=== PATIENT | male | born 1940 | race Caucasian/White ===

== ENCOUNTER 2021-04-11 11:32 | Observation (INO) ==
[2021-04-11] MEDS ORDERED: guaiFENesin 600 MG TABCR PO STA (12:13)
[2021-04-11] MEDS ORDERED: SODIUM CHLORIDE 0.9% 500 ML IV ONE (12:13)
[2021-04-11] MEDS ORDERED: ALBUTEROL HFA 8 GM INHALER INH ONE (12:13)
[2021-04-11 12:39] LABS: Basophils # (auto) 0.01 K/uL (0-0.2); Basophils % (auto) 0.2 %; Eosinophils # (auto) 0.01 K/uL (0-0.5); Eosinophils % (auto) 0.2 %; Hematocrit (blood only) 40.1 % (42-52); Hemoglobin 13.5 g/dL (14.0-18.0); Lymphocytes % (auto) 21.1 %; Mean Corpuscular Hemoglobin 29.5 pg (25-34); Mean Corpuscular Hgb Conc 33.7 g/dL (32-36); Mean Corpuscular Volume 87.6 fL (80-100); Monocytes # (auto) 0.31 K/uL (0.11-0.59); Monocytes % (auto) 7.3 %; Neutrophils # (auto) 3.03 K/uL (1.4-6.5); Neutrophils % (auto) 71.2 %; Platelet Count 169 K/uL (130-400); RDW Coefficient of Variation 15.4 % (11.5-14.5); RDW Standard Deviation 49.8 fL (36.4-46.3); Red Blood Count 4.58 M/uL (4.7-6.1); White Blood Count 4.26 K/uL (4.8-10.8)
--- NOTE | 2021-04-11 12:54 | XRay Report ---
XR chest 1V portable CLINICAL HISTORY: Atypical chest pain COMPARISON STUDY: 10/02/2018 FINDINGS: The heart is at the upper limits of normal in size. There is a left subclavian dual-chamber central venous pacemaker. There is no failure. There is no focal pulmonary consolidation. There are no pleural effusions.[ IMPRESSION: No active disease in the chest. ACT 112: Negative or not required by law. Electronically signed by: Stevan Hackett M.D. 04/11/2021 12:53 PM
[2021-04-11 13:02] LABS: Albumin Level 3.2 gm/dl (3.4-5.0); BUN Creatinine Ratio 16.8 (10-20); Calcium 8.8 mg/dl (8.5-10.1); Creatinine Clr Calc Pharmacy 82.8 ml/min; Est GFR (African American) 95.4 ml/min; Est GFR (Non-African American) 82.3 ml/min; Phosphorus 3.2 mg/dl (2.5-4.9)
[2021-04-11 13:27] LABS: Albumin Globulin Ratio 0.8 (0.9-2); Bilirubin,Total 0.3 mg/dl (0.2-1); Globulin 4.2 gm/dl (2.5-4.0); Thyroid Stimulating Hormone 1.15 uIu/ml (0.300-4.500); Total Protein 7.4 gm/dl (6.4-8.2); Troponin I 0.03 ng/ml (0-0.045)
[2021-04-11] MEDS ORDERED: dexAMETHasone**PF** 10 MG/ML VIAL IV ONE (14:36)
[2021-04-11] MEDS ORDERED: ONDANSETRON INJ 2 MG/ML 2 ML VIAL IV STA (14:38)
[2021-04-11] MEDS ORDERED: FAMOTIDINE 20MG IV PUSH 20 MG/5 ML SYR IV STA (14:38)
--- NOTE | 2021-04-11 15:12 | CT Scan Report ---
CT head/brain wo con CLINICAL HISTORY: 80 years-old Male with confusion, covid. Acutely altered mental status. COVID Posi tive. TECHNIQUE: Multiple axial CT images of the head were obtained without contrast. A dose lowering tech nique was utilized adhering to the principles of ALARA. CT DOSE: 853.38 mGy.cm COMPARISON: Head CT 10/02/2018. FINDINGS: No acute intracranial hemorrhage, midline shift, intracranial mass, hydrocephalus, territorial ischem ia or abnormal extra-axial collection. Age-related involutional changes with ex vacuo ventriculomegal y. Extensive and confluent white matter hypodensities suggestive of chronic microvascular ischemic di sease, similar to comparison. Cerebral vascular calcifications. The calvarium is intact. Mastoid air cells are clear. Mild mucoperiosteal thickening of the ethmoid air cells. Unremarkable orbits and soft tissues. IMPRESSION: No acute intracranial abnormality. ACT 112: Negative or not required by law. The above report was generated using voice recognition software. It may contain grammatical, syntax o r spelling errors. Electronically signed by: Yusef Perry M.D. 04/11/2021 3:10 PM
--- NOTE | 2021-04-11 16:01 | History & Physical Report ---
Date of Service April 11, 2021 Assessment & Plan (1) SARS-CoV-2 positive: Mr. Quiroz is an 80 year old male with a history of Insulin-Requiring Type 2 Diabetes Mellitus, Dyslipidemia, Prior CVA, and a Permanent Dual Chamber Pacemaker who presents today with illness over the past 5 days. Patient currently has a coronavirus outbreak in his family, and they beginning on Wednesday, he began to feel poorly, lethargic, with some mild achiness. As the days progressed, he seems to get periodically confused, and is feeling poorly in general. Over the past couple of days he has had fevers and chills. He has had a mild but nonproductive cough. He denies any shortness of breath at this time. Patient denies any dyspnea on exertion, chest pain, chest heaviness, chest tightness, or chest pressure. He denies any sputum production or hemoptysis. His appetite is normal. He has not had any vomiting or diarrhea. And denies any headache or stiff neck. Because of these symptoms, patient's daughter brought him in for further evaluation. He has tested positive for SARS-CoV-2. While in the emergency room he became transiently confused and his O2 saturation dropped down to 90%. Subsequent CT scan of the head shows no acute processes. Chest x-ray does not show any infiltrates. Due to his transiently altered mental status, borderline hypoxia, close exposure to COVID-19, and testing SARS-CoV-2 positive recommend the following: -- Admit to observation status on telemetry. -- Continue supplemental oxygen to maintain O2 saturation greater than 94%. -- IV Dexamethasone 6 mg daily. -- COVID precautions. -- Supportive measures. (2) Type 2 diabetes mellitus: -- Glycemic pharmacy consultation. -- BSG checks. -- Diabetic diet. (3) Dyslipidemia: -- Continue Atorvastatin 40 mg daily. (4) Pacemaker: Permanent dual chamber pacemaker. -- No cardiac symptoms. (5) Elevated blood pressure reading: -- Patient's daughter states that his blood pressure has been running low recently. His blood pressure in the emergency room was elevated. -- Continue to monitor. -- If necessary, can add a calcium channel mary ann or p.r.n. hydralazine. History of Present Illness Chief Complaint: -- SARS CoV-2. -- Transient Hypoxia. -- Transient Confusion. Primary Care Provider: Melany Olson MD Mr. Quiroz is an 80 year old male with a history of Insulin-Requiring Type 2 Diab etes Mellitus, Dyslipidemia, Prior CVA, and a Permanent Dual Chamber Pacemaker who presents today with illness over the past 5 days. Patient currently has a coronavirus outbreak in his family, and they beginning on Wednesday, he began to feel poorly, lethargic, with some mild achiness. As the days progressed, he seems to get periodically confused, and is feeling poorly in general. Over the past couple of days he has had fevers and chills. He has had a mild but nonproductive cough. He denies any shortness of breath at this time. Patient denies any dyspnea on exertion, chest pain, chest heaviness, chest tightness, or chest pressure. He denies any sputum production or hemoptysis. His appetite is normal. He has not had any vomiting or diarrhea. And denies any headache or stiff neck. Because of these symptoms, patient's daughter brought him in for further evaluation. He has tested positive for SARS-CoV-2. While in the emergency room he became transiently confused and his O2 saturation dropped down to 90%. CT scan of the head shows no acute processes. Chest x-ray does not show any infiltrates. Allergies Allergy/AdvReac Type Severity Reaction Status Date / Time No Known Allergies Allergy Unverified 04/11/21 14:52 Home Medications Medication Instructions Recorded Confirmed Type aspirin [Aspirin Low Dose] 81 mg PO QAM 10/02/18 04/11/21 History atorvastatin [Lipitor] 40 mg PO QPM 10/02/18 04/11/21 History docusate sodium 100 mg PO QPM 10/02/18 04/11/21 History insulin NPH and regular human 10 units SUBCUT QPM 10/02/18 04/11/21 History [Novolin 70/30 U-100 Insulin] insulin NPH and regular human 23 units SUBCUT QAM 10/02/18 04/11/21 History [Novolin 70/30 U-100 Insulin] metformin 1,000 mg PO BID 10/02/18 04/11/21 History tamsulosin [Flomax] 0.4 mg PO Q2D 10/02/18 04/11/21 History vitamin B complex 1 cap PO QAM 10/02/18 04/11/21 History cholecalciferol (vitamin D3) 25 mcg PO HS 05/14/21 05/14/21 History [Vitamin D3] ferrous sulfate [iron] 325 mg PO HS 04/11/21 04/11/21 History lactobacillus combination no.4 0 mmu cells PO HS 04/11/21 04/11/21 History [Probiotic] multivitamin 1 tab PO QAM 04/11/21 04/11/21 History Past Med/Surg History Medical History (Updated 04/11/21 @ 15:58 by Dane Schreiber PA-C) History of stroke Surgical History History of permanent cardiac pacemaker placement Family History Other No pertinent family history Social History Smoking Status: Former smoker Tobacco Type: Cigarettes Preferred Language: Urdu Communication Ability: Effective Feels Safe at Home: Yes Review of Systems Review of Systems: All systems reviewed & are unremarkable except as noted in Subjective Physical Exam Physical Exam: GENERAL: Patient in no acute distress. Supplemental oxygen is in place. HEENT: Head is atraumatic, normocephalic. EOM's intact. Facies symmetric. No perioral cyanosis. Mucous membranes moist. NECK: No JVD. JVP is not elevated Carotid upstrokes are + 2 bilaterally. No bruits are noted. CHEST/LUNGS: Clear to auscultation throughout all lung flores. No wheezes, rales, or crackles. CVS: S1 and S2 are regular without obvious murmurs, gallops, or rubs. PMI is nondisplaced. No lifts, heaves, or thrills. No abdominal aortic or renal bruits. Palpable pacemaker generator present left subclavian fossa. ABDOMINAL EXAM: Bowel sounds are present. No masses, organomegaly, or tenderness. EXTREMITIES: No clubbing or cyanosis. No edema. Intact radial pulses bilaterally. NEUROLOGIC EXAM: Patient is awake, alert, and interactive. Pleasant and cooperative. Answers questions appropriately. Speech is clear. Normal movement in all 4 extremities. Gait pattern was not assessed. EKG 04/11/21: -- Atrially sensed, electronic V-paced rhythm with prolonged AV conduction. -- CO interval is prolonged at 266 msec. -- QRS duration 176 msec secondary to pacemaker induced left bundle-branch block. -- Correct QT interval is prolonged at 502 msec Results & Data Results & Data ([facility]) Vital Signs (Past 12 Hours) Vital Signs Temp Pulse Pulse Resp BP BP Pulse Ox 04/11/21 15:28 38.5 C H 99 H 29 H 167/85 H 94 04/11/21 12:15 88 15 97 04/11/21 11:36 37.1 C 87 87 18 163/77 H 163/77 H 96 Laboratory Results Laboratory Results - last 24 hr 04/11/21 04/11/21 04/11/21 12:23 12:23 12:23 WBC 4.26 L RBC 4.58 L Hgb 13.5 L Hct 40.1 L MCV 87.6 MCH 29.5 MCHC 33.7 RDW Std Deviation 49.8 H RDW Coeff of Jean Maire 15.4 H Plt Count 169 MPV 11.0 H Immature Gran % (Auto) 0.0 Neut % (Auto) 71.2 Lymph % (Auto) 21.1 Petroleum % (Auto) 7.3 Eos % (Auto) 0.2 Baso % (Auto) 0.2 Neut # (Auto) 3.03 Lymph # (Auto) 0.90 L Petroleum # (Auto) 0.31 Eos # (Auto) 0.01 Baso # (Auto) 0.01 Immature Gran # (Auto) 0.00 PT Cancelled INR Cancelled Sodium 134 L Potassium Chloride 101 Carbon Dioxide 29 Anion Gap 4.0 BUN 14 Creatinine 0.85 Est Cr Clr Drug Dosing 82.8 Est GFR ( Amer) 95.4 Est GFR (Non-Af Amer) 82.3 BUN/Creatinine Ratio 16.8 Glucose 196 H POC Glucose Calcium 8.8 Phosphorus 3.2 Magnesium Total Bilirubin 0.3 Direct Bilirubin AST ALT 50 Alkaline Phosphatase 99 Troponin I 0.030 Total Protein 7.4 Albumin 3.2 L Globulin 4.2 H Albumin/Globulin Ratio 0.8 L Lipase 64 L TSH 1.150 COVID-19 Eval Order SARS-CoV-2 (PCR) 04/11/21 04/11/21 04/11/21 14:22 Unknown Unknown WBC RBC Hgb Hct MCV MCH MCHC RDW Std Deviation RDW Coeff of Jean Marie Plt Count MPV Immature Gran % (Auto) Neut % (Auto) Lymph % (Auto) Petroleum % (Auto) Eos % (Auto) Baso % (Auto) Neut # (Auto) Lymph # (Auto) Petroleum # (Auto) Eos # (Auto) Baso # (Auto) Immature Gran # (Auto) PT INR Sodium Potassium Chloride Carbon Dioxide Anion Gap BUN Creatinine Est Cr Clr Drug Dosing Est GFR ( Amer) Est GFR (Non-Af Amer) BUN/Creatinine Ratio Glucose POC Glucose 113 H Calcium Phosphorus Magnesium Total Bilirubin Direct Bilirubin AST ALT Alkaline Phosphatase Troponin I Total Protein Albumin Globulin Albumin/Globulin Ratio Lipase TSH COVID-19 Eval Order Covid19 at [facility] SARS-CoV-2 (PCR) POSITIVE A* Diagnostic Findings HEAD CT SCAN 04/11/21: No acute intracranial hemorrhage, midline shift, intracranial mass, hydrocephalus, territorial ischemia or abnormal extra-axial collection. Age- related involutional changes with ex vacuo ventriculomegaly. Extensive and confluent white matter hypodensities suggestive of chronic microvascular ischemic disease, similar to comparison. Cerebral vascular calcifications. The calvarium is intact. Mastoid air cells are clear. Mild mucoperiosteal thickening of the ethmoid air cells. Unremarkable orbits and soft tissues. IMPRESSION: -- No acute intracranial abnormality. CXR 04/11/21: -- The heart is at the upper limits of normal in size. -- There is a left subclavian dual-chamber central venous pacemaker. -- There is no failure. -- There is no focal pulmonary consolidation. -- There are no pleural effusions. IMPRESSION: -- No active disease in the chest. Code Status & VTE Plan VTE Prophylaxis Plan VTE Prophylaxis will be ordered: Yes Supervising Physician Co-Signing Physician Notes patient not seen by physician to prevent COVID exposure. d/w RICKY, agree with his note above. patient was having issues with fever and cough, prompted ER visit. found to be COVID positive, hypoxic. responding well to 2L NC per chart. plan to continue IV dexamethasone, monitor DM with steroids on board. PG Care Time/CCT Total # of Minutes Spent Total Time Spent with Patient: Total time spent is greater than 50% in coordination of care (as documented) at patient's floor/unit and/or counseling patient:35 Coding Level of Care Code 46277 OBS Care - Level 3 Diagnoses SARS-CoV-2 positive U07.1 Type 2 diabetes mellitus E11.9 Dyslipidemia E78.5 Pacemaker Z95.0 Elevated blood pressure reading R03.0 Time Spent (min) 55
[2021-04-11] MEDS ORDERED: MAGNESIUM HYDROXIDE SUSP 30 ML UDC PO PRN (18:56)
[2021-04-11] MEDS ORDERED: NITROGLYCERIN SL 0.4 MG/TAB TAB SL PRN (18:56)
[2021-04-11] MEDS ORDERED: POLYETHYLENE (MIRALAX) 17 GM PACK PO PRN (18:56)
[2021-04-11] MEDS ORDERED: ZOLPIDEM TARTRATE 5 MG TAB PO PRN (18:56)
[2021-04-11] MEDS ORDERED: ONDANSETRON INJ 2 MG/ML 2 ML VIAL IV PRN (18:56)
[2021-04-11] MEDS ORDERED: ALUMINUM/MAGNESIUM SUSP 30 ML UDC PO PRN (18:56)
[2021-04-11] MEDS ORDERED: PHARMACY GLYCEMIC MGMT CONSULT SCH (19:22)
[2021-04-11] MEDS ORDERED: SODIUM CHLORIDE 0.9% 1000ML 1,000 ML IV SCH (19:30)
[2021-04-11] MEDS ORDERED: INSULIN HUMAN NPH SC STA ×2 (19:37→21:46)
--- NOTE | 2021-04-11 19:47 | Pharmacy Report ---
Pharmacy Glycemic Short Note 2 - Date of Service April 11, 2021 - Glycemic Short BSG Results (Last 24 hours): 04/11/21 04/11/21 12:23 14:22 Glucose 196 H POC Glucose 113 H OUTPATIENT ANTIDIABETIC REGIMEN: * Metformin 1000 mg PO BIDM * Relion N 70/30 - 25 units SC AM + 15 units SC PM * HbA1c pending ASSESSMENT: * 80 yo M admitted secondary to Covid pneumonia. Pharmacy has been consulted to assist with inpatient glycemic management. * Admission BSG was 196 mg/dL. Trended down to 113 mg/dL later. He did receive 6 mg of IV dexamethasone in the ED which will be continued upon admission. * Will utilize NPH to help with transition back to home insulin upon discharge. Will give full home dose of NPH now x 1 given patient received Dexamethasone. * Pending BSG this evening, may need another dose of NPH. Defer AM dose of NPH until AM BSG returns. * Will start aggressive Novolog based on weight and stress of three to help manage steroid-induced postprandial hyperglycemia. Utilizing goal range of 110-140 mg/dL. Hold metformin while inpatient. PLAN FOR INPATIENT GLYCEMIC CONTROL: * Hold outpatient oral diabetes medications * Basal insulin * NPH 10 units SC x 1 * Bolus insulin * NovoLog per scale ACHS or Q6hrs while NPO * Goal Range: Low 110 mg/dL - High 140 mg/dL * Correction Factor: 15 mg/dL/unit * Nutritional / Prandial insulin per carb ratio of 1 unit per 5 grams CHO consumed PLAN FOR DISCHARGE: * To be determined
[2021-04-11] MEDS: ALBUTEROL HFA 8 GM INHALER INH SCH (19:53)
[2021-04-11] MEDS ORDERED: INSULIN HUMAN 70% NPH/30% REGULAR SQ SCH (21:00)
[2021-04-11] MEDS: INSULIN ASPART 100 UNITS/ML 3 ML PEN SC SCH ×2 (21:00→21:21)
[2021-04-11] MEDS: ASPIRIN 81 MG ECTAB PO SCH (21:01)
[2021-04-11] MEDS: ATORVASTATIN 40 MG TAB PO SCH (21:01)
[2021-04-11] MEDS: DOCUSATE SODIUM 100 MG CAP PO SCH (21:02)
[2021-04-11] MEDS: FERROUS SULFATE 325 MG TAB PO SCH (21:02)
[2021-04-11] MEDS: guaiFENesin 600 MG TABCR PO SCH (21:03)
[2021-04-11] MEDS: HEPARIN SOD 5,000 UNIT/0.5 ML VIAL SQ SCH (21:04)
[2021-04-11] MEDS: ADVANCED PROBIOTIC 1250 MG CAPSULE PO SCH (21:04)
[2021-04-11] MEDS: CHOLECALCIFEROL 1,000 UNITS 25 MCG TAB PO SCH (21:04)
--- NOTE | 2021-04-11 21:39 | Emergency Department Note ---
Impression & Plan COVID-19, Hypoxia, Nausea & vomiting ED Provider Note NAME: BRYANT COLLAZO AGE: 80 SEX: M ARRIVES VIA: Ambulance INFORMANT: Patient, Daughter ED PROVIDER(S): Maurice Patel MD CHIEF COMPLAINT: Cough, feverish, weakness PLAN: Disposition: Admit MEDICAL DECISION MAKING: The patient is a pleasant 80-year-old gentleman with a past medical history of hypertension, diabetes, hyperlipidemia who presents to the emergency department accompanied by his daughter concern for cough, congestion, feverishness and generalized weakness over the past week. They report other family members had mild congestion earlier in the week that resolved. One of their family members was tested for COVID-19 and was negative. On initial evaluation the patient denied any particular complaints. On arrival the patient is afebrile with stable VSS. He appears clinically dry. He has a scant intermittent wheeze but is otherwise clear. Abdomen is benign. EKG is paced without overt acute ischemia. Chest x-ray negative for acute cardiopulmonary process. WBC 4.2 with lymphopenia to 0.9. H/H 13.5/40.1 proximal to prior values though no recent for comparison. Glucose 196 however chemistry without metabolic acidosis. Electrolytes without significant abnormality. LFTs were unremarkable. Troponin 0.03, within normal limits. Patient's COVID-[address] of the head was performed after the patient had some disorientation where he did not remember where he was after napping briefly but then recovered and was answering questions appropriately. CT of the head was negative for acute process. Of note during reevaluation following patient's delirium it was noted that his O2 saturation did decrease 90% on room air. Additionally he became suddenly nauseated and was vomiting. Thus, given the patient's confirmed COVID- 19 infection, symptomatic with mild hypoxia reasonable to admit the patient for further management. Dexamethasone administered. Patient and daughter at the bedside were in agreement with this plan. Case was discussed with Dr. Ramirez, [facility] [place], who will evaluate the patient for admission. Triage Nursing notes reviewed and agree them. Prior medical records reviewed Vital Signs: reviewed and remarkable for no significant abnormalities Differential diagnosis: Infection, dehydration, metabolic abnormality, hypo/hyperglycemia, electrolyte disturbance, anemia, hypoxia, cardiac sources, intracerebral event, toxicologic, neurologic, as well as other pathologies. ER treatment provided: See below. Diagnostics interpreted by me: ECG: Atrial sensed ventricular paced rhythm, 86 bpm, no ectopy, no overt acute ischemia. Cardiac Monitoring: An order for continuous cardiac monitoring was placed and demonstrated Atrial sensed ventricular paced rhythm, 86 bpm, no ectopy. Laboratory studies: See below Imaging studies: See below Consultation(s): Dr. Ramirez, [facility] [place] HPI: The patient is a pleasant 80-year-old gentleman with a past medical history of hypertension, diabetes, hyperlipidemia who presents to the emergency de partment accompanied by his daughter concern for cough, congestion, feverishness and generalized weakness over the past week. They report other family members had mild congestion earlier in the week that resolved. One of their family members was tested for COVID-19 and was negative. On initial evaluation the patient denied any particular complaints. ROS: See above HPI for pertinent positives & negatives. A total of 10 systems reviewed and were otherwise negative. PAST MEDICAL HISTORY:See Below PAST SURGICAL HISTORY:See Below FAMILY HISTORY:See Below SOCIAL HISTORY:See Below HOME MEDICATIONS:See Below ALLERGIES:See Below VITALS:See Below PHYSICAL EXAMINATION: GENERAL: Awake, alert, fatigued-appearing, in no distress HENT: Normocephalic, atraumatic. Oropharynx with dry mucous membranes and otherwise unremarkable. EYES: Normal conjunctiva. Sclera non-icteric. NECK: Supple. No nuchal rigidity. FROM. No JVD. RESPIRATORY: Scant intermittent wheeze but is otherwise clear. CARDIAC: Regular rate, normal rhythm. Extremities warm and well perfused. Pulses equal. ABDOMEN: Soft, non-distended. No tenderness to palpation. No rebound or guarding. No masses. RECTAL: Deferred. MUSCULOSKELETAL: Chest examination reveals no tenderness. The back is symmet rical on inspection without obvious abnormality. There is no CVA tenderness to palpation. No joint edema. LOWER EXTREMITIES: Calves are equal size bilaterally and non-tender. No edema. No discoloration. NEURO: Normal sensorium. No sensory or motor deficits noted. SKIN: No rash or jaundice noted. Maurice Patel MD Past Med/Surg History Medical History Dyslipidemia History of stroke Type 2 diabetes mellitus Surgical History History of permanent cardiac pacemaker placement Family History Other No pertinent family history Social History Smoking Status: Former smoker Tobacco Type: Cigarettes Second Hand Exposure: No; Do You Dip or Chew Tobacco: No; Hx Alcohol Use: No Hx Substance Use: No Preferred Language: Honduran Communication Ability: Effective Shear Grinder Operator Required: No Beliefs That Will Affect Care: None Current Living Situation: Family Feels Safe at Home: Yes Safety Concerns: Feels Safe At This Time Assistive Devices: Glasses and Walker Allergies Allergies Allergy/AdvReac Type Severity Reaction Status Date / Time No Known Allergies Allergy Unverified 04/11/21 14:52 Home Meds Home Medications Medication Instructions Recorded Confirmed aspirin [Aspirin Low Dose] 81 mg PO QAM 10/02/18 04/11/21 atorvastatin [Lipitor] 40 mg PO QPM 10/02/18 04/11/21 docusate sodium 100 mg PO QPM 10/02/18 04/11/21 insulin NPH and regular human 10 units SUBCUT QPM 10/02/18 04/11/21 [Novolin 70/30 U-100 Insulin] insulin NPH and regular human 23 units SUBCUT QAM 10/02/18 04/11/21 [Novolin 70/30 U-100 Insulin] metformin 1,000 mg PO BID 10/02/18 04/11/21 tamsulosin [Flomax] 0.4 mg PO Q2D 10/02/18 04/11/21 vitamin B complex 1 cap PO QAM 10/02/18 04/11/21 cholecalciferol (vitamin D3) 25 mcg PO HS 04/11/21 04/11/21 [Vitamin D3] ferrous sulfate [iron] 325 mg PO HS 04/11/21 04/11/21 lactobacillus combination no.4 0 mmu cells PO HS 04/11/21 04/11/21 [Probiotic] multivitamin 1 tab PO QAM 04/11/21 04/11/21 Results & Data (ED) Vital Signs Vital Signs - 24 hr 04/11/21 11:36 04/11/21 12:15 04/11/21 12:30 Temperature 37.1 C Temperature Source Oral Pulse Rate 87 88 88 Pulse Rate [Apical] 87 Pulse Rate from SpO2 Sensor 88 Pulse Rhythm Regular Pulse Rhythm [Apical] Regular Pulse Strength [Apical] Normal Respiratory Rate 18 15 21 Respiratory Effort / Characteristics Non-Labored Spontaneous Respiratory Depth Normal Blood Pressure 163/77 H 138/80 Blood Pressure [Right Arm] 163/77 H Blood Pressure Mean 105 99 Blood Pressure Mean [Right Arm] 105 Blood Pressure Position Lying Blood Pressure Position [Right Arm] Semi-fowlers Pulse Oximetry 96 97 96 Oxygen Delivery Method Room Air Room Air Oxygen Flow Rate Sepsis New/Unexplained Change in Mental Status No Sepsis Action Taken by Nursing No Action Required 04/11/21 12:41 04/11/21 12:50 04/11/21 13:00 Temperature Temperature Source Pulse Rate 86 87 90 Pulse Rate [Apical] Pulse Rate from SpO2 Sensor 86 88 91 H Pulse Rhythm Pulse Rhythm [Apical] Pulse Strength [Apical] Respiratory Rate 19 25 H 22 Respiratory Effort / Characteristics Respiratory Depth Blood Pressure 145/76 H Blood Pressure [Right Arm] Blood Pressure Mean 99 Blood Pressure Mean [Right Arm] Blood Pressure Position Blood Pressure Position [Right Arm] Pulse Oximetry 96 95 94 Oxygen Delivery Method Oxygen Flow Rate Sepsis New/Unexplained Change in Mental Status Sepsis Action Taken by Nursing 04/11/21 13:01 04/11/21 13:11 04/11/21 13:20 Temperature Temperature Source Pulse Rate 96 H 94 H 92 H Pulse Rate [Apical] Pulse Rate from SpO2 Sensor 96 H 92 H 92 H Pulse Rhythm Pulse Rhythm [Apical] Pulse Strength [Apical] Respiratory Rate 23 17 20 Respiratory Effort / Characteristics Respiratory Depth Blood Pressure Blood Pressure [Right Arm] Blood Pressure Mean Blood Pressure Mean [Right Arm] Blood Pressure Position Blood Pressure Position [Right Arm] Pulse Oximetry 96 93 95 Oxygen Delivery Method Oxygen Flow Rate Sepsis New/Unexplained Change in Mental Status Sepsis Action Taken by Nursing 04/11/21 13:30 04/11/21 13:41 04/11/21 13:50 Temperature Temperature Source Pulse Rate 97 H Pulse Rate [Apical] Pulse Rate from SpO2 Sensor 93 H 97 H 94 H Pulse Rhythm Pulse Rhythm [Apical] Pulse Strength [Apical] Respiratory Rate 26 H Respiratory Effort / Characteristics Respiratory Depth Blood Pressure 153/93 H Blood Pressure [Right Arm] Blood Pressure Mean 113 Blood Pressure Mean [Right Arm] Blood Pressure Position Blood Pressure Position [Right Arm] Pulse Oximetry 94 96 93 Oxygen Delivery Method Oxygen Flow Rate Sepsis New/Unexplained Change in Mental Status Sepsis Action Taken by Nursing 04/11/21 14:00 04/11/21 14:11 04/11/21 14:20 Temperature Temperature Source Pulse Rate Pulse Rate [Apical] Pulse Rate from SpO2 Sensor 96 H 93 H 97 H Pulse Rhythm Pulse Rhythm [Apical] Pulse Strength [Apical] Respiratory Rate Respiratory Effort / Characteristics Respiratory Depth Blood Pressure 157/79 H Blood Pressure [Right Arm] Blood Pressure Mean 105 Blood Pressure Mean [Right Arm] Blood Pressure Position Blood Pressure Position [Right Arm] Pulse Oximetry 93 92 93 Oxygen Delivery Method Oxygen Flow Rate Sepsis New/Unexplained Change in Mental Status Sepsis Action Taken by Nursing 04/11/21 14:30 04/11/21 14:41 04/11/21 14:51 Temperature Temperature Source Pulse Rate Pulse Rate [Apical] Pulse Rate from SpO2 Sensor 102 H 99 H 97 H Pulse Rhythm Pulse Rhythm [Apical] Pulse Strength [Apical] Respiratory Rate Respiratory Effort / Characteristics Respiratory Depth Blood Pressure 168/95 H Blood Pressure [Right Arm] Blood Pressure Mean 119 Blood Pressure Mean [Right Arm] Blood Pressure Position Blood Pressure Position [Right Arm] Pulse Oximetry 96 97 97 Oxygen Delivery Method Oxygen Flow Rate Sepsis New/Unexplained Change in Mental Status Sepsis Action Taken by Nursing 04/11/21 15:09 04/11/21 15:10 04/11/21 15:21 Temperature Temperature Source Pulse Rate Pulse Rate [Apical] Pulse Rate from SpO2 Sensor 94 H 98 H 97 H Pulse Rhythm Pulse Rhythm [Apical] Pulse Strength [Apical] Respiratory Rate Respiratory Effort / Characteristics Respiratory Depth Blood Pressure Blood Pressure [Right Arm] Blood Pressure Mean Blood Pressure Mean [Right Arm] Blood Pressure Position Blood Pressure Position [Right Arm] Pulse Oximetry 96 96 97 Oxygen Delivery Method Oxygen Flow Rate Sepsis New/Unexplained Change in Mental Status Sepsis Action Taken by Nursing 04/11/21 15:28 04/11/21 15:30 04/11/21 15:40 Temperature 38.5 C H Temperature Source Oral Pulse Rate 90 99 H Pulse Rate [Apical] 99 H Pulse Rate from SpO2 Sensor 96 H 99 H Pulse Rhythm Pulse Rhythm [Apical] Regular Pulse Strength [Apical] Normal Respiratory Rate 29 H 26 H 28 H Respiratory Effort / Characteristics Non-Labored Spontaneous Respiratory Depth Normal Blood Pressure 167/85 H Blood Pressure [Right Arm] 167/85 H Blood Pressure Mean 112 Blood Pressure Mean [Right Arm] 112 Blood Pressure Position Blood Pressure Position [Right Arm] Pulse Oximetry 94 94 94 Oxygen Delivery Method Nasal Cannula Oxygen Flow Rate 2 Sepsis New/Unexplained Change in Mental Status Sepsis Action Taken by Nursing Laboratory Data Attestation: I reviewed the patient's lab results. Result diagrams: 04/11/21 12:23 04/11/21 12:23 Lab Results 04/11/21 04/11/21 04/11/21 Range/Units 12:23 12:23 12:23 WBC 4.26 L (4.8-10.8) K/uL RBC 4.58 L (4.7-6.1) M/uL Hgb 13.5 L (14.0-18.0) g/dL Hct 40.1 L (42-52) % MCV 87.6 (80-100) fL MCH 29.5 (25-34) pg MCHC 33.7 (32-36) g/dL RDW Std Deviation 49.8 H (36.4-46.3) fL RDW Coeff of Jean Marie 15.4 H (11.5-14.5) % Plt Count 169 (130-400) K/uL MPV 11.0 H (7.4-10.4) fL Immature Gran % (Auto) 0.0 % Neut % (Auto) 71.2 % Lymph % (Auto) 21.1 % Smith % (Auto) 7.3 % Eos % (Auto) 0.2 % Baso % (Auto) 0.2 % Neut # (Auto) 3.03 (1.4-6.5) K/uL Lymph # (Auto) 0.90 L (1.2-3.4) K/uL Smith # (Auto) 0.31 (0.11-0.59) K/uL Eos # (Auto) 0.01 (0-0.5) K/uL Baso # (Auto) 0.01 (0-0.2) K/uL Immature Gran # (Auto) 0.00 (0.00-0.02) K/uL PT Cancelled INR Cancelled Sodium 134 L (136-145) mmol/L Potassium (3.5-5.1) mmol/L Chloride 101 (98-107) mmol/L Carbon Dioxide 29 (21-32) mmol/L Anion Gap 4.0 (3-11) BUN 14 (7-18) mg/dl Creatinine 0.85 (0.6-1.4) mg/dl Est Cr Clr Drug Dosing 82.8 ml/min Est GFR ( Amer) 95.4 ml/min Est GFR (Non-Af Amer) 82.3 ml/min BUN/Creatinine Ratio 16.8 (10-20) Glucose 196 H (70-99) mg/dl POC Glucose (70-99) mg/dl Calcium 8.8 (8.5-10.1) mg/dl Phosphorus 3.2 (2.5-4.9) mg/dl Magnesium (1.8-2.4) mg/dl Total Bilirubin 0.3 (0.2-1) mg/dl Direct Bilirubin (0-0.2) mg/dl AST (15-37) U/L ALT 50 (12-78) U/L Alkaline Phosphatase 99 (45-117) U/L Troponin I 0.030 (0-0.045) ng/ml Total Protein 7.4 (6.4-8.2) gm/dl Albumin 3.2 L (3.4-5.0) gm/dl Globulin 4.2 H (2.5-4.0) gm/dl Albumin/Globulin Ratio 0.8 L (0.9-2) Lipase 64 L (73-393) U/L TSH 1.150 (0.300-4.500) uIu/ml 04/11/21 Range/Units 14:22 WBC (4.8-10.8) K/uL RBC (4.7-6.1) M/uL Hgb (14.0-18.0) g/dL Hct (42-52) % MCV (80-100) fL MCH (25-34) pg MCHC (32-36) g/dL RDW Std Deviation (36.4-46.3) fL RDW Coeff of Jean Marie (11.5-14.5) % Plt Count (130-400) K/uL MPV (7.4-10.4) fL Immature Gran % (Auto) % Neut % (Auto) % Lymph % (Auto) % Smith % (Auto) % Eos % (Auto) % Baso % (Auto) % Neut # (Auto) (1.4-6.5) K/uL Lymph # (Auto) (1.2-3.4) K/uL Smith # (Auto) (0.11-0.59) K/uL Eos # (Auto) (0-0.5) K/uL Baso # (Auto) (0-0.2) K/uL Immature Gran # (Auto) (0.00-0.02) K/uL PT INR Sodium (136-145) mmol/L Potassium (3.5-5.1) mmol/L Chloride (98-107) mmol/L Carbon Dioxide (21-32) mmol/L Anion Gap (3-11) BUN (7-18) mg/dl Creatinine (0.6-1.4) mg/dl Est Cr Clr Drug Dosing ml/min Est GFR ( Amer) ml/min Est GFR (Non-Af Amer) ml/min BUN/Creatinine Ratio (10-20) Glucose (70-99) mg/dl POC Glucose 113 H (70-99) mg/dl Calcium (8.5-10.1) mg/dl Phosphorus (2.5-4.9) mg/dl Magnesium (1.8-2.4) mg/dl Total Bilirubin (0.2-1) mg/dl Direct Bilirubin (0-0.2) mg/dl AST (15-37) U/L ALT (12-78) U/L Alkaline Phosphatase (45-117) U/L Troponin I (0-0.045) ng/ml Total Protein (6.4-8.2) gm/dl Albumin (3.4-5.0) gm/dl Globulin (2.5-4.0) gm/dl Albumin/Globulin Ratio (0.9-2) Lipase (73-393) U/L TSH (0.300-4.500) uIu/ml Administered Medications Albuterol (Albuterol Hfa 8 Gm Inhaler) 2 puffs INH Q6R ADELITA Stop: 05/11/21 18:59 Last Admin: 04/12/21 00:44 Dose: 2 puffs Documented by: [id number] Admin: 04/11/21 19:53 Dose: 2 puffs Documented by: [id number] Aspirin (Aspirin 81 Mg Ectab) 81 mg PO QAM ADELITA Stop: 05/11/21 18:55 Last Admin: 04/11/21 21:01 Dose: 81 mg Documented by: [id number] Atorvastatin Calcium (Atorvastatin 40 Mg Tab) 40 mg PO QPM ADELITA Stop: 05/11/21 20:59 Last Admin: 04/11/21 21:01 Dose: 40 mg Documented by: [id number] Docusate Sodium (Docusate Sodium 100 Mg Cap) 100 mg PO QPM [facility] Stop: 05/11/21 20:59 Last Admin: 04/11/21 21:02 Dose: 100 mg Documented by: [id number] Ferrous Sulfate (Ferrous Sulfate 325 Mg Tab) 325 mg PO HS [facility] Stop: 05/11/21 20:59 Last Admin: 04/11/21 21:02 Dose: 325 mg Documented by: [id number] Guaifenesin (Guaifenesin 600 Mg Tabcr) 1,200 mg PO Q12 [facility] Stop: 05/11/21 20:59 Last Admin: 04/11/21 21:03 Dose: 1,200 mg Documented by: [id number] Heparin Sodium (Porcine) (Heparin Sod 5,000 Unit/0.5 Ml Vial) 5,000 units SQ Q12 [facility] Stop: 05/11/21 20:59 Last Admin: 04/11/21 21:04 Dose: 5,000 units Documented by: [id number] Sodium Chloride (Nss 1000ml) 1,000 mls @ 80 mls/hr IV .[id number] [facility] Stop: 04/12/21 07:59 Last Admin: 04/11/21 20:52 Dose: 80 mls/hr Documented by: [id number] Insulin Aspart (Insulin Aspart 100 Units/Ml 3 Ml Pen) [address] [facility]; Protocol Stop: 05/11/21 19:34 Last Admin: 04/11/21 21:21 Dose: Not Given Documented by: [id number] Admin: 04/11/21 21:00 Dose: 8 units Documented by: [id number] Cosigned by: [id number] Insulin Aspart (Insulin Aspart 100 Units/Ml 3 Ml Pen) 0 units SC TODAY@0000,0400 [facility]; Protocol Stop: 04/12/21 04:01 Last Admin: 04/12/21 00:24 Dose: 3 units Documented by: [id number] Cosigned by: [id number] Lactobacillus Acidoph/Casei/Rhamnos (Advanced Probiotic 1250 Mg Capsule) 2 cap PO HS [facility] Stop: 05/11/21 20:59 Last Admin: 04/11/21 21:04 Dose: 2 cap Documented by: [id number] Vitamin D (Cholecalciferol 1,000 Units 25 Mcg Tab) 1,000 units PO HS [facility] Stop: 05/11/21 20:59 Last Admin: 04/11/21 21:04 Dose: 1,000 units Documented by: [id number] Discontinued Medications Albuterol (Albuterol Hfa 8 Gm Inhaler) 2 puffs INH NOW ONE Stop: 04/11/21 12:14 Last Admin: 04/11/21 12:58 Dose: 60 puffs Documented by: [id number] Dexamethasone Sodium Phosphate (DexamethasonePf 10 Mg/Ml Vial) 6 mg IV NOW ONE Stop: 04/11/21 14:37 Last Admin: 04/11/21 15:20 Dose: 6 mg Documented by: [id number] Guaifenesin (Guaifenesin 600 Mg Tabcr) 600 mg PO NOW STA Stop: 04/11/21 12:14 Last Admin: 04/11/21 12:58 Dose: 600 mg Documented by: [id number] Sodium Chloride (Nss) 500 mls @ 999 mls/hr IV .Q31M ONE Stop: 04/11/21 12:43 Last Infusion: 04/11/21 13:30 Dose: 0 mls/hr Documented by: [id number] Admin: 04/11/21 12:59 Dose: 999 mls/hr Documented by: [id number] Famotidine (Pepcid 20mg Iv Push) 20 mg in 5 mls @ 2.5 mls/min IV NOW STA Stop: 04/11/21 14:39 Last Admin: 04/11/21 15:20 Dose: 2.5 mls/min Documented by: [id number] Insulin Human NPH (Insulin Human Nph) 10 units SC NOW STA; Protocol Stop: 04/11/21 19:38 Last Admin: 04/11/21 21:20 Dose: 10 units Documented by: [id number] Cosigned by: [id number] Insulin Human NPH (Insulin Human Nph) 25 units SC NOW STA; Protocol Stop: 04/11/21 21:47 Last Admin: 04/11/21 22:05 Dose: 25 units Documented by: [id number] Cosigned by: [id number] Ondansetron HCl (Ondansetron Inj 2 Mg/Ml 2 Ml Vial) 4 mg IV NOW STA Stop: 04/11/21 14:39 Last Admin: 04/11/21 15:20 Dose: 4 mg Documented by: [id number] Imaging Data Radiologist's Impression: Head CT 04/11/21 14:35 CT head/brain wo con CLINICAL HISTORY: 80 years-old Male with confusion, covid. Acutely altered mental status. COVID Positive. TECHNIQUE: Multiple axial CT images of the head were obtained without contrast. A dose lowering technique was utilized adhering to the principles of ALARA. CT DOSE: 853.38 mGy.cm COMPARISON: Head CT 10/02/2018. FINDINGS: No acute intracranial hemorrhage, midline shift, intracranial mass, hydrocephalus, territorial ischemia or abnormal extra-axial collection. Age- related involutional changes with ex vacuo ventriculomegaly. Extensive and confluent white matter hypodensities suggestive of chronic microvascular ischemic disease, similar to comparison. Cerebral vascular calcifications. The calvarium is intact. Mastoid air cells are clear. Mild mucoperiosteal thickening of the ethmoid air cells. Unremarkable orbits and soft tissues. IMPRESSION: No acute intracranial abnormality. ACT 112: Negative or not required by law. The above report was generated using voice recognition software. It may contain grammatical, syntax or spelling errors. Electronically signed by: Yusef Perry M.D. 04/11/2021 3:10 PM Discharge Plan Visit Data Chief Complaint: Weakness Stated Complaint: WEAKNESS, LETHARGIC ED Provider: Maurice Patel Discharge Problem: COVID-19, Hypoxia, Nausea & vomiting Patient Disposition: Admitted As Inpatient Discharge Instructions Interventions: ED Discharge Assessment Last Done: 04/11/21 17:22 Discharge Problem: Nausea & vomiting Qualifiers: Vomiting type: unspecified Vomiting Intractability: non-intractable Qualified Code(s): R11.2 - Nausea with vomiting, unspecified
[2021-04-11 22:51] LABS: Appearance Urine Clear (Clear); Bacteria Urine Automated Negative (Negative); Bilirubin Urine Negative (Negative); Blood Urine Trace (Negative); Cast Urine Automated 0 /lpf (0-5); Color Urine Yellow; Glucose Urine UA 3+ (Negative); Ketones Urine Trace (Negative); Leukocyte Esterase Urine Negative (Negative); Nitrite Urine Negative (Negative); Protein Urine Negative (Negative); RBC Urine Automated 0-4 /hpf (0-4); Specific Gravity Urine 1.015 (1.000-1.030); Urobilinogen Urine Negative (Negative); WBC Urine Automated 0 /hpf (0-5); pH Urine 6.5 (4.5-7.5)
[2021-04-12] MEDS: INSULIN ASPART 100 UNITS/ML 3 ML PEN SC SCH ×6 (00:24→20:51)
[2021-04-12] MEDS: ALBUTEROL HFA 8 GM INHALER INH SCH ×2 (00:44→07:48)
--- NOTE | 2021-04-12 06:24 | Electrocardiogram Report ---
Test Reason : Blood Pressure : / mmHG Vent. Rate : 086 BPM Atrial Rate : 086 BPM P-R Int : 266 ms QRS Dur : 176 ms QT Int : 420 ms P-R-T Axes : 074 -68 090 degrees QTc Int : 502 ms Atrial-sensed ventricular-paced rhythm with prolonged AV conduction Abnormal ECG When compared with ECG of 02-OCT-2018 19:21, Vent. rate has increased BY 3 BPM Confirmed by Ildefonso Griffin ([id number]) on 04/12/2021 6:24:10 AM Referred By: REFERRED SELF Confirmed By:Ildefonso Griffin
[2021-04-12 07:12] LABS: Estimated Average Glucose 171 mg/dl; Hemoglobin A1C 7.6 % (4.5-5.6)
[2021-04-12] MEDS ORDERED: ALBUTEROL HFA 8 GM INHALER INH PRN (08:04)
[2021-04-12] MEDS: HEPARIN SOD 5,000 UNIT/0.5 ML VIAL SQ SCH ×2 (08:19→20:51)
[2021-04-12] MEDS: guaiFENesin 600 MG TABCR PO SCH ×2 (08:19→20:47)
[2021-04-12] MEDS: TAMSULOSIN HCL 0.4 MG CAP PO SCH (08:19)
[2021-04-12] MEDS: MULTIVITAMIN TAB PO SCH (08:19)
[2021-04-12] MEDS: VITAMIN B COMPLEX TAB PO SCH (08:19)
[2021-04-12] MEDS: ASPIRIN 81 MG ECTAB PO SCH (08:20)
[2021-04-12] MEDS: dexAMETHasone 6 MG in SYRINGE 0 ML IV SCH (08:24)
[2021-04-12] MEDS ORDERED: INSULIN HUMAN NPH SC SCH ×2 (09:00→16:30)
--- NOTE | 2021-04-12 09:29 | Pharmacy Report ---
Pharmacy Glycemic Short Note 2 - Date of Service April 12, 2021 - Glycemic Short BSG Results (Last 24 hours): 04/11/21 04/11/21 04/11/21 12:23 14:22 20:53 Glucose 196 H POC Glucose 113 H 253 H 04/12/21 04/12/21 04/12/21 00:08 03:40 07:56 Glucose POC Glucose 177 H 109 H 83 OUTPATIENT ANTIDIABETIC REGIMEN: * Metformin 1000 mg PO BIDM * Relion N 70/30 - 25 units SC AM + 15 units SC PM ASSESSMENT: 04/12 * BSGs in goal range with current insulin orders. * Pt given 35 units of NPH (~0.4 units/kg) to cover steroid induced hyperglycemia secondary to daily dexamethasone. * Will continue this dosing to be given with each daily dose of DXM. Will add outpatient dose of NPH with dinner to cover baseline needs. * Continue NovoLog per scale for high stress/steroids. 04/11 * 80 yo M admitted secondary to Covid pneumonia. Pharmacy has been consulted to assist with inpatient glycemic management. * Admission BSG was 196 mg/dL. Trended down to 113 mg/dL later. He did receive 6 mg of IV dexamethasone in the ED which will be continued upon admission. * Will utilize NPH to help with transition back to home insulin upon discharge. Will give full home dose of NPH now x 1 given patient received Dexamethasone. * Pending BSG this evening, may need another dose of NPH. Defer AM dose of NPH until AM BSG returns. * Will start aggressive Novolog based on weight and stress of three to help manage steroid-induced postprandial hyperglycemia. Utilizing goal range of 110-140 mg/dL. Hold metformin while inpatient. PLAN FOR INPATIENT GLYCEMIC CONTROL: * Hold outpatient oral diabetes medications * Basal insulin * NPH 35 units SQ daily in AM with DXM + 11 units SQ in the PM with dinner * Bolus insulin * NovoLog per scale ACHS or Q6hrs while NPO * Goal Range: Low 110 mg/dL - High 140 mg/dL * Correction Factor: 15 mg/dL/unit * Nutritional / Prandial insulin per carb ratio of 1 unit per 5 grams CHO consumed PLAN FOR DISCHARGE: * A1c = 7.6% on 04/12/21 * This is in goal range for patient based on age/co-morbidities. No changes needed to outpatient regimen
--- NOTE | 2021-04-12 14:31 | Hospitalist Progress Note ---
Date of Service April 12, 2021 Assessment & Plan (1) SARS-CoV-2 positive: Symptoms approx. 1 week in duration. - Continue dexamethasone 6 mg PO daily (End date: 04/20/2021) - No indication for remesivir, plasma, or tocilizumab - Supportive O2 to keep SpO2 > 90%. Presently needing between room air and 2L NC. (2) Type 2 diabetes mellitus: A1c of 7.6% this admission. - Hold metformin - Glycemic pharmacy consulted - Treating with NPH and sliding scale insulin aspart (3) Dyslipidemia: - Continue statin (4) Pacemaker: In paced rhythm on admission. (5) Elevated blood pressure reading: BP as high as 160/80 in the hospital. - Not on any home meds - Monitor (6) DVT prophylaxis: Heparin 5,000 units SQ Q12h Discussed with daughter today. Admission and Anticipated Discharge Date Admission Date: April 11, 2021 Subjective Feels well. Minimal cough. Reports no fevers/chills, chest pain, shortness of breath, abdominal pain, nausea, or vomiting. Physical Exam Constitutional: WD/WN, vitals as above Eyes: EOM intact bilaterally; no conjunctival abnormality ENMT: external ear and nose normal, oropharynx normal Neck: trachea midline, no thyromegaly normal visual inspection Respiratory: normal respiratory effort, lungs clear to auscultation no respiratory distress Cardiovascular: RRR, no murmur, no edema Gastrointestinal (Abdomen): Inspection/Auscultation: abdomen normal to inspection; abdomen not distended Musculoskeletal: no cyanosis or clubbing, extremities motor strength 5/5 Skin: no rashes, warm and dry Neurologic: moves all extremities and awake Psychiatric: Orientation: alert, oriented to person and cooperative Results & Data Results & Data ([facility]) Vital Signs (Past 12 Hours) Vital Signs Temp Pulse Pulse Resp BP Pulse Ox 04/12/21 11:20 36.8 C 85 18 158/83 H 93 04/12/21 08:30 78 04/12/21 07:48 83 18 96 04/12/21 07:26 37.1 C 77 18 146/78 H 93 PG Care Time/CCT Total # of Minutes Spent Total Time Spent with Patient: Total time spent is greater than 50% in coordination of care (as documented) at patient's floor/unit and/or counseling patient: Coding Level of Care Code 42430 Subseq Hosp Care Lvl 2 Diagnoses SARS-CoV-2 positive U07.1 Type 2 diabetes mellitus E11.9 Dyslipidemia E78.5 Pacemaker Z95.0 Elevated blood pressure reading R03.0 DVT prophylaxis Z29.9
[2021-04-12] MEDS: ACETAMINOPHEN 325 MG TAB PO PRN (16:42)
[2021-04-12] MEDS: INSULIN HUMAN NPH SC SCH (17:00)
[2021-04-12] MEDS: CHOLECALCIFEROL 1,000 UNITS 25 MCG TAB PO SCH (20:46)
[2021-04-12] MEDS: DOCUSATE SODIUM 100 MG CAP PO SCH (20:46)
[2021-04-12] MEDS: ATORVASTATIN 40 MG TAB PO SCH (20:47)
[2021-04-12] MEDS: FERROUS SULFATE 325 MG TAB PO SCH (20:47)
[2021-04-12] MEDS: ADVANCED PROBIOTIC 1250 MG CAPSULE PO SCH (20:47)
[2021-04-13] MEDS ORDERED: diphenhydrAMINE 50 MG/ML VIAL IV STA (01:40)
[2021-04-13] MEDS: D5W AND NSS 1,000 ML IV SCH ×2 (02:02→14:40)
[2021-04-13 03:07] LABS: Hematocrit (blood only) 43.4 % (42-52); Hemoglobin 14.8 g/dL (14.0-18.0); Mean Corpuscular Hgb Conc 34.1 g/dL (32-36); Mean Platelet Volume 10.7 fL (7.4-10.4); Platelet Count 182 K/uL (130-400); RDW Coefficient of Variation 14.9 % (11.5-14.5); RDW Standard Deviation 48.3 fL (36.4-46.3); Red Blood Count 4.93 M/uL (4.7-6.1); White Blood Count 6.22 K/uL (4.8-10.8)
[2021-04-13 03:26] LABS: BUN Creatinine Ratio 21.6 (10-20); Calcium 8.5 mg/dl (8.5-10.1); Creatinine Clr Calc Pharmacy 91.5 ml/min; Est GFR (African American) 99.3 ml/min; Est GFR (Non-African American) 85.7 ml/min; Magnesium 2.1 mg/dl (1.8-2.4); Potassium 4.1 mmol/L (3.5-5.1)
--- NOTE | 2021-04-13 05:48 | Communication Note ---
Date of Service: April 13, 2021 Called to patient bedside by nursing with concerns of abnormal behavior. hours prior patient was oriented to self and able to follow commands and somewhat co nversive. At bedside he turns to the sound of his name but is unable to speak. Bottom lip is quivering which is new per nursing. No visible asymmetry of facial features. Patient repeatedly rubbing shins of legs together, easily distracted and not making eye contact. Able to weakly squeeze my fingers after multiple instructions, R>L. Satting 98 on 3L NC. Unable to breath deeply enough to appreciate proper lung exam. not working hard to breathe. Stat head CT ordered for evaluation of stroke/intracranial bleed. Stat labs: CBC, PT/INR, ammonia, ABG, CMP.
[2021-04-13] MEDS ORDERED: PROMETHAZINE HCL 6.25 MG in SODIUM CHLORIDE 0.9% 50 ML IV STA (06:18)
[2021-04-13 06:56] LABS: Base Excess ABG 1.4 mEq/L (-9-1.8); HCO3 ABG 25 mmol/L (19-24); PCO2 ABG 35 mmHg (35-46); PO2 ABG 74 mmHg (80-95); pH ABG 7.47 (7.35-7.45)
[2021-04-13 06:59] LABS: Basophils # (auto) 0.01 K/uL (0-0.2); Basophils % (auto) 0.2 %; Hemoglobin 14.7 g/dL (14.0-18.0); Immature Granulocytes # (auto) 0.01 K/uL (0.00-0.02); Immature Granulocytes % (auto) 0.2 %; Lymphocytes # (auto) 0.85 K/uL (1.2-3.4); Lymphocytes % (auto) 14.3 %; Mean Corpuscular Hemoglobin 29.7 pg (25-34); Mean Corpuscular Volume 86.9 fL (80-100); Mean Platelet Volume 10.6 fL (7.4-10.4); Monocytes # (auto) 0.57 K/uL (0.11-0.59); Monocytes % (auto) 9.6 %; Neutrophils # (auto) 4.52 K/uL (1.4-6.5); Neutrophils % (auto) 75.7 %; Platelet Count 176 K/uL (130-400); RDW Standard Deviation 47.6 fL (36.4-46.3); Red Blood Count 4.95 M/uL (4.7-6.1); White Blood Count 5.96 K/uL (4.8-10.8)
[2021-04-13 07:03] LABS: Mean Corpuscular Hgb Conc 34.2 g/dL (32-36)
[2021-04-13 07:15] LABS: Prothrombin Time 10.4 Seconds (9.0-12.0)
[2021-04-13 07:19] LABS: Albumin Level 3.4 gm/dl (3.4-5.0); BUN Creatinine Ratio 22.2 (10-20); Calcium 8.7 mg/dl (8.5-10.1); Creatinine Clr Calc Pharmacy 96.5 ml/min; Est GFR (African American) 101.5 ml/min; Est GFR (Non-African American) 87.6 ml/min; Potassium 3.5 mmol/L (3.5-5.1)
[2021-04-13 07:22] LABS: Albumin Globulin Ratio 0.8 (0.9-2); Bilirubin,Total 0.3 mg/dl (0.2-1); Globulin 4.5 gm/dl (2.5-4.0); Total Protein 7.9 gm/dl (6.4-8.2)
[2021-04-13 07:42] LABS: Allen Test Pos (Pos)
[2021-04-13] MEDS: ACETAMINOPHEN 325 MG TAB PO PRN (07:44)
[2021-04-13] MEDS: dexAMETHasone 6 MG in SYRINGE 0 ML IV SCH (07:45)
--- NOTE | 2021-04-13 07:51 | CT Scan Report ---
CT head/brain wo con CLINICAL HISTORY: acute mental status change COMPARISON STUDY: 04/11/2021 TECHNIQUE: Axial CT of the brain is performed from the vertex to the skull base. IV contrast was not administered for this examination. A dose lowering technique was utilized adhering to the principles of ALARA. CT DOSE: 4530.93 mGy.cm FINDINGS: No intra or extra-axial mass lesions are visualized. There is no CT evidence of acute cortical infarc tion. There is no evidence of midline shift. There is no acute hemorrhage. No calvarial fractures ar e visualized. There are moderately extensive white matter hypodensities likely on a small vessel basis. There is no evidence of pathologic ventricular dilatation. There is no evidence of acute sinusitis IMPRESSION: 1. Motion degraded study 2. No acute intracranial findings. ACT 112: Negative or not required by law. Electronically signed by: Stevan Hackett M.D. 04/13/2021 7:50 AM
[2021-04-13] MEDS ORDERED: ACETAMINOPHEN 1,000 MG/100 ML VIAL IV STA (08:07)
[2021-04-13 08:26] LABS: Appearance Urine Clear (Clear); Bacteria Urine Automated Negative (Negative); Bilirubin Urine Negative (Negative); Blood Urine 2+ (Negative); Color Urine Yellow; Glucose Urine UA Negative (Negative); Ketones Urine Negative (Negative); Leukocyte Esterase Urine Negative (Negative); Nitrite Urine Negative (Negative); Protein Urine 1+ (Negative); Specific Gravity Urine 1.018 (1.000-1.030); Urobilinogen Urine Negative (Negative)
[2021-04-13] MEDS ORDERED: INSULIN HUMAN NPH SC SCH (09:00)
[2021-04-13] MEDS: INSULIN ASPART 100 UNITS/ML 3 ML PEN SC SCH ×4 (09:13→21:30)
[2021-04-13] MEDS: HEPARIN SOD 5,000 UNIT/0.5 ML VIAL SQ SCH ×2 (09:19→21:42)
--- NOTE | 2021-04-13 09:29 | Pharmacy Report ---
Pharmacy Glycemic Short Note 2 - Date of Service April 13, 2021 - Glycemic Short BSG Results (Last 24 hours): 04/12/21 04/12/21 04/12/21 11:25 16:41 16:43 Glucose POC Glucose 77 62 L* 64 L* 04/12/21 04/12/21 04/13/21 17:07 20:48 01:27 Glucose POC Glucose 78 80 49 L* 04/13/21 04/13/21 04/13/21 01:29 01:53 01:54 Glucose POC Glucose 61 L* 67 L* 56 L* 04/13/21 04/13/21 04/13/21 02:54 02:58 05:04 Glucose 109 H POC Glucose 78 85 04/13/21 04/13/21 04/13/21 05:20 06:47 07:20 Glucose 83 POC Glucose 91 75 OUTPATIENT ANTIDIABETIC REGIMEN: * Metformin 1000 mg PO BIDM * Relion N 70/30 - 25 units SC AM + 15 units SC PM ASSESSMENT: 04/13 * Pt has received 39 units of insulin over the past 24hrs * 35 units (0.37 units/kg) of basal with NPH for steroid induced hyperglycemia with DXM * 4 units of bolus with NovoLog * BSGs 563-40-58-80-49 mg/dl * Pt with LOW BSG prior to dinner and again this morning. LOW BSG d/t NPH with significantly decreased PO intake. * w/o today for possible stroke - d/w RN- pt is NOT eating * Will HOLD all insulin this morning and re-evaluate at lunchtime. Will resume insulin at decreased dosing when BSG >140 04/12 * BSGs in goal range with current insulin orders. * Pt given 35 units of NPH (~0.4 units/kg) to cover steroid induced hyperglycemia secondary to daily dexamethasone. * Will continue this dosing to be given with each daily dose of DXM. Will add outpatient dose of NPH with dinner to cover baseline needs. * Continue NovoLog per scale for high stress/steroids. 04/11 * 80 yo M admitted secondary to Covid pneumonia. Pharmacy has been consulted to assist with inpatient glycemic management. * Admission BSG was 196 mg/dL. Trended down to 113 mg/dL later. He did receive 6 mg of IV dexamethasone in the ED which will be continued upon admission. * Will utilize NPH to help with transition back to home insulin upon discharge. Will give full home dose of NPH now x 1 given patient received Dexamethasone. * Pending BSG this evening, may need another dose of NPH. Defer AM dose of NPH until AM BSG returns. * Will start aggressive Novolog based on weight and stress of three to help manage steroid-induced postprandial hyperglycemia. Utilizing goal range of 110-140 mg/dL. Hold metformin while inpatient. PLAN FOR INPATIENT GLYCEMIC CONTROL: * Hold outpatient oral diabetes medications * Basal insulin * HOLD this AM. * Re-evaluate at lunchtime. Will resume basal insulin at lunchtime if BSG >140 * Bolus insulin: no change * NovoLog per scale ACHS or Q6hrs while NPO * Goal Range: Low 110 mg/dL - High 140 mg/dL * Correction Factor: 15 mg/dL/unit * Nutritional / Prandial insulin per carb ratio of 1 unit per 5 grams CHO consumed PLAN FOR DISCHARGE: * A1c = 7.6% on 04/12/21 * This is in goal range for patient based on age/co-morbidities. No changes needed to outpatient regimen
[2021-04-13] MEDS: ASPIRIN 81 MG ECTAB PO SCH (12:05)
[2021-04-13] MEDS: VITAMIN B COMPLEX TAB PO SCH (12:06)
[2021-04-13] MEDS: guaiFENesin 600 MG TABCR PO SCH ×2 (12:06→21:41)
[2021-04-13] MEDS: MULTIVITAMIN TAB PO SCH (12:06)
--- NOTE | 2021-04-13 14:31 | Hospitalist Progress Note ---
Date of Service April 13, 2021 Assessment & Plan (1) SARS-CoV-2 positive: Symptoms approx. 1 week in duration. - Continue dexamethasone 6 mg PO daily (End date: 04/20/2021) - No indication for remesivir, plasma, or tocilizumab - Supportive O2 to keep SpO2 > 90%. Presently back to room air, but confusion is more pronounced. Unable to tell me location or time. Improved in the afternoon. (2) Type 2 diabetes mellitus: A1c of 7.6% this admission. - Hold metformin - Glycemic pharmacy consulted - Treating with NPH and sliding scale insulin aspart -> Running on low side due to poor PO intake. Skipping a dose of NPH. (3) Dyslipidemia: - Continue statin (4) Pacemaker: In paced rhythm on admission. (5) Elevated blood pressure reading: BP as high as 160/80 in the hospital. Lower today at 110/65. - Not on any home meds - Monitor (6) DVT prophylaxis: Heparin 5,000 units SQ Q12h Discussed with daughter today. Admission and Anticipated Discharge Date Admission Date: April 11, 2021 Subjective Feels well. Minimal cough. Reports no fevers/chills, chest pain, shortness of breath, abdominal pain, nausea, or vomiting. Physical Exam Constitutional: WD/WN, vitals as above Eyes: EOM intact bilaterally; no conjunctival abnormality ENMT: external ear and nose normal, oropharynx normal Neck: trachea midline, no thyromegaly normal visual inspection Respiratory: normal respiratory effort, lungs clear to auscultation no respiratory distress Cardiovascular: RRR, no murmur, no edema Gastrointestinal (Abdomen): Inspection/Auscultation: abdomen normal to inspection; abdomen not distended Musculoskeletal: no cyanosis or clubbing, extremities motor strength 5/5 Skin: no rashes, warm and dry Neurologic: moves all extremities and awake Psychiatric: Orientation: alert, oriented to person and cooperative; + not oriented to place and + not oriented to time Results & Data Results & Data ([facility]) Vital Signs (Past 12 Hours) Vital Signs Temp Pulse Pulse Resp BP Pulse Ox 04/13/21 11:16 36.9 C 82 18 130/75 93 04/13/21 07:45 78 04/13/21 06:54 38.7 C H 81 18 161/85 H 94 04/13/21 05:16 36.6 C 88 20 166/93 H 93 PG Care Time/CCT Total # of Minutes Spent Total Time Spent with Patient: Total time spent is greater than 50% in coordination of care (as documented) at patient's floor/unit and/or counseling patient: Coding Level of Care Code 23563 Subseq Hosp Care Lvl 2 Diagnoses SARS-CoV-2 positive U07.1 Type 2 diabetes mellitus E11.9 Dyslipidemia E78.5 Pacemaker Z95.0 Elevated blood pressure reading R03.0 DVT prophylaxis Z29.9
[2021-04-13] MEDS: INSULIN HUMAN NPH SC SCH (17:31)
[2021-04-13] MEDS: ADVANCED PROBIOTIC 1250 MG CAPSULE PO SCH (21:41)
[2021-04-13] MEDS: DOCUSATE SODIUM 100 MG CAP PO SCH (21:41)
[2021-04-13] MEDS: ATORVASTATIN 40 MG TAB PO SCH (21:41)
[2021-04-13] MEDS: CHOLECALCIFEROL 1,000 UNITS 25 MCG TAB PO SCH (21:41)
[2021-04-13] MEDS: FERROUS SULFATE 325 MG TAB PO SCH (21:42)
[2021-04-14] MEDS ORDERED: OLANZapine ZYDIS 5 MG ORALLY DIS. TAB PO ONE (00:07)
[2021-04-14] MEDS: ACETAMINOPHEN 325 MG TAB PO PRN (02:10)
[2021-04-14] MEDS ORDERED: MELATONIN 3 MG TAB PO PRN (02:13)
[2021-04-14] MEDS: D5W AND NSS 1,000 ML IV SCH (02:24)
[2021-04-14 07:59] LABS: Hematocrit (blood only) 38.4 % (42-52); Hemoglobin 13.2 g/dL (14.0-18.0); Mean Corpuscular Hemoglobin 29.3 pg (25-34); Mean Corpuscular Hgb Conc 34.4 g/dL (32-36); Mean Corpuscular Volume 85.1 fL (80-100); Platelet Count 166 K/uL (130-400); RDW Coefficient of Variation 14.9 % (11.5-14.5); RDW Standard Deviation 46.4 fL (36.4-46.3); Red Blood Count 4.51 M/uL (4.7-6.1); White Blood Count 5.84 K/uL (4.8-10.8)
[2021-04-14] MEDS: dexAMETHasone 6 MG in SYRINGE 0 ML IV SCH (08:18)
[2021-04-14] MEDS: VITAMIN B COMPLEX TAB PO SCH (08:19)
[2021-04-14] MEDS: MULTIVITAMIN TAB PO SCH (08:19)
[2021-04-14] MEDS: ASPIRIN 81 MG ECTAB PO SCH (08:19)
[2021-04-14] MEDS: TAMSULOSIN HCL 0.4 MG CAP PO SCH (08:19)
[2021-04-14] MEDS: HEPARIN SOD 5,000 UNIT/0.5 ML VIAL SQ SCH (08:19)
[2021-04-14] MEDS: guaiFENesin 600 MG TABCR PO SCH (08:20)
[2021-04-14] MEDS: INSULIN ASPART 100 UNITS/ML 3 ML PEN SC SCH (08:22)
[2021-04-14 08:32] LABS: BUN Creatinine Ratio 25.5 (10-20); Calcium 8.4 mg/dl (8.5-10.1); Creatinine Clr Calc Pharmacy 105.1 ml/min; Est GFR (African American) 105.2 ml/min; Est GFR (Non-African American) 90.8 ml/min; Magnesium 1.8 mg/dl (1.8-2.4); Potassium 3.5 mmol/L (3.5-5.1)
--- NOTE | 2021-04-14 08:40 | Pharmacy Report ---
Pharmacy Glycemic Short Note 2 - Date of Service April 14, 2021 - Glycemic Short BSG Results (Last 24 hours): 04/13/21 04/13/21 04/13/21 11:13 16:41 20:09 Glucose POC Glucose 95 209 H 204 H 04/14/21 04/14/21 07:19 07:47 Glucose 110 H POC Glucose 96 OUTPATIENT ANTIDIABETIC REGIMEN: * Metformin 1000 mg PO BIDM * Relion N 70/30 - 25 units SC AM + 15 units SC PM * HbA1c: 7.6% (04/12/21) ASSESSMENT: 04/14 * Received 18 units of insulin yesterday (10 units of NPH and 8 units of correctional Novolog) * Significantly decreased PO intake yesterday * BSGs of 49, 75, 95, 209, and 204 mg/dL yesterday * Upward trend likely due to NPH being held in light of hypoglycemia in AM * Will restart much lower NPH dose than previously used (i.e 35 units) to be given with IV dexamethasone 04/13 * Pt has received 39 units of insulin over the past 24hrs * 35 units (0.37 units/kg) of basal with NPH for steroid induced hyperglycemia with DXM * 4 units of bolus with NovoLog * BSGs 115-28-87-80-49 mg/dl * Pt with LOW BSG prior to dinner and again this morning. LOW BSG d/t NPH with significantly decreased PO intake. * w/o today for possible stroke - d/w RN- pt is NOT eating * Will HOLD all insulin this morning and re-evaluate at lunchtime. Will resume insulin at decreased dosing when BSG >140 04/12 * BSGs in goal range with current insulin orders. * Pt given 35 units of NPH (~0.4 units/kg) to cover steroid induced hyperglycemia secondary to daily dexamethasone. * Will continue this dosing to be given with each daily dose of DXM. Will add outpatient dose of NPH with dinner to cover baseline needs. * Continue NovoLog per scale for high stress/steroids. 04/11 * 80 yo M admitted secondary to Covid pneumonia. Pharmacy has been consulted to assist with inpatient glycemic management. * Admission BSG was 196 mg/dL. Trended down to 113 mg/dL later. He did receive 6 mg of IV dexamethasone in the ED which will be continued upon admission. * Will utilize NPH to help with transition back to home insulin upon discharge. Will give full home dose of NPH now x 1 given patient received Dexamethasone. * Pending BSG this evening, may need another dose of NPH. Defer AM dose of NPH until AM BSG returns. * Will start aggressive Novolog based on weight and stress of three to help manage steroid-induced postprandial hyperglycemia. Utilizing goal range of 110-140 mg/dL. Hold metformin while inpatient. PLAN FOR INPATIENT GLYCEMIC CONTROL: * Hold outpatient oral diabetes medications * Basal insulin * NPH 15 units SC daily with IV dexamethasone * NPH w/ dinner 0-10 units SC (see EHR for details) * Bolus insulin: no change * NovoLog per scale ACHS or Q6hrs while NPO * Goal Range: Low 110 mg/dL - High 140 mg/dL * Correction Factor: 20 mg/dL/unit * Nutritional / Prandial insulin per carb ratio of 1 unit per 7 grams CHO consumed PLAN FOR DISCHARGE: * A1c = 7.6% on 04/12/21 * This is in goal range for patient based on age/co-morbidities, but will need to reassess PO intake at time of discharge to assess appropriateness of current regimen. Anticipate needing to decrease insulin doses at time of discharge. Will continue to follow inpatient insulin needs.
[2021-04-14] MEDS ORDERED: INSULIN HUMAN NPH SC SCH (09:00)
--- NOTE | 2021-04-14 17:19 | Discharge Summary ---
Date of Service April 14, 2021 Admission HPI Per Admitting Provider Mr. Quiroz is an 80 year old male with a history of Insulin-Requiring Type 2 Diabetes Mellitus, Dyslipidemia, Prior CVA, and a Permanent Dual Chamber Pacemaker who presents today with illness over the past 5 days. Patient currently has a coronavirus outbreak in his family, and they beginning on Wednesday, he began to feel poorly, lethargic, with some mild achiness. As the days progressed, he seems to get periodically confused, and is feeling poorly in general. Over the past couple of days he has had fevers and chills. He has had a mild but nonproductive cough. He denies any shortness of breath at this time. Patient denies any dyspnea on exertion, chest pain, chest heaviness, chest tightness, or chest pressure. He denies any sputum production or hemoptysis. His appetite is normal. He has not had any vomiting or diarrhea. And denies any headache or stiff neck. Because of these symptoms, patient's daughter brought him in for further evaluation. He has tested positive for SARS-CoV-2. While in the emergency room he became transiently confused and his O2 saturation dropped down to 90%. CT scan of the head shows no acute processes. Chest x-ray does not show any infiltrates. Principal Diagnosis Covid-19 pneumonia Discharge Exam Constitutional WD/WN, vitals as above Eyes EOM intact bilaterally; no conjunctival abnormality ENMT external ear and nose normal, oropharynx normal Neck trachea midline, no thyromegaly normal visual inspection Respiratory normal respiratory effort, lungs clear to auscultation no respiratory distress Cardiovascular RRR, no murmur, no edema Gastrointestinal (Abdomen) Inspection/Auscultation: abdomen normal to inspection; abdomen not distended Musculoskeletal no cyanosis or clubbing, extremities motor strength 5/5 Skin no rashes, warm and dry Neurologic moves all extremities and awake Psychiatric Orientation: alert, oriented to person and cooperative; + not oriented to place and + not oriented to time Discharge Data Allergies Allergy/AdvReac Type Severity Reaction Status Date / Time No Known Allergies Allergy Unverified 04/11/21 14:52 Consultations 04/11/21 14:38 ED Decision to Admit Stat Ordered Studies 04/11/21 14:35 CT head/brain wo con Stat 04/13/21 05:40 CT head/brain wo con Urgent Hospital Course (1) SARS-CoV-2 positive: Symptoms approx. 1 week in duration. - Continue dexamethasone 6 mg PO daily (End date: 04/20/2021) - No indication for remesivir, plasma, or tocilizumab - Supportive O2 to keep SpO2 > 90%. Presently back to room air, but confusion is more pronounced. Improved by discharge. Discharged with remaining dexamethasone course. (2) Type 2 diabetes mellitus: A1c of 7.6% this admission. - Hold metformin - Glycemic pharmacy consulted - Treating with NPH and sliding scale insulin aspart -> Increased dose while on dexamethasone. Discussed with the daughter to return to 23 units in the morning after done with steroids. (3) Dyslipidemia: - Continue statin (4) Pacemaker: In paced rhythm on admission. He varied between paced and normal sinus. - Had some "overdriving" events on 04/14. Discussed with his home acoustic engineer as well as in-hospital EP. No symptoms from this. Will see Dr. Yeager next week and have device interrogation sent to him when he gets home. (5) Elevated blood pressure reading: BP as high as 160/80 in the hospital. Lower today at 110/65. - Not on any home meds - Monitor (6) DVT prophylaxis: Heparin 5,000 units SQ Q12h Total Time Total Time Spent Total Time Spent (In Minutes): 35 Discharge Plan Discharge Items Patient Disposition: Home - Self-Care Reason For Visit: COVID, HYPOXIA Discharge Diagnosis: Covid-19 pneumonia Activity: Resume your previous activity Non-emergency contact: Primary Care Provider Call non-emergency contact if: your symptoms worsen Follow-up/Referrals: Alexander Yeager, [Physician] - (After your 1 week period of isolation, please see Dr. Perez for a check of your pacemaker.) Melany Olson MD [Primary Care Provider] - (PLEASE CONTACT YOUR PRIMARY CARE PROVIDER TO SET UP A FOLLOW-UP DISCHARGE APPOINTMENT WITHIN 7-10 DAYS.) Diet: Carb Consistent or DM2 Addtl Attending Provider Instructions: Mr. Quiroz, You were admitted with Covid-19 pneumonia and had been feeling bad for about a week before coming to the hospital. You needed oxygen for a day or so, and now are doing better. We are sending 6 days of steroids to your pharmacy to finish your treatment. While you are are steroids, please use 30 units of 70/30 insulin in the morning instead of your usual 23 units. Once you are done with the steroids, you can go back to your usual 23 units in the morning. In the evening, continue your usual 10 units whether you are on or off the steroids as the evening does will not change. Your pacemaker had some fast runs while you were here. Once you are done with isolation, please see Dr. Yeager in the office to have a check-up of your pacemaker. Pending Studies at Discharge: No Stand-Alone Forms: My [facility], Smoking Cessation Medications and DC Order Prescriptions: New dexamethasone 6 mg tablet 6 mg PO DAILY Qty: 6 RF: 0 Continued aspirin [Aspirin Low Dose] 81 mg Tablet,Delayed Release (Dr/Ec) 81 mg PO QAM RF: 0 tamsulosin [Flomax] 0.4 mg Capsule 0.4 mg PO Q2D RF: 0 metformin 1,000 mg Tablet 1,000 mg PO BID RF: 0 vitamin B complex Capsule 1 cap PO QAM RF: 0 atorvastatin [Lipitor] 40 mg Tablet 40 mg PO QPM RF: 0 Novolin 70/30 U-100 Insulin 100 unit/mL (70-30) Suspension 10 units subcut QPM RF: 0 docusate sodium 100 mg Capsule 100 mg PO QPM RF: 0 multivitamin Tablet 1 tab PO QAM RF: 0 ferrous sulfate [iron] 325 mg (65 mg iron) Tablet 325 mg PO HS RF: 0 cholecalciferol (vitamin D3) [Vitamin D3] 25 mcg (1,000 unit) Capsule 25 mcg PO HS RF: 0 Probiotic 3 billion cell Capsule 0 mmu cells PO HS RF: 0 Changed Novolin 70/30 U-100 Insulin 100 unit/mL (70-30) Suspension 30 unit subcut QAM Qty: 0 RF: 0 Discharge Orders: Discharge Order (Routine); Ordered 04/14/21 Ordered By: Qamar Garcia/Other Patient Handouts: High Blood Sugar (Hyperglycemia), Hypoglycemia (Low Blood Sugar), Managing Type 2 Diabetes, Managing Diabetes: The A1C Test Admission Data Admit Date/Time: 04/14/21 09:15 Attending Provider: Qamar Palomo Admit Provider: Dane Schreiber Primary Care Provider: Melany Olson Other Interventions: Discharge Summary Assessment (RN) Last Done: 04/14/21 13:26 Coding Level of Care Code D/C Day Management >30 mins Diagnoses SARS-CoV-2 positive U07.1 Type 2 diabetes mellitus E11.9 Dyslipidemia E78.5 Pacemaker Z95.0 Elevated blood pressure reading R03.0 DVT prophylaxis Z29.9
== END 2021-04-14 13:50 | disposition home or self-care (01) ==
LOC: 2W 11:32 → ED 11:32 → SUATTDRO 15:46 → 2W 17:22

== ENCOUNTER 2021-04-15 14:50 | Inpatient (IN) ==
[2021-04-15] MEDS ORDERED: SODIUM CHLORIDE 0.9% 500 ML IV ONE (15:30)
--- NOTE | 2021-04-15 15:39 | Emergency Department Note ---
Impression & Plan COVID-19, Weakness generalized, Metabolic encephalopathy, Hypomagnesemia ED Provider Note NAME: BRYANT COLLAZO AGE: 80 SEX: M ARRIVES VIA: Ambulance INFORMANT: Patient, Daughter ED PROVIDER(S): Maurice Patel MD CHIEF COMPLAINT: Weakness, confusion PLAN: Disposition: Admit MEDICAL DECISION MAKING: The patient is a pleasant 80-year-old gentleman with a past medical history of type 2 diabetes on insulin, hyperlipidemia, history of CVA, permanent dual- chamber pacemaker, recent [facility] admission for COVID-19 from 04/11-04/14 with associated symptoms of generalized weakness, intermittent confusion and mild hypoxia to 90% on room air who presents to the emergency department from home after family had concern for worsening generalized weakness and confusion where he has difficulty speaking words and will have staring spells all evolving over the past several days. The patient's daughter further reports that he easily becomes dizzy and has change in responsiveness when standing up where they feel he gets low blood pressure. On arrival the patient is fatigued appearing but no acute distress, afebrile with stable vital signs. He appears clinically dry. He is mildly confused with word finding difficulty unable to tell me he was in the hospital until prompted. He is unable to describe any of his symptoms or complaints. He moves all extre mities equally without focal neurologic deficits. He exhibits generalized weakness with 4/5 strength x4 extremities. EKG without overt acute ischemia. Chest x-ray with interstitial thickening and bibasilar opacities in setting of known COVID-19. WBC and platelets within normal limits. H/H similar to prior values. Chemistry without metabolic acidosis. Magnesium 1.6 with repletion provided. AST 59, improved from prior. Troponin 0.024, within normal limits. CT of the head and CT of the head and neck performed negative for ischemia, ICH or severe narrowing occlusion of large vessels. I did review the patient's evaluation with the patient's daughter over the phone who feels he is too weak to go home at this time and feels he needs to be admitted for 24 hours to help him improve. I did explain the risks that admission may further worsen any delirium associated with his illness. She understood this but still feels he needs admitted at this time. Case was discussed [place], [facility] [place], who will evaluate the patient for admission. Triage Nursing notes reviewed and agree them. Prior medical records reviewed Vital Signs: reviewed and remarkable for no significant abnormalities Differential diagnosis: Infection, dehydration, metabolic abnormality, hypo/hyperglycemia, electrolyte disturbance, anemia, hypoxia, cardiac sources, intracerebral event, toxicologic, neurologic, as well as other pathologies. ER treatment provided: See below. Diagnostics interpreted by me: ECG: Normal sinus rhythm, 83 bpm, incomplete right bundle branch block, left anterior fascicular block, no ectopy, no overt ST elevation or depression, QTC 446, QRS 112. Cardiac Monitoring: An order for continuous cardiac monitoring was placed and demonstrated Normal sinus rhythm, 83 bpm, no ectopy. Laboratory studies: See below Imaging studies: See below Consultation(s): Case was discussed with Dr. Ryder, [facility] [place], who will evaluate the patient for admission. HPI: The patient is a pleasant 80-year-old gentleman with a past medical history of type 2 diabetes on insulin, hyperlipidemia, history of CVA, permanent dual- chamber pacemaker, recent [facility] admission for COVID-19 from 04/11-04/14 with associated symptoms of generalized weakness, intermittent confusion and mild hypoxia to 90% on room air who presents to the emergency department from home after family had concern for worsening generalized weakness and confusion where he has difficulty speaking words and will have staring spells all evolving over the past several days. The patient's daughter further reports that he easily becomes dizzy and has change in responsiveness when standing up where they feel he gets low blood pressure. ROS: See above HPI for pertinent positives & negatives. A total of 10 systems reviewed and were otherwise negative. PAST MEDICAL HISTORY:See Below PAST SURGICAL HISTORY:See Below FAMILY HISTORY:See Below SOCIAL HISTORY:See Below HOME MEDICATIONS:See Below ALLERGIES:See Below VITALS:See Below PHYSICAL EXAMINATION: GENERAL: Awake, alert, fatigued-appearing, in no distress HENT: Normocephalic, atraumatic. Oropharynx with dry mucous membranes and otherwise unremarkable. EYES: Normal conjunctiva. Sclera non-icteric. NECK: Supple. No nuchal rigidity. FROM. No JVD. RESPIRATORY: Scant intermittent wheeze but is otherwise clear. CARDIAC: Regular rate, normal rhythm. Extremities warm and well perfused. Pulses equal. ABDOMEN: Soft, non-distended. No tenderness to palpation. No rebound or guarding. No masses. RECTAL: Deferred. MUSCULOSKELETAL: Chest examination reveals no tenderness. The back is symmetrical on inspection without obvious abnormality. There is no CVA tenderness to palpation. No joint edema. LOWER EXTREMITIES: Calves are equal size bilaterally and non-tender. No edema. No discoloration. NEURO: Mildly confused with word finding difficulty unable to tell me he was in the hospital until prompted. He is unable to describe any of his symptoms or complaints. He moves all extremities equally without focal neurologic deficits. He exhibits generalized weakness with 4/5 strength x4 extremities. SKIN: No rash or jaundice noted. Maurice Patel MD Past Med/Surg History Medical History COVID-19 Dyslipidemia History of stroke Type 2 diabetes mellitus Surgical History History of permanent cardiac pacemaker placement Family History Other No pertinent family history Social History Smoking Status: Former smoker Tobacco Type: Cigarettes Second Hand Exposure: No; Hx Alcohol Use: No Hx Substance Use: No Preferred Language: Maldivian Communication Ability: Effective Jalousie Installer Required: No Beliefs That Will Affect Care: None Current Living Situation: Family Feels Safe at Home: Yes Assistive Devices: Glasses and Walker Allergies Allergies Allergy/AdvReac Type Severity Reaction Status Date / Time No Known Allergies Allergy Verified 04/15/21 16:59 Home Meds Home Medications Medication Instructions Recorded Confirmed Novolin 70/30 U-100 Insulin 10 units SUBCUT QPM 10/02/18 04/15/21 aspirin [Aspirin Low Dose] 81 mg PO QAM 10/02/18 04/15/21 atorvastatin [Lipitor] 40 mg PO QPM 10/02/18 04/15/21 docusate sodium 100 mg PO QPM 10/02/18 04/15/21 metformin 1,000 mg PO BID 10/02/18 04/15/21 tamsulosin [Flomax] 0.4 mg PO Q2D 10/02/18 04/15/21 vitamin B complex 1 cap PO QAM 10/02/18 04/15/21 Probiotic 0 mmu cells PO HS 04/11/21 04/15/21 cholecalciferol (vitamin D3) 25 mcg PO HS 04/11/21 04/15/21 [Vitamin D3] ferrous sulfate [iron] 325 mg PO HS 04/11/21 04/15/21 multivitamin 1 tab PO QAM 04/11/21 04/15/21 Previous Rx's Medication Instructions Recorded Novolin 70/30 U-100 Insulin 30 unit SUBCUT QAM #0 ml 04/14/21 dexamethasone 6 mg PO DAILY #6 tab 04/14/21 Results & Data (ED) Vital Signs Vital Signs - 24 hr 04/15/21 15:02 04/15/21 15:04 04/15/21 15:16 Temperature 37.2 C Temperature Source Oral Pulse Rate 79 77 74 Pulse Rate [Right Finger] Pulse Rate from SpO2 Sensor 80 80 Pulse Rhythm Regular Pulse Rhythm [Right Finger] Pulse Strength Normal Pulse Strength [Right Finger] Respiratory Rate 18 Respiratory Effort / Characteristics Non-Labored Spontaneous Respiratory Depth Normal Respiratory Pattern Regular Blood Pressure 123/72 123/72 Blood Pressure [Left Arm] Blood Pressure Mean 89 89 Blood Pressure Mean [Left Arm] Blood Pressure Position Sitting Pulse Oximetry 94 92 93 Oxygen Delivery Method Room Air Oxygen Flow Rate Sepsis Recent Fever Within 48 Hours No Sepsis New/Unexplained Change in Mental Status N/A Sepsis Action Taken by Nursing No Action Required 04/15/21 15:30 04/15/21 15:57 04/15/21 15:58 Temperature Temperature Source Pulse Rate 78 85 Pulse Rate [Right Finger] 87 Pulse Rate from SpO2 Sensor 77 86 Pulse Rhythm Pulse Rhythm [Right Finger] Pulse Strength Pulse Strength [Right Finger] Respiratory Rate 22 24 20 Respiratory Effort / Characteristics Respiratory Depth Respiratory Pattern Blood Pressure 143/79 H Blood Pressure [Left Arm] 143/79 H Blood Pressure Mean 100 Blood Pressure Mean [Left Arm] 100 Blood Pressure Position Pulse Oximetry 92 93 92 Oxygen Delivery Method Room Air Oxygen Flow Rate Sepsis Recent Fever Within 48 Hours Sepsis New/Unexplained Change in Mental Status Sepsis Action Taken by Nursing 04/15/21 16:00 04/15/21 16:30 04/15/21 16:31 Temperature Temperature Source Pulse Rate 85 Pulse Rate [Right Finger] Pulse Rate from SpO2 Sensor Pulse Rhythm Pulse Rhythm [Right Finger] Pulse Strength Pulse Strength [Right Finger] Respiratory Rate 24 24 Respiratory Effort / Characteristics Respiratory Depth Respiratory Pattern Blood Pressure 121/76 135/80 Blood Pressure [Left Arm] Blood Pressure Mean 91 98 Blood Pressure Mean [Left Arm] Blood Pressure Position Pulse Oximetry 91 Oxygen Delivery Method Oxygen Flow Rate Sepsis Recent Fever Within 48 Hours Sepsis New/Unexplained Change in Mental Status Sepsis Action Taken by Nursing 04/15/21 17:00 04/15/21 17:01 04/15/21 17:09 Temperature Temperature Source Pulse Rate 88 100 H Pulse Rate [Right Finger] Pulse Rate from SpO2 Sensor Pulse Rhythm Pulse Rhythm [Right Finger] Pulse Strength Pulse Strength [Right Finger] Respiratory Rate 23 16 Respiratory Effort / Characteristics Respiratory Depth Respiratory Pattern Blood Pressure 147/73 H Blood Pressure [Left Arm] Blood Pressure Mean 97 Blood Pressure Mean [Left Arm] Blood Pressure Position Pulse Oximetry Oxygen Delivery Method Room Air Oxygen Flow Rate Sepsis Recent Fever Within 48 Hours Sepsis New/Unexplained Change in Mental Status Sepsis Action Taken by Nursing 04/15/21 17:30 04/15/21 19:31 04/15/21 19:34 Temperature Temperature Source Pulse Rate 83 91 H 89 Pulse Rate [Right Finger] Pulse Rate from SpO2 Sensor 91 H Pulse Rhythm Pulse Rhythm [Right Finger] Pulse Strength Pulse Strength [Right Finger] Respiratory Rate 24 26 H 23 Respiratory Effort / Characteristics Respiratory Depth Respiratory Pattern Blood Pressure 100/76 149/91 H Blood Pressure [Left Arm] Blood Pressure Mean 84 110 Blood Pressure Mean [Left Arm] Blood Pressure Position Pulse Oximetry 89 L Oxygen Delivery Method Oxygen Flow Rate Sepsis Recent Fever Within 48 Hours Sepsis New/Unexplained Change in Mental Status Sepsis Action Taken by Nursing 04/15/21 19:36 04/15/21 20:00 04/15/21 20:01 Temperature 37.4 C Temperature Source Oral Pulse Rate 79 83 Pulse Rate [Right Finger] 86 Pulse Rate from SpO2 Sensor 84 83 Pulse Rhythm Pulse Rhythm [Right Finger] Regular Pulse Strength Pulse Strength [Right Finger] Normal Respiratory Rate 24 32 H 23 Respiratory Effort / Characteristics Non-Labored Labored Respiratory Depth Normal Respiratory Pattern Regular Blood Pressure 174/89 H Blood Pressure [Left Arm] 149/91 H Blood Pressure Mean 117 Blood Pressure Mean [Left Arm] 110 Blood Pressure Position Pulse Oximetry 89 L 97 96 Oxygen Delivery Method Room Air Oxygen Flow Rate 2 Sepsis Recent Fever Within 48 Hours Sepsis New/Unexplained Change in Mental Status Sepsis Action Taken by Nursing 04/15/21 20:30 Temperature Temperature Source Pulse Rate 84 Pulse Rate [Right Finger] Pulse Rate from SpO2 Sensor 84 Pulse Rhythm Pulse Rhythm [Right Finger] Pulse Strength Pulse Strength [Right Finger] Respiratory Rate 25 H Respiratory Effort / Characteristics Respiratory Depth Respiratory Pattern Blood Pressure 175/87 H Blood Pressure [Left Arm] Blood Pressure Mean 116 Blood Pressure Mean [Left Arm] Blood Pressure Position Pulse Oximetry 96 Oxygen Delivery Method Oxygen Flow Rate Sepsis Recent Fever Within 48 Hours Sepsis New/Unexplained Change in Mental Status Sepsis Action Taken by Nursing Laboratory Data Attestation: I reviewed the patient's lab results. Result diagrams: 04/15/21 15:14 04/15/21 15:14 Lab Results 04/15/21 04/15/21 04/15/21 Range/Units 15:14 15:14 16:07 WBC 5.70 (4.8-10.8) K/uL RBC 4.59 L (4.7-6.1) M/uL Hgb 13.3 L (14.0-18.0) g/dL Hct 39.3 L (42-52) % MCV 85.6 (80-100) fL MCH 29.0 (25-34) pg MCHC 33.8 (32-36) g/dL RDW Std Deviation 47.7 H (36.4-46.3) fL RDW Coeff of Jean Marie 15.2 H (11.5-14.5) % Plt Count 137 (130-400) K/uL MPV 10.5 H (7.4-10.4) fL Immature Gran % (Auto) 0.2 % Neut % (Auto) 78.5 % Lymph % (Auto) 11.8 % Ocean % (Auto) 9.3 % Eos % (Auto) 0.0 % Baso % (Auto) 0.2 % Neut # (Auto) 4.48 (1.4-6.5) K/uL Lymph # (Auto) 0.67 L (1.2-3.4) K/uL Ocean # (Auto) 0.53 (0.11-0.59) K/uL Eos # (Auto) 0.00 (0-0.5) K/uL Baso # (Auto) 0.01 (0-0.2) K/uL Immature Gran # (Auto) 0.01 (0.00-0.02) K/uL Sodium 136 (136-145) mmol/L Potassium 3.7 (3.5-5.1) mmol/L Chloride 103 (98-107) mmol/L Carbon Dioxide 24 (21-32) mmol/L Anion Gap 8.0 (3-11) BUN 17 (7-18) mg/dl Creatinine 0.93 (0.6-1.4) mg/dl Est Cr Clr Drug Dosing 73.7 ml/min Est GFR ( Amer) 89.5 ml/min Est GFR (Non-Af Amer) 77.3 ml/min BUN/Creatinine Ratio 18.2 (10-20) Glucose 161 H (70-99) mg/dl Calcium 8.6 (8.5-10.1) mg/dl Phosphorus 2.3 L (2.5-4.9) mg/dl Magnesium 1.6 L (1.8-2.4) mg/dl Total Bilirubin 0.4 (0.2-1) mg/dl Direct Bilirubin 0.2 (0-0.2) mg/dl AST 59 H (15-37) U/L ALT 43 (12-78) U/L Alkaline Phosphatase 77 (45-117) U/L Total Creatine Kinase 371 H (39-308) U/L Troponin I 0.024 (0-0.045) ng/ml Total Protein 6.9 (6.4-8.2) gm/dl Albumin 2.9 L (3.4-5.0) gm/dl Globulin 4.0 (2.5-4.0) gm/dl Albumin/Globulin Ratio 0.7 L (0.9-2) Lipase 75 (73-393) U/L TSH 1.310 (0.300-4.500) uIu/ml COVID-19 Eval Order Covid19 at [facility] SARS-CoV-2 (PCR) (Negative) 04/15/21 Range/Units 16:07 WBC (4.8-10.8) K/uL RBC (4.7-6.1) M/uL Hgb (14.0-18.0) g/dL Hct (42-52) % MCV (80-100) fL MCH (25-34) pg MCHC (32-36) g/dL RDW Std Deviation (36.4-46.3) fL RDW Coeff of Jean Marie (11.5-14.5) % Plt Count (130-400) K/uL MPV (7.4-10.4) fL Immature Gran % (Auto) % Neut % (Auto) % Lymph % (Auto) % Ocean % (Auto) % Eos % (Auto) % Baso % (Auto) % Neut # (Auto) (1.4-6.5) K/uL Lymph # (Auto) (1.2-3.4) K/uL Ocean # (Auto) (0.11-0.59) K/uL Eos # (Auto) (0-0.5) K/uL Baso # (Auto) (0-0.2) K/uL Immature Gran # (Auto) (0.00-0.02) K/uL Sodium (136-145) mmol/L Potassium (3.5-5.1) mmol/L Chloride (98-107) mmol/L Carbon Dioxide (21-32) mmol/L Anion Gap (3-11) BUN (7-18) mg/dl Creatinine (0.6-1.4) mg/dl Est Cr Clr Drug Dosing ml/min Est GFR ( Amer) ml/min Est GFR (Non-Af Amer) ml/min BUN/Creatinine Ratio (10-20) Glucose (70-99) mg/dl Calcium (8.5-10.1) mg/dl Phosphorus (2.5-4.9) mg/dl Magnesium (1.8-2.4) mg/dl Total Bilirubin (0.2-1) mg/dl Direct Bilirubin (0-0.2) mg/dl AST (15-37) U/L ALT (12-78) U/L Alkaline Phosphatase (45-117) U/L Total Creatine Kinase (39-308) U/L Troponin I (0-0.045) ng/ml Total Protein (6.4-8.2) gm/dl Albumin (3.4-5.0) gm/dl Globulin (2.5-4.0) gm/dl Albumin/Globulin Ratio (0.9-2) Lipase (73-393) U/L TSH (0.300-4.500) uIu/ml COVID-19 Eval Order SARS-CoV-2 (PCR) POSITIVE A* (Negative) Administered Medications Atorvastatin Calcium (Atorvastatin 40 Mg Tab) 40 mg PO QPM ADELITA Stop: 05/16/21 00:21 Last Admin: 04/16/21 01:34 Dose: Not Given Documented by: [id number] Benzonatate (Benzonatate 100 Mg Capsule) 100 mg PO TID [facility] Stop: 05/16/21 00:21 Last Admin: 04/16/21 01:35 Dose: Not Given Documented by: [id number] Docusate Sodium (Docusate Sodium 100 Mg Cap) 100 mg PO QPM ADELITA Stop: 05/16/21 00:21 Last Admin: 04/16/21 01:35 Dose: Not Given Documented by: [id number] Ferrous Sulfate (Ferrous Sulfate 325 Mg Tab) 325 mg PO [facility] Stop: 05/16/21 00:21 Last Admin: 04/16/21 01:35 Dose: Not Given Documented by: [id number] Dexamethasone 6 mg/ Syringe 1.5 mls @ 1 mls/min IV DAILY@0900 [facility] Stop: 05/16/21 01:29 Last Admin: 04/16/21 01:30 Dose: 1 mls/min Documented by: [id number] Insulin Aspart (Insulin Aspart 100 Units/Ml 3 Ml Pen) 0 units SC ACHS [facility] [place] Stop: 05/16/21 00:21 Last Admin: 04/16/21 01:30 Dose: Not Given Documented by: [id number] Cosigned by: [id number] Insulin Glargine (Insulin Glargine Solostar 100 Units/Ml 3 Ml Pen) 10 units SC BID [facility] [place] Stop: 05/16/21 00:21 Last Admin: 04/16/21 01:30 Dose: 10 units Documented by: [id number] Cosigned by: [id number] Vitamin D (Cholecalciferol 1,000 Units 25 Mcg Tab) 1,000 units PO [facility] Stop: 05/16/21 00:21 Last Admin: 04/16/21 01:35 Dose: Not Given Documented by: [id number] Discontinued Medications Sodium Chloride (Nss) 500 mls @ 999 mls/hr IV .Q31M ONE Stop: 04/15/21 16:00 Last Infusion: 04/15/21 18:56 Dose: 0 mls/hr Documented by: [id number] Admin: 04/15/21 17:15 Dose: 999 mls/hr Documented by: [id number] Magnesium Sulfate/Dextrose (Magnesium Sulfate / D5w) 1 gm in 100 mls @ 100 mls/hr IV NOW STA Stop: 04/15/21 17:58 Last Infusion: 04/15/21 18:56 Dose: 0 mls/hr Documented by: [id number] Admin: 04/15/21 17:24 Dose: 100 mls/hr Documented by: [id number] Sodium Chloride (Nss 1000ml) 1,000 mls @ 125 mls/hr IV .Q8H ADELITA Stop: 05/15/21 19:59 Last Infusion: 04/16/21 01:13 Dose: 0 mls/hr Documented by: [id number] Admin: 04/15/21 22:00 Dose: 125 mls/hr Documented by: [id number] Magnesium Sulfate/Dextrose (Magnesium Sulfate / D5w) 1 gm in 100 mls @ 50 mls/hr IV ONE ONE Stop: 04/16/21 02:59 Last Admin: 04/16/21 02:41 Dose: 50 mls/hr Documented by: [id number] Potassium Phosphate 6 mmol/ (Sodium Chloride) 102 mls @ 100 mls/hr IV ONE ONE Stop: 04/16/21 02:01 Last Infusion: 04/16/21 02:41 Dose: 0 mls/hr Documented by: [id number] Admin: 04/16/21 01:13 Dose: 100 mls/hr Documented by: [id number] Ioversol (Optiray 350 500ml) 110 ml IV ONCE ONE Stop: 04/15/21 16:24 Last Admin: 04/15/21 16:23 Dose: 1 ml Documented by: [id number] Imaging Data Radiologist's Impression: Chest X-Ray 04/15/21 15:30 XR chest 1V portable CLINICAL HISTORY: Chest pain. COMPARISON STUDY: Chest radiograph April 11, 2021. FINDINGS: A dual-lead left subclavian pacer is in place. There is moderate cardiomegaly. There is a possible trace left pleural effusion. Low lung volumes. There is lower lung interstitial thickening and mild opacities IMPRESSION: 1. Low lung volumes. Lower lung interstitial thickening and mild opacities, greater on the right. The findings could reflect an infectious process or pulmonary edema. 2. Possible trace left pleural effusion. ACT 112: Negative or not required by law. Electronically signed by: Brent Fregoso M.D. 04/15/2021 3:[address] 04/15/21 15:[address] OF THE BRAIN; CT ANGIOGRAM OF THE BRAIN; CT ANGIOGRAM OF THE NECK CLINICAL HISTORY: Change in mental status. Covid. COMPARISON STUDY: CT of the brain dated 04/13/2021. TECHNIQUE: Unenhanced axial CT scan of the brain is performed. Subsequently, following the IV administration of 107 of Optiray 350, CT angiogram of the head and neck was performed from the aortic arch to the vertex. Images are reviewed in the axial, sagittal, and coronal planes. 3-D MIPS images are created and assessed. IV contrast was administered without complication. All measurements were calculated based on NASCET criteria. A dose lowering technique was utilized adhering to the principles of ALARA. 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 Chronic lacunar infarct is noted in the right thalamus. There is no hemorrhage, mass e ffect, or evidence of acute territorial ischemia by CT criteria. There is no evidence of enhancing mass lesion on the angiogram phase images. The ventricles, sulci, and cisterns are prominent secondary to involutional change. Kaur-white matter differentiation is preserved. No extra-axial fluid collection is seen. Thoracic aorta: There is atherosclerotic calcification of the thoracic aorta. Visualized portions of the thoracic aorta are normal in caliber. The aortic arch demonstrates standard 3-vessel anatomy. Right carotid arterial system: The right common carotid artery is widely patent, as are the right internal and external carotid arteries. Atheromatous change is seen throughout with calcified plaque noted in the carotid bulb. Left carotid arterial system: The left common carotid artery is widely patent. Calcified plaque causes less than 50% luminal narrowing at the origin of the left internal carotid artery. The internal and external carotid arteries otherwise widely patent. Atheromatous change is seen throughout. Vertebral arteries: The vertebral arteries are widely patent bilaterally noting a left sided dominance. Subclavian arteries: Widely patent bilaterally. Intracranial vasculature: There is atherosclerotic calcification of the cavernous carotid and vertebral arteries. There is origin of the right posterior cerebral artery. The internal carotid arteries are patent at the skull base, as are the anterior and middle cerebral arteries bilaterally. There is atherosclerotic irregularity within the supraclinoid right internal carotid artery without focal/high-grade stenosis. The vertebrobasilar system and po sterior cerebral arteries are widely patent. The left vertebral artery is dominant. There is no aneurysm, high-grade stenosis, or focal vessel cut off seen throughout the intracranial circulation. Jugular veins: Patent bilaterally. Dural sinuses: Patent. Lung apices: A cardiac pacemaker is noted in the left chest wall. Mild patchy ground glass opacities are noted in the upper lobes. Soft tissues: The visualized pharyngeal soft tissues are normal in appearance noting angiographic phase technique. The oropharyngeal airway appears widely patent. The salivary and thyroid glands are normal in appearance. No cervical lymphadenopathy is seen. Skeletal structures: The skeletal structures are osteopenic The calvarium appears intact. The cervical spine is maintained noting multilevel spondylosis. No lytic or blastic lesion is seen. Orbits: The bony orbits are intact. Orbital contents are normal as visualized. Sinuses and mastoids: There is trace mucosal thickening within the frontal sinuses. The remaining paranasal sinuses are clear. The mastoid air cells are well pneumatized. IMPRESSION: 1. There is no hemorrhage, mass effect, or evidence of acute territorial ischemia by CT criteria. 2. There is no aneurysm, high-grade stenosis, or focal vessel cut off seen throughout the intracranial circulation. 3. There is no evidence of high-grade stenosis of the major arteries in the neck. 4. Mild groundglass opacities in the upper lobes are nonspecific and may correspond to the reported history of Covid pneumonia. Clinical correlation will be required ACT 112: Negative or not required by law. Electronically signed by: Royce Marcum M.D. 04/15/2021 6:28 PM Head CTA 04/15/21 15:[address] OF THE BRAIN; CT ANGIOGRAM OF THE BRAIN; CT ANGIOGRAM OF THE NECK CLINICAL HISTORY: Change in mental status. Covid. COMPARISON STUDY: CT of the brain dated 04/13/2021. TECHNIQUE: Unenhanced axial CT scan of the brain is performed. Subsequently, following the IV administration of 107 of Optiray 350, CT angiogram of the head and neck was performed from the aortic arch to the vertex. Images are reviewed in the axial, sagittal, and coronal planes. 3-D MIPS images are created and assessed. IV contrast was administered without complication. All measurements were calculated based on NASCET criteria. A dose lowering technique was utilized adhering to the principles of ALARA. 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 Chronic lacunar infarct is noted in the right thalamus. There is no hemorrhage, mass eff ect, or evidence of acute territorial ischemia by CT criteria. There is no evidence of enhancing mass lesion on the angiogram phase images. The ventricles, sulci, and cisterns are prominent secondary to involutional change. Kaur-white matter differentiation is preserved. No extra-axial fluid collection is seen. Thoracic aorta: There is atherosclerotic calcification of the thoracic aorta. Visualized portions of the thoracic aorta are normal in caliber. The aortic arch demonstrates standard 3-vessel anatomy. Right carotid arterial system: The right common carotid artery is widely patent, as are the right internal and external carotid arteries. Atheromatous change is seen throughout with calcified plaque noted in the carotid bulb. Left carotid arterial system: The left common carotid artery is widely patent. Calcified plaque causes less than 50% luminal narrowing at the origin of the left internal carotid artery. The internal and external carotid arteries otherwise widely patent. Atheromatous change is seen throughout. Vertebral arteries: The vertebral arteries are widely patent bilaterally noting a left sided dominance. Subclavian arteries: Widely patent bilaterally. Intracranial vasculature: There is atherosclerotic calcification of the cavernous carotid and vertebral arteries. There is origin of the right posterior cerebral artery. The internal carotid arteries are patent at the skull base, as are the anterior and middle cerebral arteries bilaterally. There is atherosclerotic irregularity within the supraclinoid right internal carotid artery without focal/high-grade stenosis. The vertebrobasilar system and post erior cerebral arteries are widely patent. The left vertebral artery is dominant. There is no aneurysm, high-grade stenosis, or focal vessel cut off seen throughout the intracranial circulation. Jugular veins: Patent bilaterally. Dural sinuses: Patent. Lung apices: A cardiac pacemaker is noted in the left chest wall. Mild patchy ground glass opacities are noted in the upper lobes. Soft tissues: The visualized pharyngeal soft tissues are normal in appearance noting angiographic phase technique. The oropharyngeal airway appears widely patent. The salivary and thyroid glands are normal in appearance. No cervical lymphadenopathy is seen. Skeletal structures: The skeletal structures are osteopenic The calvarium appears intact. The cervical spine is maintained noting multilevel spondylosis. No lytic or blastic lesion is seen. Orbits: The bony orbits are intact. Orbital contents are normal as visualized. Sinuses and mastoids: There is trace mucosal thickening within the frontal sinuses. The remaining paranasal sinuses are clear. The mastoid air cells are well pneumatized. IMPRESSION: 1. There is no hemorrhage, mass effect, or evidence of acute territorial ischemia by CT criteria. 2. There is no aneurysm, high-grade stenosis, or focal vessel cut off seen throughout the intracranial circulation. 3. There is no evidence of high-grade stenosis of the major arteries in the neck. 4. Mild groundglass opacities in the upper lobes are nonspecific and may correspond to the reported history of Covid pneumonia. Clinical correlation will be required ACT 112: Negative or not required by law. Electronically signed by: Royce Marcum M.D. 04/15/2021 6:28 PM Neck CTA 04/15/21 15:[address] OF THE BRAIN; CT ANGIOGRAM OF THE BRAIN; CT ANGIOGRAM OF THE NECK CLINICAL HISTORY: Change in mental status. Covid. COMPARISON STUDY: CT of the brain dated 04/13/2021. TECHNIQUE: Unenhanced axial CT scan of the brain is performed. Subsequently, following the IV administration of 107 of Optiray 350, CT angiogram of the head and neck was performed from the aortic arch to the vertex. Images are reviewed in the axial, sagittal, and coronal planes. 3-D MIPS images are created and assessed. IV contrast was administered without complication. All measurements were calculated based on NASCET criteria. A dose lowering technique was utilized adhering to the principles of ALARA. 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 Chronic lacunar infarct is noted in the right thalamus. There is no hemorrhage, mass effect, or evidence of acute territorial ischemia by CT criteria. There is no evidence of enhancing mass lesion on the angiogram phase images. The ventricles, sulci, and cisterns are prominent secondary to involutional change. Kaur-white matter differentiation is preserved. No extra-axial fluid collection is seen. Thoracic aorta: There is atherosclerotic calcification of the thoracic aorta. Visualized portions of the thoracic aorta are normal in caliber. The aortic arch demonstrates standard 3-vessel anatomy. Right carotid arterial system: The right common carotid artery is widely patent, as are the right internal and external carotid arteries. Atheromatous change is seen throughout with calcified plaque noted in the carotid bulb. Left carotid arterial system: The left common carotid artery is widely patent. Calcified plaque causes less than 50% luminal narrowing at the origin of the left internal carotid artery. The internal and external carotid arteries otherwise widely patent. Atheromatous change is seen throughout. Vertebral arteries: The vertebral arteries are widely patent bilaterally noting a left sided dominance. Subclavian arteries: Widely patent bilaterally. Intracranial vasculature: There is atherosclerotic calcification of the cavernous carotid and vertebral arteries. There is origin of the right posterior cerebral artery. The internal carotid arteries are patent at the skull base, as are the anterior and middle cerebral arteries bilaterally. There is atherosclerotic irregularity within the supraclinoid right internal carotid artery without focal/high-grade stenosis. The vertebrobasilar system and television operator ior cerebral arteries are widely patent. The left vertebral artery is dominant. There is no aneurysm, high-grade stenosis, or focal vessel cut off seen throughout the intracranial circulation. Jugular veins: Patent bilaterally. Dural sinuses: Patent. Lung apices: A cardiac pacemaker is noted in the left chest wall. Mild patchy ground glass opacities are noted in the upper lobes. Soft tissues: The visualized pharyngeal soft tissues are normal in appearance noting angiographic phase technique. The oropharyngeal airway appears widely patent. The salivary and thyroid glands are normal in appearance. No cervical lymphadenopathy is seen. Skeletal structures: The skeletal structures are osteopenic The calvarium appears intact. The cervical spine is maintained noting multilevel spondylosis. No lytic or blastic lesion is seen. Orbits: The bony orbits are intact. Orbital contents are normal as visualized. Sinuses and mastoids: There is trace mucosal thickening within the frontal sinuses. The remaining paranasal sinuses are clear. The mastoid air cells are well pneumatized. IMPRESSION: 1. There is no hemorrhage, mass effect, or evidence of acute territorial ischemia by CT criteria. 2. There is no aneurysm, high-grade stenosis, or focal vessel cut off seen throughout the intracranial circulation. 3. There is no evidence of high-grade stenosis of the major arteries in the neck. 4. Mild groundglass opacities in the upper lobes are nonspecific and may correspond to the reported history of Covid pneumonia. Clinical correlation will be required ACT 112: Negative or not required by law. Electronically signed by: Royce Marcum M.D. 04/15/2021 6:28 PM Discharge Plan Visit Data Chief Complaint: Altered Mental Status ED Provider: Maurice Patel Discharge Problem: COVID-19, Weakness generalized, Metabolic encephalopathy, Hypomagnesemia Patient Disposition: Admitted As Inpatient Discharge Instructions Interventions: ED Discharge Assessment Last Done: 04/15/21 23:46
[2021-04-15 15:49] LABS: Basophils # (auto) 0.01 K/uL (0-0.2); Basophils % (auto) 0.2 %; Hematocrit (blood only) 39.3 % (42-52); Hemoglobin 13.3 g/dL (14.0-18.0); Immature Granulocytes # (auto) 0.01 K/uL (0.00-0.02); Immature Granulocytes % (auto) 0.2 %; Lymphocytes # (auto) 0.67 K/uL (1.2-3.4); Lymphocytes % (auto) 11.8 %; Mean Corpuscular Hgb Conc 33.8 g/dL (32-36); Mean Corpuscular Volume 85.6 fL (80-100); Mean Platelet Volume 10.5 fL (7.4-10.4); Monocytes # (auto) 0.53 K/uL (0.11-0.59); Monocytes % (auto) 9.3 %; Neutrophils # (auto) 4.48 K/uL (1.4-6.5); Neutrophils % (auto) 78.5 %; Platelet Count 137 K/uL (130-400); RDW Coefficient of Variation 15.2 % (11.5-14.5); RDW Standard Deviation 47.7 fL (36.4-46.3); Red Blood Count 4.59 M/uL (4.7-6.1)
[2021-04-15 15:56] LABS: Albumin Level 2.9 gm/dl (3.4-5.0); BUN Creatinine Ratio 18.2 (10-20); Bilirubin Direct 0.2 mg/dl (0-0.2); Calcium 8.6 mg/dl (8.5-10.1); Creatinine Clr Calc Pharmacy 73.7 ml/min; Est GFR (African American) 89.5 ml/min; Est GFR (Non-African American) 77.3 ml/min; Magnesium 1.6 mg/dl (1.8-2.4); Potassium 3.7 mmol/L (3.5-5.1)
--- NOTE | 2021-04-15 16:00 | XRay Report ---
XR chest 1V portable CLINICAL HISTORY: Chest pain. COMPARISON STUDY: Chest radiograph April 11, 2021. FINDINGS: A dual-lead left subclavian pacer is in place. There is moderate cardiomegaly. There is a p ossible trace left pleural effusion. Low lung volumes. There is lower lung interstitial thickening an d mild opacities IMPRESSION: 1. Low lung volumes. Lower lung interstitial thickening and mild opacities, greater on the right. The findings could reflect an infectious process or pulmonary edema. 2. Possible trace left pleural effusion. ACT 112: Negative or not required by law. Electronically signed by: Brent Fregoso M.D. 04/15/2021 3:59 PM
[2021-04-15 16:05] LABS: Albumin Globulin Ratio 0.7 (0.9-2); Bilirubin,Total 0.4 mg/dl (0.2-1); Phosphorus 2.3 mg/dl (2.5-4.9); Thyroid Stimulating Hormone 1.31 uIu/ml (0.300-4.500); Total Protein 6.9 gm/dl (6.4-8.2); Troponin I 0.024 ng/ml (0-0.045)
[2021-04-15] MEDS ORDERED: OPTIRAY 350 500ml IV ONE (16:23)
[2021-04-15] MEDS ORDERED: MAGNESIUM SULFATE / D5W 1 GM/100 ML BAG IV STA (16:59)
--- NOTE | 2021-04-15 17:11 | Electrocardiogram Report ---
Test Reason : Blood Pressure : / mmHG Vent. Rate : 083 BPM Atrial Rate : 083 BPM P-R Int : 188 ms QRS Dur : 112 ms QT Int : 380 ms P-R-T Axes : 084 -65 033 degrees QTc Int : 446 ms Poor data quality, interpretation may be adversely affected Normal sinus rhythm Incomplete right bundle branch block Left anterior fascicular block Cannot rule out Anterior infarct , age undetermined Abnormal ECG When compared with ECG of 11-APR-2021 12:03, Sinus rhythm has replaced Electronic ventricular pacemaker Confirmed by Sathish Brunson ([id number]) on 04/15/2021 5:11:18 PM Referred By: REFERRED SELF Confirmed By:Craig Brunson
--- NOTE | 2021-04-15 18:30 | CT Scan Report ---
UNENHANCED CT OF THE BRAIN; CT ANGIOGRAM OF THE BRAIN; CT ANGIOGRAM OF THE NECK CLINICAL HISTORY: Change in mental status. Covid. COMPARISON STUDY: CT of the brain dated 04/13/2021. TECHNIQUE: Unenhanced axial CT scan of the brain is performed. Subsequently, following the IV adminis tration of 107 of Optiray 350, CT angiogram of the head and neck was performed from the aortic arch t o the vertex. Images are reviewed in the axial, sagittal, and coronal planes. 3-D MIPS images are cre ated and assessed. IV contrast was administered without complication. All measurements were calculate d based on NASCET criteria. A dose lowering technique was utilized adhering to the principles of ALA RA. 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 Chronic lacunar infarct is noted in the right thalamus. The re is no hemorrhage, mass effect, or evidence of acute territorial ischemia by CT criteria. There is no evidence of enhancing mass lesion on the angiogram phase images. The ventricles, sulci, and cister ns are prominent secondary to involutional change. Kaur-white matter differentiation is preserved. No extra-axial fluid collection is seen. Thoracic aorta: There is atherosclerotic calcification of the thoracic aorta. Visualized portions of the thoracic aorta are normal in caliber. The aortic arch demonstrates standard 3-vessel anatomy. Right carotid arterial system: The right common carotid artery is widely patent, as are the right int ernal and external carotid arteries. Atheromatous change is seen throughout with calcified plaque not ed in the carotid bulb. Left carotid arterial system: The left common carotid artery is widely patent. Calcified plaque cause s less than 50% luminal narrowing at the origin of the left internal carotid artery. The internal and external carotid arteries otherwise widely patent. Atheromatous change is seen throughout. Vertebral arteries: The vertebral arteries are widely patent bilaterally noting a left sided dominanc e. Subclavian arteries: Widely patent bilaterally. Intracranial vasculature: There is atherosclerotic calcification of the cavernous carotid and vertebr al arteries. There is origin of the right posterior cerebral artery. The internal carotid arter ies are patent at the skull base, as are the anterior and middle cerebral arteries bilaterally. There is atherosclerotic irregularity within the supraclinoid right internal carotid artery without focal/ high-grade stenosis. The vertebrobasilar system and posterior cerebral arteries are widely patent. Th e left vertebral artery is dominant. There is no aneurysm, high-grade stenosis, or focal vessel cut o ff seen throughout the intracranial circulation. Jugular veins: Patent bilaterally. Dural sinuses: Patent. Lung apices: A cardiac pacemaker is noted in the left chest wall. Mild patchy ground glass opacities are noted in the upper lobes. Soft tissues: The visualized pharyngeal soft tissues are normal in appearance noting angiographic pha se technique. The oropharyngeal airway appears widely patent. The salivary and thyroid glands are nor mal in appearance. No cervical lymphadenopathy is seen. Skeletal structures: The skeletal structures are osteopenic The calvarium appears intact. The cervica l spine is maintained noting multilevel spondylosis. No lytic or blastic lesion is seen. Orbits: The bony orbits are intact. Orbital contents are normal as visualized. Sinuses and mastoids: There is trace mucosal thickening within the frontal sinuses. The remaining par anasal sinuses are clear. The mastoid air cells are well pneumatized. IMPRESSION: 1. There is no hemorrhage, mass effect, or evidence of acute territorial ischemia by CT criteria. 2. There is no aneurysm, high-grade stenosis, or focal vessel cut off seen throughout the intracrania l circulation. 3. There is no evidence of high-grade stenosis of the major arteries in the neck. 4. Mild groundglass opacities in the upper lobes are nonspecific and may correspond to the reported h istory of Covid pneumonia. Clinical correlation will be required ACT 112: Negative or not required by law. Electronically signed by: Royce Marcum M.D. 04/15/2021 6:28 PM
[2021-04-15] MEDS ORDERED: SODIUM CHLORIDE 0.9% 1000ML 1,000 ML IV SCH (20:00)
--- NOTE | 2021-04-15 20:57 | History & Physical Report ---
Date of Service April 15, 2021 Assessment & Plan (1) COVID-19: 80yo C male with Covid-19 infection, approximately day 10 of illness. Patient with confusion - possibly secondary to Covid-19 delirium. Saturation 89% on room air. He has been on Dexamethasone at home, however, did not take his medications today. -Admit to medical with telemetry -Maintain isolation precautions -Check BNP, Procalcitonin -Repeat CK in AM -Dexamethasone 6mg IV daily -Supplemental O2 as needed -Lovenox 40u BID -Prone as tolerated Present on Admission?: Yes (2) Metabolic encephalopathy: Patient with confusion, most likely delirium secondary to underlying Covid-19 infection. Currently oriented to self only, following some commands. -Manage electrolytes -Delirium prevention strategies -IVF -Will check orthostatic VS x 1 as well as random cortisol - daughter states patient has episodic drops in blood pressure x 10 years especially while ill Present on Admission?: Yes (3) Type 2 diabetes mellitus: Chronic. [id number] currently. [id number]=7.6 on 04/12/21. Patient on Metformin and Novolin 70/30 as outpatient -Hold metformin -Lantus 10u BID -ISS -Goal blood sugar 110 - 140 Present on Admission?: Yes (4) Dyslipidemia: Chronic -Continue Atorvastatin 40mg po daily F/E/N- LR at 125mL/hr x 2 liters, electrolyte repletion - Mg and PO4, AHA/CC diet as tolerated Ppx - Lovenox 40 BID Code - Full Dispo - Admit to medical with telemetry POC - Emelina Angeles - daughter - [phone]. Updated at time of admission Present on Admission?: Yes History of Present Illness Chief Complaint: weakness, confusion Primary Care Provider: Melany Olson MD oLpez Quiroz is an 80yo C male with history of IDDM, HLP and prior CVA. Patient was recently admitted to [facility] from 04/11/21 - 04/14/21 with weakness, fatigue and episodic confusion secondary to Covid-19 infection. His symptoms seemingly started on 04/05/21. Patient was treated with Dexamethasone 6mg daily to be continued until 04/20/21 as well as supplemental oxygen. He was discharged home on room air. Of note, patient was confused on discharge. He returns today with ongoing confusion, lethargy and weakness. His daughter states that his blood pressure was low at home, 90/60 and his pulse ox was 91%. Daughter states that patient has been dealing with episodic drops in blood pressure for 10+ years. He becomes dizzy and confused then dry heaves. He sometimes gets very agitated and confused as well. Patient is confused, unable to answer questions appropriately or provide details of history. He denies pain or difficulty breathing at this time. Er Course: Magnesium, NSS x 500mL Allergies Allergy/AdvReac Type Severity Reaction Status Date / Time No Known Allergies Allergy Verified 04/15/21 16:59 Home Medications Medication Instructions Recorded Confirmed Type Novolin 70/30 U-100 Insulin 10 units SUBCUT QPM 10/02/18 04/15/21 History aspirin [Aspirin Low Dose] 81 mg PO QAM 10/02/18 04/15/21 History atorvastatin [Lipitor] 40 mg PO QPM 10/02/18 04/15/21 History docusate sodium 100 mg PO QPM 10/02/18 04/15/21 History metformin 1,000 mg PO BID 10/02/18 04/15/21 History tamsulosin [Flomax] 0.4 mg PO Q2D 10/02/18 04/15/21 History vitamin B complex 1 cap PO QAM 10/02/18 04/15/21 History Probiotic 0 mmu cells PO HS 04/11/21 04/15/21 History cholecalciferol (vitamin D3) 25 mcg PO HS 04/11/21 04/15/21 History [Vitamin D3] ferrous sulfate [iron] 325 mg PO HS 04/11/21 04/15/21 History multivitamin 1 tab PO QAM 04/11/21 04/15/21 History Novolin 70/30 U-100 Insulin 30 unit SUBCUT QAM #0 ml 04/14/21 04/15/21 Rx dexamethasone 6 mg PO DAILY #6 tab 04/14/21 04/15/21 Rx Past Med/Surg History Medical History Dyslipidemia History of stroke Type 2 diabetes mellitus Surgical History History of permanent cardiac pacemaker placement Family History Other No pertinent family history Social History Smoking Status: Unknown if ever smoked Tobacco Type: Cigarettes Second Hand Exposure: No; Hx Alcohol Use: No Hx Substance Use: No Preferred Language: Beninese Communication Ability: Effective District Supervisor Required: No Beliefs That Will Affect Care: None Current Living Situation: Family Feels Safe at Home: Yes Assistive Devices: Walker Review of Systems Review of Systems: Unobtainable due to cognitive status Physical Exam Physical Exam: General: patient resting comfortably, confused, oriented to self, does not answer questions appropriately, follows some commands Skin: warm, dry, intact, healing lesions on LLE HEENT: NC/AT, PERRL, EOMI, anicteric sclera, conjunctiva without injection, external ear normal to inspection and nontender, nares patent, moist mucus membranes, dentition intact, no oropharyngeal lesions, neck supple, trachea midline, no LAD, no thyromegaly, no JVD Heart: +S1/S2, regular, no m/r/g Lungs: equal air entry bilaterally, no rales/rhonchi/wheezes Abd: +BS, soft, NT/ND, no masses/organomegaly/ascites Ext: warm, 2+ pulses in UE/LE bilaterally, no clubbing/cyanosis or edema Neuro: diffuse weakness, strength 4/5, nonfocal, oriented only to self Results & Data Results & Data ([facility]) Vital Signs (Past 12 Hours) Vital Signs Temp Pulse Pulse Resp BP BP Pulse Ox 04/15/21 19:36 37.4 C 86 24 149/91 H 89 L 04/15/21 17:30 83 24 100/76 04/15/21 17:01 100 H 16 04/15/21 17:00 88 23 147/73 H 04/15/21 16:31 24 04/15/21 16:30 85 135/80 04/15/21 16:00 24 121/76 91 04/15/21 15:58 85 20 143/79 H 92 04/15/21 15:57 87 24 143/79 H 93 04/15/21 15:30 78 22 92 04/15/21 15:16 37.2 C 74 18 123/72 93 04/15/21 15:04 77 92 04/15/21 15:02 79 123/72 94 Laboratory Results Laboratory Results WBC 5.70 K/uL (4.8-10.8) 04/15/21 15:14 RBC 4.59 M/uL (4.7-6.1) L 04/15/21 15:14 Hgb 13.3 g/dL (14.0-18.0) L 04/15/21 15:14 Hct 39.3 % (42-52) L 04/15/21 15:14 MCV 85.6 fL (80-100) 04/15/21 15:14 MCH 29.0 pg (25-34) 04/15/21 15:14 MCHC 33.8 g/dL (32-36) 04/15/21 15:14 RDW Std Deviation 47.7 fL (36.4-46.3) H 04/15/21 15:14 RDW Coeff of Jean Marie 15.2 % (11.5-14.5) H 04/15/21 15:14 Plt Count 137 K/uL (130-400) 04/15/21 15:14 MPV 10.5 fL (7.4-10.4) H 04/15/21 15:14 Immature Gran % (Auto) 0.2 % 04/15/21 15:14 Neut % (Auto) 78.5 % 04/15/21 15:14 Lymph % (Auto) 11.8 % 04/15/21 15:14 [place] % (Auto) 9.3 % 04/15/21 15:14 Eos % (Auto) 0.0 % 04/15/21 15:14 Baso % (Auto) 0.2 % 04/15/21 15:14 Neut # (Auto) 4.48 K/uL (1.4-6.5) 04/15/21 15:14 Lymph # (Auto) 0.67 K/uL (1.2-3.4) L 04/15/21 15:14 [place] # (Auto) 0.53 K/uL (0.11-0.59) 04/15/21 15:14 Eos # (Auto) 0.00 K/uL (0-0.5) 04/15/21 15:14 Baso # (Auto) 0.01 K/uL (0-0.2) 04/15/21 15:14 Immature Gran # (Auto) 0.01 K/uL (0.00-0.02) 04/15/21 15:14 Sodium 136 mmol/L (136-145) 04/15/21 15:14 Potassium 3.7 mmol/L (3.5-5.1) 04/15/21 15:14 Chloride 103 mmol/L (98-107) 04/15/21 15:14 Carbon Dioxide 24 mmol/L (21-32) 04/15/21 15:14 Anion Gap 8.0 (3-11) 04/15/21 15:14 BUN 17 mg/dl (7-18) 04/15/21 15:14 Creatinine 0.93 mg/dl (0.6-1.4) 04/15/21 15:14 Est Cr Clr Drug Dosing 73.7 ml/min 04/15/21 15:14 Est GFR ( Amer) 89.5 ml/min 04/15/21 15:14 Est GFR (Non-Af Amer) 77.3 ml/min 04/15/21 15:14 BUN/Creatinine Ratio 18.2 (10-20) 04/15/21 15:14 Glucose 161 mg/dl (70-99) H 04/15/21 15:14 Calcium 8.6 mg/dl (8.5-10.1) 04/15/21 15:14 Phosphorus 2.3 mg/dl (2.5-4.9) L 04/15/21 15:14 Magnesium 1.6 mg/dl (1.8-2.4) L 04/15/21 15:14 Total Bilirubin 0.4 mg/dl (0.2-1) 04/15/21 15:14 Direct Bilirubin 0.2 mg/dl (0-0.2) 04/15/21 15:14 AST 59 U/L (15-37) H 04/15/21 15:14 ALT 43 U/L (12-78) 04/15/21 15:14 Alkaline Phosphatase 77 U/L (45-117) 04/15/21 15:14 Total Creatine Kinase 371 U/L (39-308) H 04/15/21 15:14 Troponin I 0.024 ng/ml (0-0.045) 04/15/21 15:14 Total Protein 6.9 gm/dl (6.4-8.2) 04/15/21 15:14 Albumin 2.9 gm/dl (3.4-5.0) L 04/15/21 15:14 Globulin 4.0 gm/dl (2.5-4.0) 04/15/21 15:14 Albumin/Globulin Ratio 0.7 (0.9-2) L 04/15/21 15:14 Lipase 75 U/L (73-393) 04/15/21 15:14 TSH 1.310 uIu/ml (0.300-4.500) 04/15/21 15:14 COVID-19 Eval Order Covid19 at [facility] 04/15/21 16:07 SARS-CoV-2 (PCR) POSITIVE (Negative) A* 04/15/21 16:07 Impressions Chest X-Ray 04/15/21 15:30 XR chest 1V portable CLINICAL HISTORY: Chest pain. COMPARISON STUDY: Chest radiograph April 11, 2021. FINDINGS: A dual-lead left subclavian pacer is in place. There is moderate cardiomegaly. There is a possible trace left pleural effusion. Low lung volumes. There is lower lung interstitial thickening and mild opacities IMPRESSION: 1. Low lung volumes. Lower lung interstitial thickening and mild opacities, greater on the right. The findings could reflect an infectious process or pulmonary edema. 2. Possible trace left pleural effusion. ACT 112: Negative or not required by law. Electronically signed by: Brent Fregoso M.D. 04/15/2021 3:[address] 04/15/21 15:[address] OF THE BRAIN; CT ANGIOGRAM OF THE BRAIN; CT ANGIOGRAM OF THE NECK CLINICAL HISTORY: Change in mental status. Covid. COMPARISON STUDY: CT of the brain dated 04/13/2021. TECHNIQUE: Unenhanced axial CT scan of the brain is performed. Subsequently, following the IV administration of 107 of Optiray 350, CT angiogram of the head and neck was performed from the aortic arch to the vertex. Images are reviewed in the axial, sagittal, and coronal planes. 3-D MIPS images are created and assessed. IV contrast was administered without complication. All measurements were calculated based on NASCET criteria. A dose lowering technique was utilized adhering to the principles of ALARA. 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 Chronic lacunar infarct is noted in the right thalamus. There is no hemorrhage, mass effect, or evidence of acute territorial ischemia by CT criteria. There is no evidence of enhancing mass lesion on the angiogram phase images. The ventricles, sulci, and cisterns are prominent secondary to involutional change. Kaur-white matter differentiation is preserved. No extra-axial fluid collection is seen. Thoracic aorta: There is atherosclerotic calcification of the thoracic aorta. Visualized portions of the thoracic aorta are normal in caliber. The aortic arch demonstrates standard 3-vessel anatomy. Right carotid arterial system: The right common carotid artery is widely patent, as are the right internal and external carotid arteries. Atheromatous change is seen throughout with calcified plaque noted in the carotid bulb. Left carotid arterial system: The left common carotid artery is widely patent. Calcified plaque causes less than 50% luminal narrowing at the origin of the left internal carotid artery. The internal and external carotid arteries otherwise widely patent. Atheromatous change is seen throughout. Vertebral arteries: The vertebral arteries are widely patent bilaterally noting a left sided dominance. Subclavian arteries: Widely patent bilaterally. Intracranial vasculature: There is atherosclerotic calcification of the cavernous carotid and vertebral arteries. There is origin of the right posterior cerebral artery. The internal carotid arteries are patent at the skull base, as are the anterior and middle cerebral arteries bilaterally. There is atherosclerotic irregularity within the supraclinoid right internal carotid artery without focal/high-grade stenosis. The vertebrobasilar system and posterior cerebral arteries are widely patent. The left vertebral artery is dominant. There is no aneurysm, high-grade stenosis, or focal vessel cut off seen throughout the intracranial circulation. Jugular veins: Patent bilaterally. Dural sinuses: Patent. Lung apices: A cardiac pacemaker is noted in the left chest wall. Mild patchy ground glass opacities are noted in the upper lobes. Soft tissues: The visualized pharyngeal soft tissues are normal in appearance noting angiographic phase technique. The oropharyngeal airway appears widely patent. The salivary and thyroid glands are normal in appearance. No cervical lymphadenopathy is seen. Skeletal structures: The skeletal structures are osteopenic The calvarium appears intact. The cervical spine is maintained noting multilevel spondylosis. No lytic or blastic lesion is seen. Orbits: The bony orbits are intact. Orbital contents are normal as visualized. Sinuses and mastoids: There is trace mucosal thickening within the frontal sinuses. The remaining paranasal sinuses are clear. The mastoid air cells are well pneumatized. IMPRESSION: 1. There is no hemorrhage, mass effect, or evidence of acute territorial ischemia by CT criteria. 2. There is no aneurysm, high-grade stenosis, or focal vessel cut off seen throughout the intracranial circulation. 3. There is no evidence of high-grade stenosis of the major arteries in the neck. 4. Mild groundglass opacities in the upper lobes are nonspecific and may correspond to the reported history of Covid pneumonia. Clinical correlation will be required ACT 112: Negative or not required by law. Electronically signed by: Royce Marcum M.D. 04/15/2021 6:28 PM Head CTA 04/15/21 15:[address] OF THE BRAIN; CT ANGIOGRAM OF THE BRAIN; CT ANGIOGRAM OF THE NECK CLINICAL HISTORY: Change in mental status. Covid. COMPARISON STUDY: CT of the brain dated 04/13/2021. TECHNIQUE: Unenhanced axial CT scan of the brain is performed. Subsequently, following the IV administration of 107 of Optiray 350, CT angiogram of the head and neck was performed from the aortic arch to the vertex. Images are reviewed in the axial, sagittal, and coronal planes. 3-D MIPS images are created and assessed. IV contrast was administered without complication. All measurements were calculated based on NASCET criteria. A dose lowering technique was utilized adhering to the principles of ALARA. 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 Chronic lacunar infarct is noted in the right thalamus. There is no hemorrhage, mass effect, or evidence of acute territorial ischemia by CT criteria. There is no evidence of enhancing mass lesion on the angiogram phase images. The ventricles, sulci, and cisterns are prominent secondary to involutional change. Kaur-white matter differentiation is preserved. No extra-axial fluid collection is seen. Thoracic aorta: There is atherosclerotic calcification of the thoracic aorta. Visualized portions of the thoracic aorta are normal in caliber. The aortic arch demonstrates standard 3-vessel anatomy. Right carotid arterial system: The right common carotid artery is widely patent, as are the right internal and external carotid arteries. Atheromatous change is seen throughout with calcified plaque noted in the carotid bulb. Left carotid arterial system: The left common carotid artery is widely patent. Calcified plaque causes less than 50% luminal narrowing at the origin of the left internal carotid artery. The internal and external carotid arteries other mccarty widely patent. Atheromatous change is seen throughout. Vertebral arteries: The vertebral arteries are widely patent bilaterally noting a left sided dominance. Subclavian arteries: Widely patent bilaterally. Intracranial vasculature: There is atherosclerotic calcification of the cavernous carotid and vertebral arteries. There is origin of the right posterior cerebral artery. The internal carotid arteries are patent at the skull base, as are the anterior and middle cerebral arteries bilaterally. There is atherosclerotic irregularity within the supraclinoid right internal carotid artery without focal/high-grade stenosis. The vertebrobasilar system and posterior cerebral arteries are widely patent. The left vertebral artery is dominant. There is no aneurysm, high-grade stenosis, or focal vessel cut off seen throughout the intracranial circulation. Jugular veins: Patent bilaterally. Dural sinuses: Patent. Lung apices: A cardiac pacemaker is noted in the left chest wall. Mild patchy ground glass opacities are noted in the upper lobes. Soft tissues: The visualized pharyngeal soft tissues are normal in appearance noting angiographic phase technique. The oropharyngeal airway appears widely patent. The salivary and thyroid glands are normal in appearance. No cervical lymphadenopathy is seen. Skeletal structures: The skeletal structures are osteopenic The calvarium appears intact. The cervical spine is maintained noting multilevel spondylosis. No lytic or blastic lesion is seen. Orbits: The bony orbits are intact. Orbital contents are normal as visualized. Sinuses and mastoids: There is trace mucosal thickening within the frontal sinuses. The remaining paranasal sinuses are clear. The mastoid air cells are well pneumatized. IMPRESSION: 1. There is no hemorrhage, mass effect, or evidence of acute territorial ischemia by CT criteria. 2. There is no aneurysm, high-grade stenosis, or focal vessel cut off seen throughout the intracranial circulation. 3. There is no evidence of high-grade stenosis of the major arteries in the neck. 4. Mild groundglass opacities in the upper lobes are nonspecific and may correspond to the reported history of Covid pneumonia. Clinical correlation will be required ACT 112: Negative or not required by law. Electronically signed by: Royce Marcum M.D. 04/15/2021 6:28 PM Neck CTA 04/15/21 15:[address] OF THE BRAIN; CT ANGIOGRAM OF THE BRAIN; CT ANGIOGRAM OF THE NECK CLINICAL HISTORY: Change in mental status. Covid. COMPARISON STUDY: CT of the brain dated 04/13/2021. TECHNIQUE: Unenhanced axial CT scan of the brain is performed. Subsequently, following the IV administration of 107 of Optiray 350, CT angiogram of the head and neck was performed from the aortic arch to the vertex. Images are reviewed in the axial, sagittal, and coronal planes. 3-D MIPS images are created and assessed. IV contrast was administered without complication. All measurements were calculated based on NASCET criteria. A dose lowering technique was utilized adhering to the principles of ALARA. 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 Chronic lacunar infarct is noted in the right thalamus. There is no hemorrhage, mass ef fect, or evidence of acute territorial ischemia by CT criteria. There is no evidence of enhancing mass lesion on the angiogram phase images. The ventricles, sulci, and cisterns are prominent secondary to involutional change. Kaur-white matter differentiation is preserved. No extra-axial fluid collection is seen. Thoracic aorta: There is atherosclerotic calcification of the thoracic aorta. Visualized portions of the thoracic aorta are normal in caliber. The aortic arch demonstrates standard 3-vessel anatomy. Right carotid arterial system: The right common carotid artery is widely patent, as are the right internal and external carotid arteries. Atheromatous change is seen throughout with calcified plaque noted in the carotid bulb. Left carotid arterial system: The left common carotid artery is widely patent. Calcified plaque causes less than 50% luminal narrowing at the origin of the left internal carotid artery. The internal and external carotid arteries otherwise widely patent. Atheromatous change is seen throughout. Vertebral arteries: The vertebral arteries are widely patent bilaterally noting a left sided dominance. Subclavian arteries: Widely patent bilaterally. Intracranial vasculature: There is atherosclerotic calcification of the cavernous carotid and vertebral arteries. There is origin of the right posterior cerebral artery. The internal carotid arteries are patent at the skull base, as are the anterior and middle cerebral arteries bilaterally. There is atherosclerotic irregularity within the supraclinoid right internal carotid artery without focal/high-grade stenosis. The vertebrobasilar system and posterior cerebral arteries are widely patent. The left vertebral artery is dominant. There is no aneurysm, high-grade stenosis, or focal vessel cut off seen throughout the intracranial circulation. Jugular veins: Patent bilaterally. Dural sinuses: Patent. Lung apices: A cardiac pacemaker is noted in the left chest wall. Mild patchy ground glass opacities are noted in the upper lobes. Soft tissues: The visualized pharyngeal soft tissues are normal in appearance noting angiographic phase technique. The oropharyngeal airway appears widely patent. The salivary and thyroid glands are normal in appearance. No cervical lymphadenopathy is seen. Skeletal structures: The skeletal structures are osteopenic The calvarium appears intact. The cervical spine is maintained noting multilevel spondylosis. No lytic or blastic lesion is seen. Orbits: The bony orbits are intact. Orbital contents are normal as visualized. Sinuses and mastoids: There is trace mucosal thickening within the frontal sinuses. The remaining paranasal sinuses are clear. The mastoid air cells are well pneumatized. IMPRESSION: 1. There is no hemorrhage, mass effect, or evidence of acute territorial ischemia by CT criteria. 2. There is no aneurysm, high-grade stenosis, or focal vessel cut off seen throughout the intracranial circulation. 3. There is no evidence of high-grade stenosis of the major arteries in the neck. 4. Mild groundglass opacities in the upper lobes are nonspecific and may correspond to the reported history of Covid pneumonia. Clinical correlation will be required ACT 112: Negative or not required by law. Electronically signed by: Royce Marcum M.D. 04/15/2021 6:28 PM ECG Additional Comments: NSR at 83, left axis, incomplete RBBB Code Status & VTE Plan VTE Prophylaxis Plan VTE Prophylaxis will be ordered: Yes PG Care Time/CCT Total # of Minutes Spent Total Time Spent with Patient: Total time spent is greater than 50% in coordination of care (as documented) at patient's floor/unit and/or counseling patient: Coding Level of Care Code 41883 Initial Inpt Care Lvl 3 Diagnoses COVID-19 U07.1 Metabolic encephalopathy G93.41 Type 2 diabetes mellitus E11.9; Z79.4 Diabetes mellitus long-term insulin use: with terminal make up operator use Diabetes mellitus complication status: without complication Dyslipidemia E78.5 (1) Type 2 diabetes mellitus Diabetes mellitus long-term insulin use: with terminal make up operator use Diabetes mellitus complication status: without complication Qualified Code(s): E11.9 - Type 2 diabetes mellitus without complications; Z79.4 - care home (current) use of insulin
[2021-04-16] MEDS ORDERED: CARBOHYDRATES FOR HYPOGLYCEMIA PO PRN (00:22)
[2021-04-16] MEDS ORDERED: GLUCOSE 40% GEL 15 GM TUBE PO PRN (00:22)
[2021-04-16] MEDS ORDERED: POTASSIUM PHOS 3 MMOL/1 ML INFUSION IV STA (00:22)
[2021-04-16] MEDS ORDERED: ONDANSETRON INJ 2 MG/ML 2 ML VIAL IV PRN (00:22)
[2021-04-16] MEDS ORDERED: GLUCOSE 10 TABS/TUBE PO PRN (00:22)
[2021-04-16] MEDS ORDERED: DEXTROSE 50% 50 ML SYRINGE IV PRN (00:22)
[2021-04-16] MEDS ORDERED: ACETAMINOPHEN 325 MG TAB PO PRN (00:22)
[2021-04-16] MEDS ORDERED: GLUCAGON FOR INJ 1 MG VIAL SQ PRN (00:22)
[2021-04-16] MEDS ORDERED: MAGNESIUM SULFATE / D5W 1 GM/100 ML BAG IV ONE (01:00)
[2021-04-16] MEDS ORDERED: POTASSIUM PHOSPHATE 6 MMOL in 0.9 % SODIUM CHLORIDE 100 ML IV ONE (01:00)
[2021-04-16] MEDS: INSULIN ASPART 100 UNITS/ML 3 ML PEN SC SCH ×6 (01:30→21:50)
[2021-04-16] MEDS: INSULIN GLARGINE SOLOSTAR 100 UNITS/ML 3 ML PEN SC SCH ×3 (01:30→21:50)
[2021-04-16] MEDS: dexAMETHasone 6 MG in SYRINGE 0 ML IV SCH ×2 (01:30→09:26)
[2021-04-16] MEDS: ATORVASTATIN 40 MG TAB PO SCH ×2 (01:34→21:50)
[2021-04-16] MEDS: FERROUS SULFATE 325 MG TAB PO SCH ×2 (01:35→21:50)
[2021-04-16] MEDS: CHOLECALCIFEROL 1,000 UNITS 25 MCG TAB PO SCH ×2 (01:35→21:50)
[2021-04-16] MEDS: DOCUSATE SODIUM 100 MG CAP PO SCH ×2 (01:35→21:50)
[2021-04-16] MEDS: BENZONATATE 100 MG CAPSULE PO SCH ×4 (01:35→21:50)
[2021-04-16 01:40] LABS: Base Excess VBG 1.1 mEq/L; HCO3 VBG 25 mmol/L; Oxygen Saturation VBG < 60.0 %; PCO2 VBG 40 mmHg (38-50); PO2 VBG 24 mmHg; pH VBG 7.43 (7.36-7.41)
[2021-04-16 01:54] LABS: Troponin I 0.031 ng/ml (0-0.045)
[2021-04-16 08:20] LABS: Basophils # (auto) 0.01 K/uL (0-0.2); Basophils % (auto) 0.2 %; Hematocrit (blood only) 39.2 % (42-52); Hemoglobin 13.3 g/dL (14.0-18.0); Immature Granulocytes # (auto) 0.01 K/uL (0.00-0.02); Immature Granulocytes % (auto) 0.2 %; Lymphocytes # (auto) 0.52 K/uL (1.2-3.4); Lymphocytes % (auto) 11.7 %; Mean Corpuscular Hemoglobin 29.3 pg (25-34); Mean Corpuscular Hgb Conc 33.9 g/dL (32-36); Mean Corpuscular Volume 86.3 fL (80-100); Mean Platelet Volume 10.7 fL (7.4-10.4); Monocytes # (auto) 0.16 K/uL (0.11-0.59); Monocytes % (auto) 3.6 %; Neutrophils # (auto) 3.75 K/uL (1.4-6.5); Neutrophils % (auto) 84.3 %; Platelet Count 172 K/uL (130-400); RDW Coefficient of Variation 15.2 % (11.5-14.5); RDW Standard Deviation 48.8 fL (36.4-46.3); Red Blood Count 4.54 M/uL (4.7-6.1); White Blood Count 4.45 K/uL (4.8-10.8)
[2021-04-16 08:38] LABS: Albumin Level 2.7 gm/dl (3.4-5.0); BUN Creatinine Ratio 23.5 (10-20); Bilirubin Direct 0.2 mg/dl (0-0.2); Calcium 8.5 mg/dl (8.5-10.1); Creatinine Clr Calc Pharmacy 108.3 ml/min; Est GFR (African American) 106.5 ml/min; Est GFR (Non-African American) 91.9 ml/min; Magnesium 2.2 mg/dl (1.8-2.4); Potassium 3.9 mmol/L (3.5-5.1)
[2021-04-16 08:41] LABS: Bilirubin,Total 0.4 mg/dl (0.2-1); Total Protein 6.9 gm/dl (6.4-8.2)
[2021-04-16] MEDS: ENOXAPARIN INJ 40 MG/0.4 ML SYR SQ SCH ×2 (09:26→21:50)
[2021-04-16] MEDS: TAMSULOSIN HCL 0.4 MG CAP PO SCH (09:27)
[2021-04-16] MEDS: ASPIRIN 81 MG ECTAB PO SCH (09:27)
--- NOTE | 2021-04-16 18:56 | Hospitalist Progress Note ---
Date of Service April 16, 2021 Assessment & Plan (1) Pneumonia due to COVID-19 virus: first dose of dexamethasone was 04/11 - thus, day #6 of IV/PO dexamethasone. cont 10 days since he has worsened over the last week and has new O2 requirement. cont supportive care. cont pulmonary toilet. check a baseline d-dimer in am. NC O2 to maintain sats 90% or more. (2) COVID-19: as above (3) Acute respiratory failure with hypoxia: 2nd COVID-19 pneumonia no evidence of complicating CHF or PE (4) Metabolic encephalopathy: Per daughter has dementia. Thus, superimposed delirium - due to COVID-19 illness. Steroids can contribute to delirium, new environment/hospital psychosis, etc. Supportive care. Avoid benzos/sedatives. (5) Type 2 diabetes mellitus: [id number]=5.6 on 04/12/21. Patient on Metformin and Novolin 70/30 as outpatient Hold metformin Hold 70/30 uncontrolled due to steroids. INCREASE Lantus to 15 units BID INCREASE correction/carb coverage w/ novolog (6) Dyslipidemia: on statin recent ast/alt elevated due to COVID-19 these are trending down thus reasonable to continue lipitor (7) Pacemaker: noted interrogation done during recent admission follows with Dr Alexander Yeager, [facility] - [place] (8) Transaminitis: 2nd COVID-19 infection trend ast/alt (9) DVT prophylaxis: lovenox 40mg BID needs PT, OT daughter extensively updated by phone 04/16/21 Admission and Anticipated Discharge Date Admission Date: April 15, 2021 Subjective tele overnight -- pacing with NSR no bradycardia patient very confused unable to give much history or ROS does endorse cough but no dyspnea no cp no abdominal pain Review of Systems Review of Systems: Unobtainable due to cognitive status Physical Exam Constitutional: + altered mental status; no acute distress ENMT: external ear and nose normal, oropharynx normal Respiratory: no respiratory distress Auscultation: + crackles (bases); no wheezes Cardiovascular: Rate/Rhythm: regular rate and regular rhythm Heart Sounds: normal S1 and normal S2 Vessels: posterior tibial pulses present and dorsalis pedis pulses present; no JVD Extremities: no edema Gastrointestinal (Abdomen): normal bowel sounds, soft, nontender, no hepatosplenomegaly Skin: no rashes, warm and dry Psychiatric: Orientation: alert, oriented to person and oriented to place; + not oriented to time Results & Data Results & Data ([facility]) Vital Signs (Past 12 Hours) Vital Signs Temp Pulse Pulse Resp BP Pulse Ox 04/16/21 15:12 36.3 C L 98 H 20 148/73 H 92 04/16/21 15:00 70 04/16/21 11:38 36.6 C 78 18 143/78 H 91 04/16/21 08:07 36.7 C 74 18 136/80 93 Laboratory Results Laboratory Results - last 24 hr 04/16/21 04/16/21 04/16/21 01:18 01:18 01:18 WBC RBC Hgb Hct MCV MCH MCHC RDW Std Deviation RDW Coeff of Jean [place] Plt Count MPV Immature Gran % (Auto) Neut % (Auto) Lymph % (Auto) [place] % (Auto) Eos % (Auto) Baso % (Auto) Neut # (Auto) Lymph # (Auto) [place] # (Auto) Eos # (Auto) Baso # (Auto) Immature Gran # (Auto) VBG pH VBG pCO2 VBG pO2 VBG HCO3 VBG O2 Saturation VBG Base Excess Barometric Pressure Sodium Potassium Chloride Carbon Dioxide Anion Gap BUN Creatinine Est Cr Clr Drug Dosing Est GFR ( Amer) Est GFR (Non-Af Amer) BUN/Creatinine Ratio Glucose POC Glucose Calcium Magnesium Total Bilirubin Direct Bilirubin AST ALT Alkaline Phosphatase Total Creatine Kinase Troponin I 0.031 NT-Pro-B Natriuret Pep 481 Total Protein Albumin Procalcitonin < 0.05 Random Cortisol 29.38 04/16/21 04/16/21 04/16/21 01:19 01:33 07:50 WBC 4.45 L RBC 4.54 L Hgb 13.3 L Hct 39.2 L MCV 86.3 MCH 29.3 MCHC 33.9 RDW Std Deviation 48.8 H RDW Coeff of Jean Marie 15.2 H Plt Count 172 MPV 10.7 H Immature Gran % (Auto) 0.2 Neut % (Auto) 84.3 Lymph % (Auto) 11.7 [place] % (Auto) 3.6 Eos % (Auto) 0.0 Baso % (Auto) 0.2 Neut # (Auto) 3.75 Lymph # (Auto) 0.52 L [place] # (Auto) 0.16 Eos # (Auto) 0.00 Baso # (Auto) 0.01 Immature Gran # (Auto) 0.01 VBG pH 7.43 H VBG pCO2 40 VBG pO2 24 VBG HCO3 25 VBG O2 Saturation < 60.0 VBG Base Excess 1.1 Barometric Pressure 737.5 Sodium Potassium Chloride Carbon Dioxide Anion Gap BUN Creatinine Est Cr Clr Drug Dosing Est GFR ( Amer) Est GFR (Non-Af Amer) BUN/Creatinine Ratio Glucose POC Glucose 131 H Calcium Magnesium Total Bilirubin Direct Bilirubin AST ALT Alkaline Phosphatase Total Creatine Kinase Troponin I NT-Pro-B Natriuret Pep Total Protein Albumin Procalcitonin Random Cortisol 04/16/21 04/16/21 04/16/21 07:50 07:50 08:12 WBC RBC Hgb Hct MCV MCH MCHC RDW Std Deviation RDW Coeff of [place] Plt Count MPV Immature Gran % (Auto) Neut % (Auto) Lymph % (Auto) [place] % (Auto) Eos % (Auto) Baso % (Auto) Neut # (Auto) Lymph # (Auto) [place] # (Auto) Eos # (Auto) Baso # (Auto) Immature Gran # (Auto) VBG pH VBG pCO2 VBG pO2 VBG HCO3 VBG O2 Saturation VBG Base Excess Barometric Pressure Sodium 136 Potassium 3.9 Chloride 104 Carbon Dioxide 22 Anion Gap 10.0 BUN 15 Creatinine 0.65 Est Cr Clr Drug Dosing 108.3 Est GFR ( Amer) 106.5 Est GFR (Non-Af Amer) 91.9 BUN/Creatinine Ratio 23.5 H Glucose 194 H POC Glucose 189 H Calcium 8.5 Magnesium 2.2 Total Bilirubin 0.4 Direct Bilirubin 0.2 AST 49 H ALT 38 Alkaline Phosphatase 74 Total Creatine Kinase 233 Troponin I 0.027 NT-Pro-B Natriuret Pep Total Protein 6.9 Albumin 2.7 L Procalcitonin Random Cortisol 04/16/21 04/16/21 04/16/21 11:32 11:32 11:33 WBC RBC Hgb Hct MCV MCH MCHC RDW Std Deviation RDW Coeff of [place] Plt Count MPV Immature Gran % (Auto) Neut % (Auto) Lymph % (Auto) [place] % (Auto) Eos % (Auto) Baso % (Auto) Neut # (Auto) Lymph # (Auto) [place] # (Auto) Eos # (Auto) Baso # (Auto) Immature Gran # (Auto) VBG pH VBG pCO2 VBG pO2 VBG HCO3 VBG O2 Saturation VBG Base Excess Barometric Pressure Sodium Potassium Chloride Carbon Dioxide Anion Gap BUN Creatinine Est Cr Clr Drug Dosing Est GFR ( Amer) Est GFR (Non-Af Amer) BUN/Creatinine Ratio Glucose POC Glucose 317 H* 281 H 313 H* Calcium Magnesium Total Bilirubin Direct Bilirubin AST ALT Alkaline Phosphatase Total Creatine Kinase Troponin I NT-Pro-B Natriuret Pep Total Protein Albumin Procalcitonin Random Cortisol 04/16/21 16:30 WBC RBC Hgb Hct MCV MCH MCHC RDW Std Deviation RDW Coeff of [place] Plt Count MPV Immature Gran % (Auto) Neut % (Auto) Lymph % (Auto) [place] % (Auto) Eos % (Auto) Baso % (Auto) Neut # (Auto) Lymph # (Auto) [place] # (Auto) Eos # (Auto) Baso # (Auto) Immature Gran # (Auto) VBG pH VBG pCO2 VBG pO2 VBG HCO3 VBG O2 Saturation VBG Base Excess Barometric Pressure Sodium Potassium Chloride Carbon Dioxide Anion Gap BUN Creatinine Est Cr Clr Drug Dosing Est GFR ( Amer) Est GFR (Non-Af Amer) BUN/Creatinine Ratio Glucose POC Glucose 219 H Calcium Magnesium Total Bilirubin Direct Bilirubin AST ALT Alkaline Phosphatase Total Creatine Kinase Troponin I NT-Pro-B Natriuret Pep Total Protein Albumin Procalcitonin Random Cortisol PG Care Time/CCT Total # of Minutes Spent Total Time Spent with Patient: Total time spent is greater than 50% in coordination of care (as documented) at patient's floor/unit and/or counseling patient: Coding Level of Care Code 06007 Subseq Hosp Care Lvl 3 Diagnoses Pneumonia due to COVID-19 virus U07.1; J12.82 COVID-19 U07.1 Acute respiratory failure with hypoxia J96.01 Metabolic encephalopathy G93.41 Type 2 diabetes mellitus E11.9; Z79.4 Diabetes mellitus chcf insulin use: with chcf use Diabetes mellitus complication status: without complication Dyslipidemia E78.5 Pacemaker Z95.0 Transaminitis R74.01 DVT prophylaxis Z29.9 (1) Type 2 diabetes mellitus Diabetes mellitus chcf insulin use: with chcf use Diabetes mellitus complication status: without complication Qualified Code(s): E11.9 - Type 2 diabetes mellitus without complications; Z79.4 - senior care (current) use of insulin
[2021-04-17] MEDS: ASPIRIN 81 MG ECTAB PO SCH (09:03)
[2021-04-17] MEDS: BENZONATATE 100 MG CAPSULE PO SCH ×3 (09:03→19:44)
[2021-04-17] MEDS: ENOXAPARIN INJ 40 MG/0.4 ML SYR SQ SCH ×2 (09:04→19:44)
[2021-04-17] MEDS: dexAMETHasone 6 MG in SYRINGE 0 ML IV SCH (09:04)
[2021-04-17] MEDS: INSULIN ASPART 100 UNITS/ML 3 ML PEN SC SCH ×4 (09:05→20:29)
[2021-04-17 09:42] LABS: Hematocrit (blood only) 38.1 % (42-52); Hemoglobin 13.3 g/dL (14.0-18.0); Mean Corpuscular Hgb Conc 34.9 g/dL (32-36); Mean Platelet Volume 10.9 fL (7.4-10.4); Platelet Count 175 K/uL (130-400); RDW Coefficient of Variation 15.1 % (11.5-14.5); RDW Standard Deviation 47.9 fL (36.4-46.3); Red Blood Count 4.43 M/uL (4.7-6.1); White Blood Count 6.75 K/uL (4.8-10.8)
[2021-04-17 09:49] LABS: BUN Creatinine Ratio 29.9 (10-20); Calcium 8.6 mg/dl (8.5-10.1); Creatinine Clr Calc Pharmacy 95.2 ml/min; Est GFR (Non-African American) 87.1 ml/min; Potassium 3.7 mmol/L (3.5-5.1)
[2021-04-17] MEDS: INSULIN GLARGINE SOLOSTAR 100 UNITS/ML 3 ML PEN SC SCH ×2 (09:50→20:26)
[2021-04-17 10:35] LABS: D Dimer 1350 ug/L FEU (0-500)
[2021-04-17 13:07] LABS: Appearance Urine Clear (Clear); Bacteria Urine Automated Negative (Negative); Bilirubin Urine Negative (Negative); Blood Urine Negative (Negative); Color Urine Dark Yellow; Glucose Urine UA Trace (Negative); Ketones Urine Trace (Negative); Leukocyte Esterase Urine Negative (Negative); Nitrite Urine Negative (Negative); Protein Urine 1+ (Negative); RBC Urine Automated 0-4 /hpf (0-4); Specific Gravity Urine 1.028 (1.000-1.030); Urobilinogen Urine Negative (Negative)
[2021-04-17] MEDS: FERROUS SULFATE 325 MG TAB PO SCH (19:44)
[2021-04-17] MEDS: DOCUSATE SODIUM 100 MG CAP PO SCH (19:44)
[2021-04-17] MEDS: CHOLECALCIFEROL 1,000 UNITS 25 MCG TAB PO SCH (19:44)
[2021-04-17] MEDS: ATORVASTATIN 40 MG TAB PO SCH (19:44)
--- NOTE | 2021-04-17 20:06 | Hospitalist Progress Note ---
Date of Service April 17, 2021 Assessment & Plan (1) Pneumonia due to COVID-19 virus: first dose of dexamethasone was 04/11 - thus, day #7 of IV/PO dexamethasone. cont 10 days since he worsened over the last week and had new O2 requirement. cont supportive care. cont pulmonary toilet. baseline d-dimer noted today. O2 weaned off this am; if sats are 90% or more can remain off of such. (2) COVID-19: as above (3) Acute respiratory failure with hypoxia: 2nd COVID-19 pneumonia no evidence of complicating CHF or PE IMPROVED (4) Metabolic encephalopathy: Per daughter has dementia. Thus, superimposed delirium - due to COVID-19 illness. Steroids can contribute to delirium, new environment/hospital psychosis, etc. Supportive care. Avoid benzos/sedatives. Overall mentation has improved. (5) Type 2 diabetes mellitus: [id number]=7.6 on 04/12/21. Patient on Metformin and Novolin 70/30 as outpatient Hold metformin Hold 70/30 uncontrolled due to steroids. INCREASE Lantus to 18 units BID INCREASE correction/carb coverage w/ novolog (6) Dyslipidemia: on statin recent ast/alt elevated due to COVID-19 these are trending down thus reasonable to continue lipitor (7) Pacemaker: noted interrogation done during recent admission follows with Dr Alexander Yeager, [facility] - [place] pacing at times on monitor (8) Transaminitis: 2nd COVID-19 infection ast continues to improve (9) DVT prophylaxis: lovenox 40mg BID daughter extensively updated by phone 04/16/21 and 04/17/21 PT and OT - Admission and Anticipated Discharge Date Admission Date: April 15, 2021 Subjective tele - NSR or pacing he was sitting in chair by window during the visit he looked better today ate decently denied dyspnea or cough no abd pain confused - only oriented to person - but knew he was in hospital "for COVID" denied any other complaints has been off oxygen since late this am Review of Systems Constitutional: no fever, no chills, no body aches and no anorexia Respiratory: no dyspnea Cardiovascular: no chest pain Gastrointestinal: no abdominal pain Physical Exam Constitutional: + altered mental status (Confirmed w/ daughter that today's MS is at baseline); no acute distress ENMT: external ear and nose normal, oropharynx normal Respiratory: no respiratory distress Auscultation: + crackles (bases); no wheezes Cardiovascular: Rate/Rhythm: regular rate and regular rhythm Heart Sounds: normal S1 and normal S2 Vessels: posterior tibial pulses present and dorsalis pedis pulses present; no JVD Extremities: no edema Gastrointestinal (Abdomen): normal bowel sounds, soft, nontender, no hepatosplenomegaly Skin: no rashes, warm and dry Psychiatric: Orientation: alert, oriented to person and oriented to place; + not oriented to time Results & Data Results & Data ([facility]) Vital Signs (Past 12 Hours) Vital Signs Temp Pulse Resp BP Pulse Ox Pulse Ox Pulse Ox 04/17/21 19:43 36.5 C 82 16 124/72 93 04/17/21 13:16 90 91 04/17/21 11:30 79 16 113/70 92 Pulse Ox 04/17/21 19:43 04/17/21 13:16 87 L 04/17/21 11:30 Laboratory Results Laboratory Results - last 24 hr 04/16/21 04/17/21 04/17/21 20:17 07:47 07:47 WBC 6.75 RBC 4.43 L Hgb 13.3 L Hct 38.1 L MCV 86.0 MCH 30.0 MCHC 34.9 RDW Std Deviation 47.9 H RDW Coeff of Jean Marie 15.1 H Plt Count 175 MPV 10.9 H D-Dimer Sodium 138 Potassium 3.7 Chloride 105 Carbon Dioxide 26 Anion Gap 7.0 BUN 22 H Creatinine 0.74 Est Cr Clr Drug Dosing 95.2 Est GFR ( Amer) 101.0 Est GFR (Non-Af Amer) 87.1 BUN/Creatinine Ratio 29.9 H Glucose 118 H POC Glucose 202 H Calcium 8.6 AST 52 H Vitamin B12 Urine Color Urine Appearance Urine pH Ur Specific [place] Urine Protein Urine Glucose (UA) Urine Ketones Urine Blood Urine Nitrite Urine Bilirubin Urine Urobilinogen Ur Leukocyte Esterase Urine WBC (Auto) Urine RBC (Auto) U Hyaline Cast (Auto) U Epithel Cells (Auto) Urine Bacteria (Auto) 04/17/21 04/17/21 04/17/21 08:16 09:34 09:34 WBC RBC Hgb Hct MCV MCH MCHC RDW Std Deviation RDW Coeff of Jean Marie Plt Count MPV D-Dimer 1350 H* Sodium Potassium Chloride Carbon Dioxide Anion Gap BUN Creatinine Est Cr Clr Drug Dosing Est GFR ( Amer) Est GFR (Non-Af Amer) BUN/Creatinine Ratio Glucose POC Glucose 127 H Calcium AST Vitamin B12 1168 H Urine Color Urine Appearance Urine pH Ur Specific [place] Urine Protein Urine Glucose (UA) Urine Ketones Urine Blood Urine Nitrite Urine Bilirubin Urine Urobilinogen Ur Leukocyte Esterase Urine WBC (Auto) Urine RBC (Auto) U Hyaline Cast (Auto) U Epithel Cells (Auto) Urine Bacteria (Auto) 04/17/21 04/17/21 04/17/21 12:21 16:36 Unknown WBC RBC Hgb Hct MCV MCH MCHC RDW Std Deviation RDW Coeff of Jean [place] Plt Count MPV D-Dimer Sodium Potassium Chloride Carbon Dioxide Anion Gap BUN Creatinine Est Cr Clr Drug Dosing Est GFR ( Amer) Est GFR (Non-Af Amer) BUN/Creatinine Ratio Glucose POC Glucose 156 H 247 H Calcium AST Vitamin B12 Urine Color Dark Yellow Urine Appearance Clear Urine pH 6.0 Ur Specific [place] 1.028 Urine Protein 1+ H Urine Glucose (UA) Trace H Urine Ketones Trace H Urine Blood Negative Urine Nitrite Negative Urine Bilirubin Negative Urine Urobilinogen Negative Ur Leukocyte Esterase Negative Urine WBC (Auto) 1-5 Urine RBC (Auto) 0-4 U Hyaline Cast (Auto) 1-5 U Epithel Cells (Auto) 10-20 H Urine Bacteria (Auto) Negative PG Care Time/CCT Total # of Minutes Spent Total Time Spent with Patient: Total time spent is greater than 50% in coordination of care (as documented) at patient's floor/unit and/or counseling patient: Coding Level of Care Code 19326 Subseq Hosp Care Lvl 2 Diagnoses Pneumonia due to COVID-19 virus U07.1; J12.82 COVID-19 U07.1 Acute respiratory failure with hypoxia J96.01 Metabolic encephalopathy G93.41 Type 2 diabetes mellitus E11.9; Z79.4 Diabetes mellitus complication status: without complication Diabetes mellitus fpc insulin use: with fpc use Dyslipidemia E78.5 Pacemaker Z95.0 Transaminitis R74.01 DVT prophylaxis Z29.9 (1) Type 2 diabetes mellitus Diabetes mellitus complication status: without complication Diabetes mellitus fpc insulin use: with fpc use Qualified Code(s): E11.9 - Type 2 diabetes mellitus without complications; Z79.4 - [employer] customer service (current) use of insulin
[2021-04-18 08:16] LABS: BUN Creatinine Ratio 32.1 (10-20); Calcium 8.4 mg/dl (8.5-10.1); Creatinine Clr Calc Pharmacy 92.7 ml/min; Est GFR (African American) 99.9 ml/min; Est GFR (Non-African American) 86.2 ml/min; Potassium 3.6 mmol/L (3.5-5.1)
[2021-04-18] MEDS ORDERED: INSULIN GLARGINE SOLOSTAR 100 UNITS/ML 3 ML PEN SC SCH (09:00)
[2021-04-18] MEDS: ENOXAPARIN INJ 40 MG/0.4 ML SYR SQ SCH ×2 (09:02→20:46)
[2021-04-18] MEDS: dexAMETHasone 6 MG in SYRINGE 0 ML IV SCH (09:02)
[2021-04-18] MEDS: BENZONATATE 100 MG CAPSULE PO SCH ×3 (09:03→20:45)
[2021-04-18] MEDS: TAMSULOSIN HCL 0.4 MG CAP PO SCH (09:03)
[2021-04-18] MEDS: ASPIRIN 81 MG ECTAB PO SCH (09:04)
[2021-04-18] MEDS: INSULIN GLARGINE SOLOSTAR 100 UNITS/ML 3 ML PEN SC SCH ×2 (09:50→20:47)
[2021-04-18] MEDS: INSULIN ASPART 100 UNITS/ML 3 ML PEN SC SCH ×4 (09:50→20:46)
--- NOTE | 2021-04-18 20:37 | Hospitalist Progress Note ---
Date of Service April 18, 2021 Assessment & Plan (1) Pneumonia due to COVID-19 virus: first dose of dexamethasone was 04/11 - thus, day #8 of IV/PO dexamethasone. cont 10 days since he worsened over the last week and had new O2 requirement at time of this admission. fortunately the O2 has already been weaned off and he has been in RA since yesterday AM. cont supportive care. cont pulmonary toilet. (2) COVID-19: as above unfortunately he is having COVID / hospital delirium, anorexia, failure to thrive these are common in seniors who have dementia and fall ill w/ COVID supportive care (3) Acute respiratory failure with hypoxia: 2nd COVID-19 pneumonia no evidence of complicating CHF or PE IMPROVED/RESOLVED (4) Metabolic encephalopathy: Ongoing. Thus, superimposed delirium on top of baseline dementia. Met. encephalopathy - due to COVID-19 illness. Steroids can contribute to delirium, new environment/hospital psychosis, etc. Supportive care. Avoid benzos/sedatives. (5) Type 2 diabetes mellitus: [id number]=2.6 on 04/12/21. Patient on Metformin and Novolin 70/30 as outpatient Holding metformin Holding 70/30 uncontrolled due to steroids, with lows at times DROP the lantus back to 15 units BID adjust correction/carb coverage w/ novolog (6) Dyslipidemia: on statin recent ast/alt elevated due to COVID-19 these have normalized cont statin (7) Pacemaker: noted interrogation done during recent admission follows with Dr Alexander Yeager, [facility] - [place] pacing at times on monitor (8) Transaminitis: 2nd COVID-19 infection resolved (9) DVT prophylaxis: lovenox 40mg BID - higher dose due to increased risk of VTE w/ COVID daughter extensively updated by phone 04/16/21 and 04/17/21 and today PT and OT consults Admission and Anticipated Discharge Date Admission Date: April 15, 2021 Subjective no events overnight except for ongoing "pleasant" confusion; no agitation eating poorly O2 weaned off yesterday am - no O2 requirement since during the visit he could offer no meaningful history or ROS was cleared for d/c of isolation today by infection control was admitted to hospital by report Review of Systems Respiratory: no dyspnea Cardiovascular: no chest pain Gastrointestinal: no abdominal pain Physical Exam Constitutional: + altered mental status (worse than yesterday ; could not tell me he had COVID); no acute distress ENMT: external ear and nose normal, oropharynx normal Respiratory: no respiratory distress Auscultation: + crackles (bases; no change; airation fair); no wheezes Cardiovascular: Rate/Rhythm: regular rate and regular rhythm Heart Sounds: normal S1 and normal S2 Vessels: posterior tibial pulses present and dorsalis pedis pulses present; no JVD Extremities: no edema Gastrointestinal (Abdomen): normal bowel sounds, soft, nontender, no hepatosplenomegaly Skin: no rashes, warm and dry Psychiatric: Orientation: alert and oriented to person; + not oriented to place and + not oriented to time Results & Data Results & Data ([facility]) Vital Signs (Past 12 Hours) Vital Signs Temp Pulse Resp BP Pulse Ox 04/18/21 19:00 36.5 C 74 20 100/61 92 04/18/21 15:29 36.6 C 71 18 114/73 90 04/18/21 11:39 36.7 C 71 18 126/76 94 04/18/21 09:15 92 Laboratory Results Laboratory Results - last 24 hr 04/17/21 04/18/21 04/18/21 19:40 07:03 08:17 Sodium 138 Potassium 3.6 Chloride 105 Carbon Dioxide 27 Anion Gap 7.0 BUN 24 H Creatinine 0.76 Est Cr Clr Drug Dosing 92.7 Est GFR ( Amer) 99.9 Est GFR (Non-Af Amer) 86.2 BUN/Creatinine Ratio 32.1 H Glucose 66 L POC Glucose 138 H 64 L* Calcium 8.4 L 04/18/21 04/18/21 04/18/21 08:17 08:59 09:43 Sodium Potassium Chloride Carbon Dioxide Anion Gap BUN Creatinine Est Cr Clr Drug Dosing Est GFR ( Amer) Est GFR (Non-Af Amer) BUN/Creatinine Ratio Glucose POC Glucose 65 L* 69 L* 106 H Calcium 04/18/21 04/18/21 04/18/21 12:28 12:40 16:33 Sodium Potassium Chloride Carbon Dioxide Anion Gap BUN Creatinine Est Cr Clr Drug Dosing Est GFR ( Amer) Est GFR (Non-Af Amer) BUN/Creatinine Ratio Glucose POC Glucose 112 H 114 H 197 H Calcium PG Care Time/CCT Total # of Minutes Spent Total Time Spent with Patient: Total time spent is greater than 50% in coord ination of care (as documented) at patient's floor/unit and/or counseling patient: Coding Level of Care Code 97536 Subseq Hosp Care Lvl 2 Diagnoses Pneumonia due to COVID-19 virus U07.1; J12.82 COVID-19 U07.1 Acute respiratory failure with hypoxia J96.01 Metabolic encephalopathy G93.41 Type 2 diabetes mellitus E11.9; Z79.4 Diabetes mellitus complication status: without complication Diabetes mellitus flush tester insulin use: with flush tester use Dyslipidemia E78.5 Pacemaker Z95.0 Transaminitis R74.01 DVT prophylaxis Z29.9 (1) Type 2 diabetes mellitus Diabetes mellitus complication status: without complication Diabetes mellitus senior care insulin use: with senior care use Qualified Code(s): E11.9 - Type 2 diabetes mellitus without complications; Z79.4 - assisted (current) use of insulin
[2021-04-18] MEDS: ATORVASTATIN 40 MG TAB PO SCH (20:45)
[2021-04-18] MEDS: DOCUSATE SODIUM 100 MG CAP PO SCH (20:46)
[2021-04-18] MEDS: CHOLECALCIFEROL 1,000 UNITS 25 MCG TAB PO SCH (20:46)
[2021-04-18] MEDS: FERROUS SULFATE 325 MG TAB PO SCH (20:46)
[2021-04-19 06:35] LABS: Hematocrit (blood only) 38.8 % (42-52); Hemoglobin 13.7 g/dL (14.0-18.0); Mean Corpuscular Hemoglobin 29.6 pg (25-34); Mean Corpuscular Hgb Conc 35.3 g/dL (32-36); Mean Corpuscular Volume 83.8 fL (80-100); Mean Platelet Volume 10.6 fL (7.4-10.4); Platelet Count 243 K/uL (130-400); RDW Coefficient of Variation 14.9 % (11.5-14.5); Red Blood Count 4.63 M/uL (4.7-6.1); White Blood Count 9.31 K/uL (4.8-10.8)
[2021-04-19 07:11] LABS: BUN Creatinine Ratio 30.2 (10-20); Calcium 8.6 mg/dl (8.5-10.1); Creatinine Clr Calc Pharmacy 89.1 ml/min; Est GFR (African American) 98.3 ml/min; Est GFR (Non-African American) 84.8 ml/min; Potassium 3.8 mmol/L (3.5-5.1)
[2021-04-19] MEDS: dexAMETHasone 6 MG in SYRINGE 0 ML IV SCH (08:22)
[2021-04-19] MEDS: ENOXAPARIN INJ 40 MG/0.4 ML SYR SQ SCH ×2 (08:22→20:44)
[2021-04-19] MEDS: INSULIN ASPART 100 UNITS/ML 3 ML PEN SC SCH ×4 (08:23→20:45)
[2021-04-19] MEDS: BENZONATATE 100 MG CAPSULE PO SCH ×3 (08:23→20:48)
[2021-04-19] MEDS: ASPIRIN 81 MG ECTAB PO SCH (08:23)
[2021-04-19] MEDS: INSULIN GLARGINE SOLOSTAR 100 UNITS/ML 3 ML PEN SC SCH ×2 (08:24→20:46)
[2021-04-19] MEDS: ATORVASTATIN 40 MG TAB PO SCH (20:44)
[2021-04-19] MEDS: CHOLECALCIFEROL 1,000 UNITS 25 MCG TAB PO SCH (20:44)
[2021-04-19] MEDS: FERROUS SULFATE 325 MG TAB PO SCH (20:44)
[2021-04-19] MEDS: DOCUSATE SODIUM 100 MG CAP PO SCH (20:48)
--- NOTE | 2021-04-19 23:17 | Hospitalist Progress Note ---
Date of Service April 19, 2021 Assessment & Plan (1) Pneumonia due to COVID-19 virus: resolving. first dose of dexamethasone was 04/11 - thus, day #9 of IV/PO dexamethasone. cont 10 days since he worsened over the last week and had new O2 requirement at time of this admission. fortunately the O2 has already been weaned off and he has been in RA now for about 2 days. cont supportive care. cont pulmonary toilet. (2) COVID-19: as above unfortunately he is having COVID delirium/hospital delirium, some anorexia, some failure to thrive these are common in seniors who have dementia and become sick with COVID continue supportive care continue PT, OT family continues to bring outside food which is more appealing for him of note - now admitted with COVID-19 (3) Acute respiratory failure with hypoxia: 2nd COVID-19 pneumonia no evidence of complicating CHF or PE RESOLVED (4) Metabolic encephalopathy: Ongoing but improved per daughter Emelina. Met. encephalopathy - due to COVID-19 illness. Steroids, new environment/hospital psychosis, etc. likely all contributed to confusion. Supportive care. Avoid benzos/sedatives. (5) Type 2 diabetes mellitus: [id number]=8.6 on 04/12/21. Patient on Metformin and Novolin 70/30 as outpatient Holding metformin Holding 70/30 uncontrolled due to steroids, with lows at times has needed frequent adjustments in lantus and novolog inconsistent eating habits while here coupled with odd times of food consumption of outside food is causing lability (6) Dyslipidemia: on statin recent ast/alt elevated due to COVID-19 these have normalized cont statin (7) Pacemaker: noted interrogation done during recent admission follows with Dr Alexander Yeager, [facility] - [place] pacing at times on monitor (8) Transaminitis: 2nd COVID-19 infection resolved (9) DVT prophylaxis: lovenox 40mg BID - higher dose due to increased risk of VTE w/ COVID daughter extensively updated by phone daily then updated in person at bedside during hospital visiting hours PT and OT consults appreciated; as of 2 days ago can return home with family support, but needs repeat evals to determine if still strong enough to return home Admission and Anticipated Discharge Date Admission Date: April 15, 2021 Subjective tele overnight wnl during my visit pt's daughter was present (Emelina) Emelina brought [employer] for him to eat he ate some of the [place] fries but otherwise appetite is fair at best she confirmed that mental status today is at baseline he could not give meaningful history he did not realize he had COVID nor that he was in hospital could not tell me the year Review of Systems Respiratory: + cough; no dyspnea Cardiovascular: no chest pain Gastrointestinal: no abdominal pain Physical Exam Constitutional: + altered mental status (worse than yesterday ; could not tell me he had COVID); no acute distress ENMT: external ear and nose normal, oropharynx normal Respiratory: no respiratory distress Auscultation: + crackles (bases; no change; airation fair); no wheezes Cardiovascular: Rate/Rhythm: regular rate and regular rhythm Heart Sounds: normal S1 and normal S2 Vessels: posterior tibial pulses present and dorsalis pedis pulses present; no JVD Extremities: no edema Gastrointestinal (Abdomen): normal bowel sounds, soft, nontender, no hepatosplenomegaly Skin: no rashes, warm and dry Psychiatric: Orientation: alert and oriented to person; + not oriented to place and + not oriented to time Results & Data Results & Data ([facility]) Vital Signs (Past 12 Hours) Vital Signs Temp Pulse Pulse Pulse Resp BP BP 04/19/21 23:15 58 L 04/19/21 19:53 36.5 C 75 20 143/79 H 04/19/21 15:42 36.6 C 56 L 18 135/51 L 04/19/21 14:20 73 04/19/21 11:30 36.6 C 77 18 134/76 Pulse Ox 04/19/21 23:15 04/19/21 19:53 92 04/19/21 15:42 94 04/19/21 14:20 04/19/21 11:30 93 Laboratory Results Laboratory Results - last 24 hr 04/19/21 04/19/21 04/19/21 06:05 06:05 08:01 WBC 9.31 RBC 4.63 L Hgb 13.7 L Hct 38.8 L MCV 83.8 MCH 29.6 MCHC 35.3 RDW Std Deviation 46.0 RDW Coeff of Jean Marie 14.9 H Plt Count 243 MPV 10.6 H Sodium 140 Potassium 3.8 Chloride 106 Carbon Dioxide 28 Anion Gap 6.0 BUN 24 H Creatinine 0.79 Est Cr Clr Drug Dosing 89.1 Est GFR ( Amer) 98.3 Est GFR (Non-Af Amer) 84.8 BUN/Creatinine Ratio 30.2 H Glucose 95 POC Glucose 87 Calcium 8.6 AST 34 04/19/21 04/19/21 04/19/21 11:53 16:26 16:28 WBC RBC Hgb Hct MCV MCH MCHC RDW Std Deviation RDW Coeff of Jean Marie Plt Count MPV Sodium Potassium Chloride Carbon Dioxide Anion Gap BUN Creatinine Est Cr Clr Drug Dosing Est GFR ( Amer) Est GFR (Non-Af Amer) BUN/Creatinine Ratio Glucose POC Glucose 115 H 358 H* 327 H* Calcium AST 04/19/21 20:21 WBC RBC Hgb Hct MCV MCH MCHC RDW Std Deviation RDW Coeff of Jean Marie Plt Count MPV Sodium Potassium Chloride Carbon Dioxide Anion Gap BUN Creatinine Est Cr Clr Drug Dosing Est GFR ( Amer) Est GFR (Non-Af Amer) BUN/Creatinine Ratio Glucose POC Glucose 230 H Calcium AST PG Care Time/CCT Total # of Minutes Spent Total Time Spent with Patient: Total time spent is greater than 50% in coordination of care (as documented) at patient's floor/unit and/or counseling patient: Coding Level of Care Code 93152 Subseq Hosp Care Lvl 2 Diagnoses Pneumonia due to COVID-19 virus U07.1; J12.82 COVID-19 U07.1 Acute respiratory failure with hypoxia J96.01 Metabolic encephalopathy G93.41 Type 2 diabetes mellitus E11.9; Z79.4 Diabetes mellitus complication status: without complication Diabetes mellitus roasterman insulin use: with roasterman use Dyslipidemia E78.5 Pacemaker Z95.0 Transaminitis R74.01 DVT prophylaxis Z29.9 (1) Type 2 diabetes mellitus Diabetes mellitus complication status: without complication Diabetes mellitus fpc insulin use: with fpc use Qualified Code(s): E11.9 - Type 2 diabetes mellitus without complications; Z79.4 - penitentiary (current) use of insulin
[2021-04-20] MEDS: dexAMETHasone 6 MG in SYRINGE 0 ML IV SCH (07:59)
[2021-04-20] MEDS: ASPIRIN 81 MG ECTAB PO SCH (07:59)
[2021-04-20] MEDS: ENOXAPARIN INJ 40 MG/0.4 ML SYR SQ SCH ×2 (07:59→20:40)
[2021-04-20] MEDS: TAMSULOSIN HCL 0.4 MG CAP PO SCH (08:00)
[2021-04-20] MEDS: BENZONATATE 100 MG CAPSULE PO SCH ×2 (08:01→14:20)
[2021-04-20] MEDS: INSULIN GLARGINE SOLOSTAR 100 UNITS/ML 3 ML PEN SC SCH (08:01)
[2021-04-20] MEDS: INSULIN ASPART 100 UNITS/ML 3 ML PEN SC SCH ×4 (08:03→20:40)
--- NOTE | 2021-04-20 15:04 | Hospitalist Progress Note ---
Date of Service April 20, 2021 Assessment & Plan (1) COVID-19: Unfortunately he is having COVID delirium/hospital delirium. - Continue supportive care - Continue PT, OT -> Both PT/OT recommended home with help on 04/17 (2) Pneumonia due to COVID-19 virus: Finished dexamethasone on 04/20. - Breathing issues resolving. He is now on room air while at rest. (3) Type 2 diabetes mellitus: A1c was 7.6% on 04/12/2021. Patient on Metformin and Novolin 70/30 as outpatient. - Holding metformin & 70/30 - Glycemic pharmacy consulted - AM sugars still quite low with big jumps with mealtime. (4) Dyslipidemia: - Continue statin (5) Pacemaker: Interrogation done during recent admission. Follows with Alexander Yeager, [facility]. - No inpatient needs (6) DVT prophylaxis: Lovenox 40mg SQ BID Admission and Anticipated Discharge Date Admission Date: April 15, 2021 Subjective Doing well today. He denies any cough. Reports no fevers/chills, chest pain, shortness of breath, abdominal pain, nausea, or vomiting. When asked how long he has been in the hospital, he reports it has been about 2 months. He reports he is in [facility] and does not know the year. However, he does appropriately know his living situation and more distant history. Physical Exam Constitutional: WD/WN, vitals as above Eyes: EOM intact bilaterally; no conjunctival abnormality ENMT: external ear and nose normal, oropharynx normal Neck: trachea midline, no thyromegaly normal visual inspection Respiratory: normal respiratory effort, lungs clear to auscultation no respiratory distress Cardiovascular: RRR, no murmur, no edema Gastrointestinal (Abdomen): Inspection/Auscultation: abdomen normal to inspection; abdomen not distended Musculoskeletal: no cyanosis or clubbing, extremities motor strength 5/5 Skin: no rashes, warm and dry Neurologic: moves all extremities and awake Psychiatric: Orientation: alert, oriented to person and cooperative Results & Data Results & Data ([facility]) Vital Signs (Past 12 Hours) Vital Signs Temp Pulse Pulse Resp BP BP Pulse Ox 04/20/21 14:59 83 04/20/21 11:03 78 20 129/82 91 04/20/21 07:28 36.4 C L 72 18 156/84 H 91 04/20/21 07:07 75 04/20/21 03:30 36.3 C L 87 20 146/79 H 91 PG Care Time/CCT Total # of Minutes Spent Total Time Spent with Patient: Total time spent is greater than 50% in coordination of care (as documented) at patient's floor/unit and/or counseling patient: Coding Level of Care Code 01916 Subseq Hosp Care Lvl 2 Diagnoses COVID-19 U07.1 Pneumonia due to COVID-19 virus U07.1; J12.82 Type 2 diabetes mellitus E11.9; Z79.4 Diabetes mellitus retirement insulin use: with chemistry technical officer use Diabetes mellitus complication status: without complication Dyslipidemia E78.5 Pacemaker Z95.0 DVT prophylaxis Z29.9 (1) Type 2 diabetes mellitus Diabetes mellitus retirement insulin use: with retirement use Diabetes mellitus complication status: without complication Qualified Code(s): E11.9 - Type 2 diabetes mellitus without complications; Z79.4 - dairy technologist (current) use of insulin
[2021-04-20] MEDS: ATORVASTATIN 40 MG TAB PO SCH (20:39)
[2021-04-20] MEDS: CHOLECALCIFEROL 1,000 UNITS 25 MCG TAB PO SCH (20:39)
[2021-04-20] MEDS: FERROUS SULFATE 325 MG TAB PO SCH (20:40)
[2021-04-20] MEDS: DOCUSATE SODIUM 100 MG CAP PO SCH (20:42)
[2021-04-21] MEDS: INSULIN ASPART 100 UNITS/ML 3 ML PEN SC SCH ×4 (07:53→20:53)
[2021-04-21 08:27] LABS: Hematocrit (blood only) 39.6 % (42-52); Hemoglobin 13.9 g/dL (14.0-18.0); Mean Corpuscular Hemoglobin 29.8 pg (25-34); Mean Corpuscular Hgb Conc 35.1 g/dL (32-36); Mean Corpuscular Volume 84.8 fL (80-100); Mean Platelet Volume 10.1 fL (7.4-10.4); Platelet Count 299 K/uL (130-400); RDW Coefficient of Variation 14.8 % (11.5-14.5); RDW Standard Deviation 45.6 fL (36.4-46.3); Red Blood Count 4.67 M/uL (4.7-6.1); White Blood Count 9.71 K/uL (4.8-10.8)
[2021-04-21 08:48] LABS: BUN Creatinine Ratio 25.6 (10-20); Calcium 8.2 mg/dl (8.5-10.1); Creatinine Clr Calc Pharmacy 89.1 ml/min; Est GFR (African American) 98.3 ml/min; Est GFR (Non-African American) 84.8 ml/min; Magnesium 1.9 mg/dl (1.8-2.4); Potassium 3.6 mmol/L (3.5-5.1)
[2021-04-21] MEDS: ENOXAPARIN INJ 40 MG/0.4 ML SYR SQ SCH ×2 (09:24→20:49)
[2021-04-21] MEDS: ASPIRIN 81 MG ECTAB PO SCH (09:24)
--- NOTE | 2021-04-21 20:34 | Hospitalist Progress Note ---
Date of Service April 21, 2021 Assessment & Plan (1) COVID-19: Unfortunately, he is having COVID delirium/hospital delirium. This is likely on top of his memory issues (possible early dementia) already. - Continue supportive care - Continue PT, OT -> Both PT/OT recommended home with help on 04/17. Will get reassessment tomorrow. (2) Pacemaker: Interrogation done during recent admission. Follows with Alexander Yeager, [facility] - [place]. - On 04/21, it was noted that he was having increased tachycardia events. - [employer] rep interrogated the pacer. He was having atrial tachycardia events which the pacer was sensing in the atrium and running appropriate ventricular runs. Then it would reset and go back to sinus. The rep lengthened the PVART which allowed the atria to run a bit faster with the ventricular rate going to his 70 bpm fallback rate. (3) Pneumonia due to COVID-19 virus: Finished dexamethasone on 04/20. - Breathing issues resolving. He is now on room air while at rest. (4) Type 2 diabetes mellitus: A1c was 7.6% on 04/12/2021. Patient on Metformin and Novolin 70/30 as outpatient. - Holding metformin & 70/30 - No long-acting insulin - AM sugars still quite low with big jumps with mealtime. Adjusted sliding scale. (5) Dyslipidemia: - Continue statin (6) DVT prophylaxis: Lovenox 40mg SQ BID Admission and Anticipated Discharge Date Admission Date: April 15, 2021 Subjective More tired today. He wakes up easily, but does appear more drowsy. Reports no fevers/chills, chest pain, shortness of breath, abdominal pain, nausea, or vomiting. Returned to room in the afternoon and met with patient and daughter. Still sleepy, but does easily arouse and respond. Remembered daughter and granddaughter's names. Physical Exam Constitutional: WD/WN, vitals as above Eyes: EOM intact bilaterally; no conjunctival abnormality ENMT: external ear and nose normal, oropharynx normal Neck: trachea midline, no thyromegaly normal visual inspection Respiratory: normal respiratory effort, lungs clear to auscultation no respiratory distress Cardiovascular: RRR, no murmur, no edema Gastrointestinal (Abdomen): Inspection/Auscultation: abdomen normal to inspection; abdomen not distended Musculoskeletal: no cyanosis or clubbing, extremities motor strength 5/5 Skin: no rashes, warm and dry Neurologic: moves all extremities and awake Psychiatric: Orientation: alert, oriented to person and cooperative Results & Data Results & Data ([facility]) Vital Signs (Past 12 Hours) Vital Signs Temp Pulse Pulse Resp BP BP Pulse Ox 04/21/21 19:46 36.7 C 83 16 162/81 H 92 04/21/21 16:23 79 04/21/21 15:09 36.8 C 82 20 137/81 91 04/21/21 11:21 36.7 C 78 18 93/63 L 94 PG Care Time/CCT Total # of Minutes Spent Total Time Spent: 35 Total Time Spent with Patient: Total time spent is greater than 50% in coordination of care (as documented) at patient's floor/unit and/or counseling patient: 35 Coding Level of Care Code 73880 Subseq Hosp Care Lvl 3 Diagnoses COVID-19 U07.1 Pacemaker Z95.0 Pneumonia due to COVID-19 virus U07.1; J12.82 Type 2 diabetes mellitus E11.9; Z79.4 Diabetes mellitus termite control servicer insulin use: with termite control servicer use Diabetes mellitus complication status: without complication Dyslipidemia E78.5 DVT prophylaxis Z29.9 (1) Type 2 diabetes mellitus Diabetes mellitus termite control servicer insulin use: with fpc use Diabetes mellitus complication status: without complication Qualified Code(s): E11.9 - Type 2 diabetes mellitus without complications; Z79.4 - terminal system operator (current) use of insulin
[2021-04-21] MEDS: ATORVASTATIN 40 MG TAB PO SCH (20:49)
[2021-04-21] MEDS: FERROUS SULFATE 325 MG TAB PO SCH (20:49)
[2021-04-21] MEDS: CHOLECALCIFEROL 1,000 UNITS 25 MCG TAB PO SCH (20:50)
[2021-04-21] MEDS: DOCUSATE SODIUM 100 MG CAP PO SCH (20:53)
[2021-04-21] MEDS ORDERED: TAMSULOSIN HCL 0.4 MG CAP PO SCH (21:00)
[2021-04-22 07:46] LABS: Hematocrit (blood only) 39.5 % (42-52); Hemoglobin 13.9 g/dL (14.0-18.0); Mean Corpuscular Hemoglobin 29.6 pg (25-34); Mean Corpuscular Hgb Conc 35.2 g/dL (32-36); Mean Platelet Volume 10.3 fL (7.4-10.4); Platelet Count 300 K/uL (130-400); RDW Coefficient of Variation 14.9 % (11.5-14.5); RDW Standard Deviation 45.6 fL (36.4-46.3); White Blood Count 7.71 K/uL (4.8-10.8)
[2021-04-22 08:02] LABS: Creatinine Clr Calc Pharmacy 103.6 ml/min; Est GFR (African American) 104.5 ml/min; Est GFR (Non-African American) 90.2 ml/min
[2021-04-22] MEDS: ASPIRIN 81 MG ECTAB PO SCH ×2 (08:08→08:11)
[2021-04-22] MEDS: INSULIN ASPART 100 UNITS/ML 3 ML PEN SC SCH ×3 (08:08→17:08)
[2021-04-22] MEDS: ENOXAPARIN INJ 40 MG/0.4 ML SYR SQ SCH (08:09)
[2021-04-22] MEDS ORDERED: NORMOSOL-R 500 ML IV ONE (15:06)
--- NOTE | 2021-04-22 18:33 | Discharge Summary ---
Date of Service April 22, 2021 Admission HPI Per Admitting Provider Lopez Quiroz is an 80yo C male with history of IDDM, HLP and prior CVA. Patient was recently admitted to [facility] from 04/11/21 - 04/14/21 with weakness, fatigue and episodic confusion secondary to Covid-19 infection. His symptoms seemingly started on 04/05/21. Patient was treated with Dexamethasone 6mg daily to be continued until 04/20/21 as well as supplemental oxygen. He was discharged home on room air. Of note, patient was confused on discharge. He returns today with ongoing confusion, lethargy and weakness. His daughter states that his blood pressure was low at home, 90/60 and his pulse ox was 91%. Daughter states that patient has been dealing with episodic drops in blood pressure for 10+ years. He becomes dizzy and confused then dry heaves. He sometimes gets very agitated and confused as well. Patient is confused, unable to answer questions appropriately or provide details of history. He denies pain or difficulty breathing at this time. Er Course: Magnesium, NSS x 500mL Principal Diagnosis Confusion, syncope, weakness Discharge Exam Constitutional WD/WN, vitals as above Eyes EOM intact bilaterally; no conjunctival abnormality ENMT external ear and nose normal, oropharynx normal Neck trachea midline, no thyromegaly normal visual inspection Respiratory normal respiratory effort, lungs clear to auscultation no respiratory distress Cardiovascular RRR, no murmur, no edema Gastrointestinal (Abdomen) Inspection/Auscultation: abdomen normal to inspection; abdomen not distended Musculoskeletal no cyanosis or clubbing, extremities motor strength 5/5 Skin no rashes, warm and dry Neurologic moves all extremities and awake Psychiatric Orientation: alert, oriented to person and cooperative Discharge Data Allergies Allergy/AdvReac Type Severity Reaction Status Date / Time No Known Allergies Allergy Verified 04/15/21 16:59 Consultations 04/15/21 19:49 ED Decision to Admit Stat Ordered Studies 04/15/21 15:30 CT angio head w con Stat CT angio neck with con Stat CT head/brain wo con Stat Hospital Course (1) COVID-19: Unfortunately, he is having COVID delirium/hospital delirium. This is likely on top of his memory issues (possible early dementia) already. Depression playing a role. - Continue supportive care - Continue PT, OT -> Both PT/OT recommended home with help on 04/17. - On 04/22, PT/OT reassessed and felt he did worse. They recommended SNF. However, daughter and I had a long discussion. Mentally, he was exhibiting depressive signs. We agree that he would be better at home, and he does perk up and interact more when his daughter is present. Physically, it is a tough decision. He is quite weak and has needed more assistance the last two days. However, with FELICE hose on and a small bolus of IV fluids, his BP was good (135/85), and he was much more interactive and eager to go home and see his . After long, thorough discussion of pros/cons, she prefers to take him home . She feels he will emotionally recover quickly and that if he is mentally better, he will eat and drink and recover physically quickly as well. I have some concerns for him thriving at home, but agree that if he can manage over the next few days, he might see a faster recovery at home. Emelina and I spent considerable time together, and in the end, she feels it's in his best interest to go home. I assured her we are here if he has trouble at home and cannot cope. (2) Pacemaker: Interrogation done during recent admission. Follows with Alexander Yeager, [facility] - [place]. - On 04/21, it was noted that he was having increased tachycardia events. - [employer] rep interrogated the pacer. He was having atrial tachycardia events which the pacer was sensing in the atrium and running appropriate ventricular runs. Then it would reset and go back to sinus. The rep lengthened the PVART which allowed the atria to run a bit faster with the ventricular rate going to his 70 bpm fallback rate. (3) Pneumonia due to COVID-19 virus: Finished dexamethasone on 04/20. - Breathing issues resolving. He is now on room air while at rest. (4) Type 2 diabetes mellitus: A1c was 7.6% on 04/12/2021. Patient on Metformin and Novolin 70/30 as outpatient. - Holding metformin & 70/30 - No long-acting insulin while inpatient. - On discharge, Emelina and family will adjust his insulin between 50% - 100% depending on how he is eating and his sugar levels. See discharge instructions below. (5) Dyslipidemia: - Continue statin (6) DVT prophylaxis: Lovenox 40mg SQ BID Total Time Total Time Spent Total Time Spent (In Minutes): 35 Discharge Plan Discharge Items Patient Disposition: Home - Self-Care Reason For Visit: COVID-19,WEAKNESS,CONFUSION Discharge Diagnosis: Passing out, weakness, confusion Activity: Resume your previous activity Non-emergency contact: Primary Care Provider Call non-emergency contact if: your symptoms worsen Follow-up/Referrals: Melany Olson MD [Primary Care Provider] - Diet: Carb Consistent or DM2 Addtl Attending Provider Instructions: You were admitted after passing out. Covid can cause changes in blood pressure and heart rate. Also, your pacemaker was running fast. We had the [employer] corrosion engineer change the settings slightly to make it run more smoothly. Please take the Flomax (tamsulosin) in the evening instead of the daytime. You may have to stretch this to every other night if it is still causing blood press ure issues. For your sugars, please cut your morning and evening insulin dose in half (in other words: 5 units in the morning or 10 units at night) if your blood sugar is less than 120 *and* you did not each much food. If you are running ~120, but you ate a good meal, you can probably round up to 15 units in the evening, but stick with 8 units in the morning. If you have a normal sugar (>120) and the meal was good, go with the usual amount of insulin: 10 units in the morning or 23 units at night. Pending Studies at Discharge: No Stand-Alone Forms: My [facility] [employer], Smoking Cessation Medications and DC Order Prescriptions: Continued aspirin [Aspirin Low Dose] 81 mg Tablet,Delayed Release (Dr/Ec) 81 mg PO QAM RF: 0 metformin 1,000 mg Tablet 1,000 mg PO BID RF: 0 vitamin B complex Capsule 1 cap PO QAM RF: 0 atorvastatin [Lipitor] 40 mg Tablet 40 mg PO QPM RF: 0 docusate sodium 100 mg Capsule 100 mg PO QPM RF: 0 donepezil 5 mg tablet 5 mg PO HS RF: 0 multivitamin Tablet 1 tab PO QAM RF: 0 ferrous sulfate [iron] 325 mg (65 mg iron) Tablet 325 mg PO HS RF: 0 cholecalciferol (vitamin D3) [Vitamin D3] 25 mcg (1,000 unit) Capsule 25 mcg PO HS RF: 0 Probiotic 3 billion cell Capsule 0 mmu cells PO HS RF: 0 Changed tamsulosin [Flomax] 0.4 mg Capsule 0.4 mg PO HS Qty: 0 RF: 0 Novolin 70/30 U-100 Insulin 100 unit/mL (70-30) Suspension 10 unit subcut QAM Qty: 0 RF: 0 Novolin 70/30 U-100 Insulin 100 unit/mL (70-30) Suspension 23 unit subcut QPM Qty: 0 RF: 0 Discontinued dexamethasone 6 mg tablet 6 mg PO DAILY Qty: 6 RF: 0 Discharge Orders: Discharge Order (Routine); Ordered 04/22/21 Ordered By: Qamar Palomo Admission Data Admit Date/Time: 04/15/21 20:37 Attending Provider: Qamar Palomo Admit Provider: Mila Ryder Primary Care Provider: Melany Olson Other Providers: Qamar Palomo Other Interventions: Discharge Summary Assessment (RN) Last Done: 04/22/21 17:27 Coding Level of Care Code D/C Day Management >30 mins Diagnoses COVID-19 U07.1 Pacemaker Z95.0 Pneumonia due to COVID-19 virus U07.1; J12.82 Type 2 diabetes mellitus E11.9; Z79.4 Diabetes mellitus manager intermediate insulin use: with manager intermediate use Diabetes mellitus complication status: without complication Dyslipidemia E78.5 DVT prophylaxis Z29.9
[2021-04-22] MEDS ORDERED: DONEPEZIL HCL 5 MG TAB PO SCH (21:00)
== END 2021-04-22 17:30 | disposition home or self-care (01) | DRG 177 ==
LOC: ED 14:50 → SUATTDRO 20:37 → 2N 20:37 → 2W 04-18 18:40

== ENCOUNTER 2021-05-08 13:21 | Observation (INO) ==
[2021-05-08 14:31] LABS: Basophils # (auto) 0.01 K/uL (0-0.2); Basophils % (auto) 0.1 %; Eosinophils # (auto) 0.12 K/uL (0-0.5); Eosinophils % (auto) 1.7 %; Hematocrit (blood only) 40.3 % (42-52); Hemoglobin 13.8 g/dL (14.0-18.0); Immature Granulocytes # (auto) 0.01 K/uL (0.00-0.02); Immature Granulocytes % (auto) 0.1 %; Lymphocytes # (auto) 1.06 K/uL (1.2-3.4); Mean Corpuscular Hemoglobin 30.5 pg (25-34); Mean Corpuscular Hgb Conc 34.2 g/dL (32-36); Mean Corpuscular Volume 89.2 fL (80-100); Mean Platelet Volume 11.1 fL (7.4-10.4); Monocytes # (auto) 0.57 K/uL (0.11-0.59); Monocytes % (auto) 8.1 %; Neutrophils # (auto) 5.31 K/uL (1.4-6.5); Platelet Count 211 K/uL (130-400); RDW Coefficient of Variation 15.7 % (11.5-14.5); Red Blood Count 4.52 M/uL (4.7-6.1); White Blood Count 7.08 K/uL (4.8-10.8)
[2021-05-08] MEDS: SODIUM CHLORIDE 0.9% 500 ML IV SCH ×2 (14:32→18:24)
[2021-05-08 14:39] LABS: Alanine Aminotransferase 31 U/L (12-78); Albumin Level 3.2 gm/dl (3.4-5.0); Aspartate Aminotransferase 20 U/L (15-37); BUN Creatinine Ratio 14.8 (10-20); Blood Urea Nitrogen 13 mg/dl (7-18); Calcium 9.1 mg/dl (8.5-10.1); Carbon Dioxide 26 mmol/L (21-32); Chloride 102 mmol/L (98-107); Creatinine Clr Calc Pharmacy 77.4 ml/min; Est GFR (African American) 91.9 ml/min; Est GFR (Non-African American) 79.3 ml/min; Glucose 145 mg/dl (70-99); Magnesium 1.4 mg/dl (1.8-2.4); Potassium 3.9 mmol/L (3.5-5.1); Sodium 137 mmol/L (136-145)
--- NOTE | 2021-05-08 14:40 | XRay Report ---
XR chest 1V portable CLINICAL HISTORY: SEPSIS COMPARISON STUDY: 04/15/2021 FINDINGS: The heart remains enlarged. There is a left subclavian bipolar central venous pacemaker. Th ere are persistent but improving bibasilar airspace opacities.[ IMPRESSION: 1. Cardiomegaly and persistent but improving bibasilar opacities ACT 112: Negative or not required by law. Electronically signed by: Stevan Hackett M.D. 05/08/2021 2:39 PM
[2021-05-08 14:44] LABS: Albumin Globulin Ratio 0.8 (0.9-2); Alkaline Phosphatase 79 U/L (45-117); Bilirubin,Total 0.5 mg/dl (0.2-1); Globulin 4.1 gm/dl (2.5-4.0); Total Protein 7.3 gm/dl (6.4-8.2); Troponin I < 0.015 ng/ml (0-0.045)
--- NOTE | 2021-05-08 15:11 | CT Scan Report ---
HEAD CT NONCONTRAST CT DOSE: 537.48 mGy.cm HISTORY: weakness TECHNIQUE: Multiaxial CT images of the head were performed without the use of intravenous contrast. A utomated exposure control was utilized for this study. A dose lowering technique was utilized adheri ng to the principles of ALARA. Comparison: Head CT 04/15/2021. Findings: The paranasal sinuses and mastoid air cells are clear. The calvarium and skull base are int act. There is no mass, hematoma, midline shift, acute infarct. White matter hypodensity is nonspecifi c but suggestive of microvascular ischemic change. The ventricles and sulci demonstrate mild age-rela timothy involutional changes. There is an old punctate lacunar infarcts seen within the right cerebellar hemisphere, unchanged. Impression: No significant change compared to the prior study. No acute intracranial abnormality. ACT 112: Negative or not required by law. Electronically signed by: Troy Guevara M.D. 05/08/2021 3:09 PM
[2021-05-08 15:45] LABS: INR 1.1 (0.9-1.1); Partial Thromboplastin Time 25.8 Seconds (21.0-31.0)
[2021-05-08] MEDS ORDERED: MAGNESIUM SULFATE / D5W 1 GM/100 ML BAG IV STA (16:14)
--- NOTE | 2021-05-08 18:02 | History & Physical Report ---
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 fluids when able Check 2D echo Follow orthostatics, if no improvement with hydration would consider midodrine dosing Patient is not on any antihypertensives at this time (2) COVID-19: Show symptoms of 04/05, his first positive Covid test was 04/08 Per CDC guidelines, patient likely does not need to remain in airborne precautions but will defer to institutional policy in this respect Suspect patient will need to be placed in [facility] versus rehab, case management discussed with family (3) Hypomagnesemia: Magnesium was 1.4 on admission lab work Patient is receiving IV magnesium repletion, recheck in the morning (4) Dyslipidemia: Continue atorvastatin 40 mg (5) Type 2 diabetes mellitus: Check hemoglobin A1c Patient is on Novolin 70/30, will continue. Check 3 times daily AC blood sugars consider adjustment of this medication depending on results History of Present Illness Chief Complaint: weakness Primary Care Provider: Melany Olson MD This is an 80-year-old male with past medical history of Covid 19, first diagnosed on 04/08 with multiple hospitalizations that presents today with significant weakness. Patient is asleep during the interview, his daughter was at bedside was able to complete history. Patient was hospitalized here on with weakness that was found to be secondary to COVID-19. He was discharged but returned to the hospital 04/15-04/22 with similar issues of weakness and failure to thrive. It appears that Dr. Palomo care for the patient both times, had a long conversation with the daughter regards to possible transfer to acute rehab as the patient was so weak and not doing well. However, there were concerns regarding his mood and therefore the final decision was made to take the patient home. The daughter reports that the patient seem to be doing better at first after his return home. He was eating and drinking and was able to ambulate a bit with his walker. She was trying to push hydration both with water and some Pedialyte. However, over the past 48 hours she seems to have relapsed. He is much more weak and sleeps much of the time. He gets a somewhat dizzy and more confused with any sort of activity. He also had some minor falls at home. She brought him back to the hospital for further evaluation and reconsideration of possible placement. In the ER, he was found to be mildly hypotensive with a BP of 98/50. Pulse was 63. It was reported to me by the ER physician that he was orthostatic as well and the daughter notes his blood pressure dropped into the mid 80s with standing. The daughter is understandably frustrated with hospital policy as well as with the general global epidemic that is COVID-19. Allergies Allergy/AdvReac Type Severity Reaction Status Date / Time No Known Allergies Allergy Verified 05/08/21 16:20 Home Medications Medication Instructions Recorded Confirmed Type aspirin [Aspirin Low Dose] 81 mg PO QAM 10/02/18 05/08/21 History docusate sodium 100 mg PO QPM 10/02/18 05/08/21 History metformin 1,000 mg PO BID 10/02/18 05/08/21 History vitamin B complex 1 cap PO QAM 10/02/18 05/08/21 History Probiotic 0 mmu cells PO HS 04/11/21 05/08/21 History cholecalciferol (vitamin D3) 25 mcg PO HS 04/11/21 05/08/21 History [Vitamin D3] ferrous sulfate [iron] 325 mg PO HS 04/11/21 05/08/21 History multivitamin 1 tab PO QAM 04/11/21 05/08/21 History donepezil 5 mg PO HS 04/20/21 05/08/21 History Novolin 70/30 U-100 Insulin 10 unit SUBCUT QAM #0 ml 04/22/21 05/08/21 Rx Novolin 70/30 U-100 Insulin 23 unit SUBCUT QPM #0 ml 04/22/21 05/08/21 Rx tamsulosin [Flomax] 0.4 mg PO HS #0 cap 04/22/21 05/08/21 Rx atorvastatin 40 mg 05/08/21 History duloxetine mg PO 05/08/21 History omeprazole 20 mg PO DAILY PRN 05/08/21 05/08/21 History Past Med/Surg History Medical History COVID-19 Dyslipidemia History of stroke Type 2 diabetes mellitus Surgical History History of permanent cardiac pacemaker placement Family History Other No pertinent family history Social History Smoking Status: Never smoker Tobacco Type: Cigarettes Second Hand Exposure: No; Hx Alcohol Use: No Hx Substance Use: No Preferred Language: [place] Communication Ability: Effective Wine Specialist Required: No Beliefs That Will Affect Care: None Current Living Situation: Family Feels Safe at Home: Yes Assistive Devices: Walker Review of Systems Review of Systems: Unobtainable due to cognitive status and Unobtainable due to reduced consciousness Physical Exam Constitutional: + frail appearing; no acute distress Asleep Neck: trachea midline, no thyromegaly Respiratory: normal respiratory effort Auscultation: lungs clear to auscultation bilaterally; no crackles, no rales, no rhonchi and no wheezes Cardiovascular: Rate/Rhythm: regular rate and regular rhythm Heart Sounds: normal S1 and normal S2; no murmur Gastrointestinal (Abdomen): Inspection/Auscultation: abdomen normal to inspection Percussion/Palpation: abdomen soft; no guarding, abdomen not rigid and no hepatosplenomegaly Skin: no rashes, warm and dry Results & Data Results & Data ([facility]) Vital Signs (Past 12 Hours) Vital Signs Temp Pulse Pulse Resp BP BP Pulse Ox 05/08/21 17:18 63 14 96/50 L 92 05/08/21 17:15 65 21 97/50 L 92 05/08/21 17:00 69 18 99/51 L 92 05/08/21 16:45 71 17 103/55 L 91 05/08/21 16:40 74 15 93 05/08/21 16:37 75 15 103/55 L 93 05/08/21 16:36 72 15 103/55 L 92 05/08/21 16:31 65 17 97 05/08/21 16:30 71 14 111/54 L 96 05/08/21 16:20 69 16 91 05/08/21 16:15 71 10 L 119/57 L 92 05/08/21 16:10 76 24 93 05/08/21 16:01 72 13 94 05/08/21 16:00 74 17 125/60 93 05/08/21 15:50 64 15 92 05/08/21 15:45 67 15 122/60 93 05/08/21 15:40 65 16 92 05/08/21 15:31 67 17 92 05/08/21 15:30 65 17 110/61 93 05/08/21 15:20 74 19 93 05/08/21 15:15 65 18 120/68 92 05/08/21 15:10 68 14 93 05/08/21 15:01 66 19 92 05/08/21 15:00 67 20 139/66 93 05/08/21 14:57 73 19 118/61 93 05/08/21 14:30 73 20 124/62 05/08/21 14:15 64 16 119/61 91 05/08/21 14:00 67 15 113/59 L 91 05/08/21 13:54 68 17 112/58 L 05/08/21 13:46 76 17 97/59 L 05/08/21 13:25 36.5 C 81 21 103/[address] NON[address]AST CT DOSE: 537.48 mGy.cm HISTORY: weakness TECHNIQUE: Multiaxial CT images of the head were performed without the use of intravenous contrast. Automated exposure control was utilized for this study. A dose lowering technique was utilized adhering to the principles of ALARA. Comparison: Head CT 04/15/2021. Findings: The paranasal sinuses and mastoid air cells are clear. The calvarium and skull base are intact. There is no mass, hematoma, midline shift, acute infarct. White matter hypodensity is nonspecific but suggestive of microvascular ischemic change. The ventricles and sulci demonstrate mild age-related involutional changes. There is an old punctate lacunar infarcts seen within the right cerebellar hemisphere, unchanged. Impression: No significant change compared to the prior study. No acute intracranial abnormality. PG Care Time/CCT Total # of Minutes Spent Total Time Spent with Patient: Total time spent is greater than 50% in coordination of care (as documented) at patient's floor/unit and/or counseling patient: Coding Level of Care Code 21609 OBS Care - Level 3 Diagnoses Weakness generalized R53.1 COVID-19 U07.1 Hypomagnesemia E83.42 Dyslipidemia E78.5 Type 2 diabetes mellitus E11.9; Z79.4 Diabetes mellitus halfway insulin use: with halfway use Diabetes mellitus complication status: without complication (1) Type 2 diabetes mellitus Diabetes mellitus terminal make up operator insulin use: with halfway use Diabetes mellitus complication status: without complication Qualified Code(s): E11.9 - Type 2 diabetes mellitus without complications; Z79.4 - longterm (current) use of insulin
--- NOTE | 2021-05-08 19:10 | Emergency Department Note ---
History of Present Illness General Chief complaint: Weakness Stated complaint: WEAKNESS, FALLS Time Seen by Provider: 05/08/21 14:02 Source: patient and family (Daughter who is at the bedside) Mode of arrival: EMS Limitations: other (Does have some baseline dementia) History of Present Illness This patient comes in after being weak. He does have some baseline dementia but lives at home he fell 3 times in the bathroom today. He denies any complaints he does not think he hit his head. He did have Covid at the beginning of January and was hospitalized for several days. Tested positive twice. All other family numbers have tested negative according to the daughter. He has had no blood or melena in his stool. no chest pain or shortness breath or was no syncope. He fell because he may have tripped but he is really unable to give any history. The daughter told me that her thought that he was weak in the left leg and the right eye looks fine at 1 point but this seems to be improved at present he denies any trouble speaking or swallowing or change in vision. No recent fever chills or cough Home Medications Medication Instructions Recorded Confirmed Type aspirin [Aspirin Low Dose] 81 mg PO QAM 10/02/18 05/08/21 History docusate sodium 100 mg PO QPM 10/02/18 05/08/21 History metformin 1,000 mg PO BID 10/02/18 05/08/21 History vitamin B complex 1 cap PO QAM 10/02/18 05/08/21 History Probiotic 0 mmu cells PO HS 04/11/21 05/08/21 History cholecalciferol (vitamin D3) 25 mcg PO HS 04/11/21 05/08/21 History [Vitamin D3] ferrous sulfate [iron] 325 mg PO HS 04/11/21 05/08/21 History multivitamin 1 tab PO QAM 04/11/21 05/08/21 History donepezil 5 mg PO HS 04/20/21 05/08/21 History Novolin 70/30 U-100 Insulin 10 unit SUBCUT QAM #0 ml 04/22/21 05/08/21 Rx Novolin 70/30 U-100 Insulin 23 unit SUBCUT QPM #0 ml 04/22/21 05/08/21 Rx tamsulosin [Flomax] 0.4 mg PO HS #0 cap 04/22/21 05/08/21 Rx atorvastatin 40 mg PO DAILY 05/08/21 05/08/21 History duloxetine 30 mg PO DAILY 05/08/21 05/08/21 History omeprazole 20 mg PO DAILY PRN 05/08/21 05/08/21 History Allergies Allergy/AdvReac Type Severity Reaction Status Date / Time No Known Allergies Allergy Verified 05/08/21 16:20 Past Med/Surg History Medical History COVID-19 Dyslipidemia History of stroke Type 2 diabetes mellitus Surgical History History of permanent cardiac pacemaker placement Family History Other No pertinent family history Social History Smoking Status: Never smoker Tobacco Type: Cigarettes Second Hand Exposure: No; Hx Alcohol Use: No Hx Substance Use: No Preferred Language: Danish Communication Ability: Effective Quality Improvement Coordinator (Rn) Required: No Beliefs That Will Affect Care: None Current Living Situation: Family Feels Safe at Home: Yes Assistive Devices: Walker Review of Systems A total of 10 systems reviewed and were otherwise negative Physical Exam Vital Signs Vital Signs - 24 hr 05/08/21 13:25 05/08/21 13:32 05/08/21 13:46 Temperature 36.5 C Temperature Source Oral Pulse Rate - Lying Pulse Rate - Sitting Pulse Rate - Standing Pulse Rate 81 76 Pulse Rate [Right Finger] Pulse Rate from SpO2 Sensor 80 Pulse Rhythm Regular Pulse Strength Normal Respiratory Rate 21 17 Respiratory Effort / Characteristics Non-Labored Spontaneous Nasal Congestion Respiratory Depth Normal Blood Pressure - Lying Blood Pressure - Sitting Blood Pressure- Standing Blood Pressure 103/74 97/59 L Blood Pressure [Right Arm] Blood Pressure Mean 83 71 Blood Pressure Mean [Right Arm] Blood Pressure Position Sitting Pulse Oximetry 90 Oxygen Delivery Method Room Air Room Air Sepsis Recent Fever Within 48 Hours No Sepsis New/Unexplained Change in Mental Status No Sepsis Action Taken by Nursing No Action Required 05/08/21 13:54 05/08/21 14:00 05/08/21 14:15 Temperature Temperature Source Pulse Rate - Lying Pulse Rate - Sitting Pulse Rate - Standing Pulse Rate 68 67 64 Pulse Rate [Right Finger] Pulse Rate from SpO2 Sensor 65 66 Pulse Rhythm Pulse Strength Respiratory Rate 17 15 16 Respiratory Effort / Characteristics Respiratory Depth Blood Pressure - Lying Blood Pressure - Sitting Blood Pressure- Standing Blood Pressure 112/58 L 113/59 L 119/61 Blood Pressure [Right Arm] Blood Pressure Mean 76 77 80 Blood Pressure Mean [Right Arm] Blood Pressure Position Pulse Oximetry 91 91 Oxygen Delivery Method Sepsis Recent Fever Within 48 Hours Sepsis New/Unexplained Change in Mental Status Sepsis Action Taken by Nursing 05/08/21 14:18 05/08/21 14:19 05/08/21 14:30 Temperature Temperature Source Pulse Rate - Lying Pulse Rate - Sitting Pulse Rate - Standing Pulse Rate 73 Pulse Rate [Right Finger] Pulse Rate from SpO2 Sensor Pulse Rhythm Pulse Strength Respiratory Rate 20 Respiratory Effort / Characteristics Non-Labored Spontaneous Respiratory Depth Blood Pressure - Lying Blood Pressure - Sitting Blood Pressure- Standing Blood Pressure 124/62 Blood Pressure [Right Arm] Blood Pressure Mean 82 Blood Pressure Mean [Right Arm] Blood Pressure Position Pulse Oximetry Oxygen Delivery Method Room Air Sepsis Recent Fever Within 48 Hours Sepsis New/Unexplained Change in Mental Status Sepsis Action Taken by Nursing 05/08/21 14:57 05/08/21 14:58 05/08/21 15:00 Temperature Temperature Source Pulse Rate - Lying 74 Pulse Rate - Sitting 81 Pulse Rate - Standing 88 Pulse Rate 73 67 Pulse Rate [Right Finger] Pulse Rate from SpO2 Sensor 73 67 Pulse Rhythm Pulse Strength Respiratory Rate 19 20 Respiratory Effort / Characteristics Respiratory Depth Blood Pressure - Lying 125/85 Blood Pressure - Sitting 97/49 L Blood Pressure- Standing 79/53 L Blood Pressure 118/61 139/66 Blood Pressure [Right Arm] Blood Pressure Mean 80 90 Blood Pressure Mean [Right Arm] Blood Pressure Position Pulse Oximetry 93 93 Oxygen Delivery Method Sepsis Recent Fever Within 48 Hours Sepsis New/Unexplained Change in Mental Status Sepsis Action Taken by Nursing 05/08/21 15:01 05/08/21 15:10 05/08/21 15:15 Temperature Temperature Source Pulse Rate - Lying Pulse Rate - Sitting Pulse Rate - Standing Pulse Rate 66 68 65 Pulse Rate [Right Finger] Pulse Rate from SpO2 Sensor 65 68 66 Pulse Rhythm Pulse Strength Respiratory Rate 19 14 18 Respiratory Effort / Characteristics Respiratory Depth Blood Pressure - Lying Blood Pressure - Sitting Blood Pressure- Standing Blood Pressure 120/68 Blood Pressure [Right Arm] Blood Pressure Mean 85 Blood Pressure Mean [Right Arm] Blood Pressure Position Pulse Oximetry 92 93 92 Oxygen Delivery Method Sepsis Recent Fever Within 48 Hours Sepsis New/Unexplained Change in Mental Status Sepsis Action Taken by Nursing 05/08/21 15:20 05/08/21 15:30 05/08/21 15:31 Temperature Temperature Source Pulse Rate - Lying Pulse Rate - Sitting Pulse Rate - Standing Pulse Rate 74 65 67 Pulse Rate [Right Finger] Pulse Rate from SpO2 Sensor 73 65 68 Pulse Rhythm Pulse Strength Respiratory Rate 19 17 17 Respiratory Effort / Characteristics Respiratory Depth Blood Pressure - Lying Blood Pressure - Sitting Blood Pressure- Standing Blood Pressure 110/61 Blood Pressure [Right Arm] Blood Pressure Mean 77 Blood Pressure Mean [Right Arm] Blood Pressure Position Pulse Oximetry 93 93 92 Oxygen Delivery Method Sepsis Recent Fever Within 48 Hours Sepsis New/Unexplained Change in Mental Status Sepsis Action Taken by Nursing 05/08/21 15:40 05/08/21 15:45 05/08/21 15:50 Temperature Temperature Source Pulse Rate - Lying Pulse Rate - Sitting Pulse Rate - Standing Pulse Rate 65 67 64 Pulse Rate [Right Finger] Pulse Rate from SpO2 Sensor 66 68 64 Pulse Rhythm Pulse Strength Respiratory Rate 16 15 15 Respiratory Effort / Characteristics Respiratory Depth Blood Pressure - Lying Blood Pressure - Sitting Blood Pressure- Standing Blood Pressure 122/60 Blood Pressure [Right Arm] Blood Pressure Mean 80 Blood Pressure Mean [Right Arm] Blood Pressure Position Pulse Oximetry 92 93 92 Oxygen Delivery Method Sepsis Recent Fever Within 48 Hours Sepsis New/Unexplained Change in Mental Status Sepsis Action Taken by Nursing 05/08/21 16:00 05/08/21 16:01 05/08/21 16:10 Temperature Temperature Source Pulse Rate - Lying Pulse Rate - Sitting Pulse Rate - Standing Pulse Rate 74 72 76 Pulse Rate [Right Finger] Pulse Rate from SpO2 Sensor 74 73 75 Pulse Rhythm Pulse Strength Respiratory Rate 17 13 24 Respiratory Effort / Characteristics Respiratory Depth Blood Pressure - Lying Blood Pressure - Sitting Blood Pressure- Standing Blood Pressure 125/60 Blood Pressure [Right Arm] Blood Pressure Mean 81 Blood Pressure Mean [Right Arm] Blood Pressure Position Pulse Oximetry 93 94 93 Oxygen Delivery Method Sepsis Recent Fever Within 48 Hours Sepsis New/Unexplained Change in Mental Status Sepsis Action Taken by Nursing 05/08/21 16:15 05/08/21 16:20 05/08/21 16:30 Temperature Temperature Source Pulse Rate - Lying Pulse Rate - Sitting Pulse Rate - Standing Pulse Rate 71 69 71 Pulse Rate [Right Finger] Pulse Rate from SpO2 Sensor 71 70 71 Pulse Rhythm Pulse Strength Respiratory Rate 10 L 16 14 Respiratory Effort / Characteristics Respiratory Depth Blood Pressure - Lying Blood Pressure - Sitting Blood Pressure- Standing Blood Pressure 119/57 L 111/54 L Blood Pressure [Right Arm] Blood Pressure Mean 77 73 Blood Pressure Mean [Right Arm] Blood Pressure Position Pulse Oximetry 92 91 96 Oxygen Delivery Method Sepsis Recent Fever Within 48 Hours Sepsis New/Unexplained Change in Mental Status Sepsis Action Taken by Nursing 05/08/21 16:31 05/08/21 16:36 05/08/21 16:37 Temperature Temperature Source Pulse Rate - Lying Pulse Rate - Sitting Pulse Rate - Standing Pulse Rate 65 75 Pulse Rate [Right Finger] 72 Pulse Rate from SpO2 Sensor 64 74 Pulse Rhythm Pulse Strength Respiratory Rate 17 15 15 Respiratory Effort / Characteristics Non-Labored Respiratory Depth Normal Blood Pressure - Lying Blood Pressure - Sitting Blood Pressure- Standing Blood Pressure 103/55 L Blood Pressure [Right Arm] 103/55 L Blood Pressure Mean 71 Blood Pressure Mean [Right Arm] 71 Blood Pressure Position Pulse Oximetry 97 92 93 Oxygen Delivery Method Room Air Sepsis Recent Fever Within 48 Hours Sepsis New/Unexplained Change in Mental Status Sepsis Action Taken by Nursing 05/08/21 16:40 05/08/21 16:45 05/08/21 17:00 Temperature Temperature Source Pulse Rate - Lying Pulse Rate - Sitting Pulse Rate - Standing Pulse Rate 74 71 69 Pulse Rate [Right Finger] Pulse Rate from SpO2 Sensor 73 71 70 Pulse Rhythm Pulse Strength Respiratory Rate 15 17 18 Respiratory Effort / Characteristics Respiratory Depth Blood Pressure - Lying Blood Pressure - Sitting Blood Pressure- Standing Blood Pressure 103/55 L 99/51 L Blood Pressure [Right Arm] Blood Pressure Mean 71 67 Blood Pressure Mean [Right Arm] Blood Pressure Position Pulse Oximetry 93 91 92 Oxygen Delivery Method Sepsis Recent Fever Within 48 Hours Sepsis New/Unexplained Change in Mental Status Sepsis Action Taken by Nursing 05/08/21 17:15 05/08/21 17:18 Temperature Temperature Source Pulse Rate - Lying Pulse Rate - Sitting Pulse Rate - Standing Pulse Rate 65 63 Pulse Rate [Right Finger] Pulse Rate from SpO2 Sensor 66 64 Pulse Rhythm Pulse Strength Respiratory Rate 21 14 Respiratory Effort / Characteristics Respiratory Depth Blood Pressure - Lying Blood Pressure - Sitting Blood Pressure- Standing Blood Pressure 97/50 L 96/50 L Blood Pressure [Right Arm] Blood Pressure Mean 65 65 Blood Pressure Mean [Right Arm] Blood Pressure Position Pulse Oximetry 92 92 Oxygen Delivery Method Sepsis Recent Fever Within 48 Hours Sepsis New/Unexplained Change in Mental Status Sepsis Action Taken by Nursing General: Well developed well nourished older male who appears in no acute distress, breathing comfortably on room air. Normal speech. He is alert to pe rson and place but not date HEENT: Normal cephalic atraumatic. Pupils are equal round and reactive to light. Extraocular movements are intact. Oropharynx is pink with moist mucous membranes. No swelling of the mouth lips or tongue. Neck: Supple with a midline trachea. No meningeal signs or stiffness, no JVD or bruits. No Stridor. No nystagmus. Chest: Clear to auscultation bilaterally. No wheezes or rhonchi. No increased work of breathing. Heart: Regular rate and rhythm without murmurs or gallops. Abdomen: Soft nontender, nondistended without rebound guarding or rigidity. Extremities: No cyanosis clubbing or edema. No calf tenderness or assymetry Spine/Back. Non tender to palpation. No CVA tenderness Skin: Good turgor without rashes. Neurologic exam: Cranial nerves two through 12 are intact. Motor and sensation are intact and symmetrical throughout. No pronator drift. Course Administered Medications Sodium Chloride (Nss) 500 mls @ 125 mls/hr IV .Q4H [facility] Stop: 06/07/21 14:14 Last Admin: 05/08/21 18:24 Dose: 125 mls/hr Documented by: [id number] Infusion: 05/08/21 18:24 Dose: 125 mls/hr Documented by: [id number] Admin: 05/08/21 14:32 Dose: 125 mls/hr Documented by: [id number] Discontinued Medications Magnesium Sulfate/Dextrose (Magnesium Sulfate / D5w) 1 gm in 100 mls @ 100 mls/hr IV NOW [facility] Stop: 05/08/21 17:13 Last Infusion: 05/08/21 17:36 Dose: 0 mls/hr Documented by: [id number] Admin: 05/08/21 16:36 Dose: 100 mls/hr Documented by: [id number] Medical Decision Making Differential Diagnosis Dehydration, arrhythmia, syncope, fall, trauma, intracranial process, elect rolyte or metabolic abnormality, anemia, Covid Medical Records Attestation: I reviewed the patient's medical records. Home Medications Current Medication List: was personally reviewed by me Laboratory Data Attestation: I reviewed the patient's lab results. Result diagrams: 05/08/21 13:57 05/08/21 13:57 Lab Results 05/08/21 05/08/21 05/08/21 Range/Units 13:57 13:57 13:57 WBC 7.08 (4.8-10.8) K/uL RBC 4.52 L (4.7-6.1) M/uL Hgb 13.8 L (14.0-18.0) g/dL Hct 40.3 L (42-52) % MCV 89.2 (80-100) fL MCH 30.5 (25-34) pg MCHC 34.2 (32-36) g/dL RDW Std Deviation 51.0 H (36.4-46.3) fL RDW Coeff of Jean Marie 15.7 H (11.5-14.5) % Plt Count 211 (130-400) K/uL MPV 11.1 H (7.4-10.4) fL Immature Gran % (Auto) 0.1 % Neut % (Auto) 75.0 % Lymph % (Auto) 15.0 % Roosevelt % (Auto) 8.1 % Eos % (Auto) 1.7 % Baso % (Auto) 0.1 % Neut # (Auto) 5.31 (1.4-6.5) K/uL Lymph # (Auto) 1.06 L (1.2-3.4) K/uL Roosevelt # (Auto) 0.57 (0.11-0.59) K/uL Eos # (Auto) 0.12 (0-0.5) K/uL Baso # (Auto) 0.01 (0-0.2) K/uL Immature Gran # (Auto) 0.01 (0.00-0.02) K/uL PT (9.0-12.0) Seconds INR (0.9-1.1) APTT (21.0-31.0) Seconds PTT Ratio Sodium 137 (136-145) mmol/L Potassium 3.9 (3.5-5.1) mmol/L Chloride 102 (98-107) mmol/L Carbon Dioxide 26 (21-32) mmol/L Anion Gap 9.0 (3-11) BUN 13 (7-18) mg/dl Creatinine 0.91 (0.6-1.4) mg/dl Est Cr Clr Drug Dosing 77.4 ml/min Est GFR ( Amer) 91.9 ml/min Est GFR (Non-Af Amer) 79.3 ml/min BUN/Creatinine Ratio 14.8 (10-20) Glucose 145 H (70-99) mg/dl Lactate (0.4-2.0) mmol/L Calcium 9.1 (8.5-10.1) mg/dl Magnesium 1.4 L (1.8-2.4) mg/dl Total Bilirubin 0.5 (0.2-1) mg/dl AST 20 (15-37) U/L ALT 31 (12-78) U/L Alkaline Phosphatase 79 (45-117) U/L Troponin I < 0.015 (0-0.045) ng/ml Total Protein 7.3 (6.4-8.2) gm/dl Albumin 3.2 L (3.4-5.0) gm/dl Globulin 4.1 H (2.5-4.0) gm/dl Albumin/Globulin Ratio 0.8 L (0.9-2) Procalcitonin < 0.05 (0-0.5) ng/ml COVID-19 Eval Order SARS-CoV-2 (PCR) (Negative) 05/08/21 05/08/21 05/08/21 Range/Units 14:25 14:25 15:18 WBC (4.8-10.8) K/uL RBC (4.7-6.1) M/uL Hgb (14.0-18.0) g/dL Hct (42-52) % MCV (80-100) fL MCH (25-34) pg MCHC (32-36) g/dL RDW Std Deviation (36.4-46.3) fL RDW Coeff of Jean Marie (11.5-14.5) % Plt Count (130-400) K/uL MPV (7.4-10.4) fL Immature Gran % (Auto) % Neut % (Auto) % Lymph % (Auto) % Roosevelt % (Auto) % Eos % (Auto) % Baso % (Auto) % Neut # (Auto) (1.4-6.5) K/uL Lymph # (Auto) (1.2-3.4) K/uL Roosevelt # (Auto) (0.11-0.59) K/uL Eos # (Auto) (0-0.5) K/uL Baso # (Auto) (0-0.2) K/uL Immature Gran # (Auto) (0.00-0.02) K/uL PT 11.0 (9.0-12.0) Seconds INR 1.1 (0.9-1.1) APTT 25.8 (21.0-31.0) Seconds PTT Ratio 1.0 Sodium (136-145) mmol/L Potassium (3.5-5.1) mmol/L Chloride (98-107) mmol/L Carbon Dioxide (21-32) mmol/L Anion Gap (3-11) BUN (7-18) mg/dl Creatinine (0.6-1.4) mg/dl Est Cr Clr Drug Dosing ml/min Est GFR ( Amer) ml/min Est GFR (Non-Af Amer) ml/min BUN/Creatinine Ratio (10-20) Glucose (70-99) mg/dl Lactate (0.4-2.0) mmol/L Calcium (8.5-10.1) mg/dl Magnesium (1.8-2.4) mg/dl Total Bilirubin (0.2-1) mg/dl AST (15-37) U/L ALT (12-78) U/L Alkaline Phosphatase (45-117) U/L Troponin I (0-0.045) ng/ml Total Protein (6.4-8.2) gm/dl Albumin (3.4-5.0) gm/dl Globulin (2.5-4.0) gm/dl Albumin/Globulin Ratio (0.9-2) Procalcitonin (0-0.5) ng/ml COVID-19 Eval Order Covid19 at [facility] SARS-CoV-2 (PCR) POSITIVE A* (Negative) 05/08/21 Range/Units 15:18 WBC (4.8-10.8) K/uL RBC (4.7-6.1) M/uL Hgb (14.0-18.0) g/dL Hct (42-52) % MCV (80-100) fL MCH (25-34) pg MCHC (32-36) g/dL RDW Std Deviation (36.4-46.3) fL RDW Coeff of Jean Marie (11.5-14.5) % Plt Count (130-400) K/uL MPV (7.4-10.4) fL Immature Gran % (Auto) % Neut % (Auto) % Lymph % (Auto) % Roosevelt % (Auto) % Eos % (Auto) % Baso % (Auto) % Neut # (Auto) (1.4-6.5) K/uL Lymph # (Auto) (1.2-3.4) K/uL Roosevelt # (Auto) (0.11-0.59) K/uL Eos # (Auto) (0-0.5) K/uL Baso # (Auto) (0-0.2) K/uL Immature Gran # (Auto) (0.00-0.02) K/uL PT (9.0-12.0) Seconds INR (0.9-1.1) APTT (21.0-31.0) Seconds PTT Ratio Sodium (136-145) mmol/L Potassium (3.5-5.1) mmol/L Chloride (98-107) mmol/L Carbon Dioxide (21-32) mmol/L Anion Gap (3-11) BUN (7-18) mg/dl Creatinine (0.6-1.4) mg/dl Est Cr Clr Drug Dosing ml/min Est GFR ( Amer) ml/min Est GFR (Non-Af Amer) ml/min BUN/Creatinine Ratio (10-20) Glucose (70-99) mg/dl Lactate 1.7 (0.4-2.0) mmol/L Calcium (8.5-10.1) mg/dl Magnesium (1.8-2.4) mg/dl Total Bilirubin (0.2-1) mg/dl AST (15-37) U/L ALT (12-78) U/L Alkaline Phosphatase (45-117) U/L Troponin I (0-0.045) ng/ml Total Protein (6.4-8.2) gm/dl Albumin (3.4-5.0) gm/dl Globulin (2.5-4.0) gm/dl Albumin/Globulin Ratio (0.9-2) Procalcitonin (0-0.5) ng/ml COVID-19 Eval Order SARS-CoV-2 (PCR) (Negative) Imaging Data Attestation: I personally reviewed and interpreted this imaging study as follows: My Impression: Chest x-ray cardiomegaly without acute failure seen. Radiologist's Impression: Chest X-Ray 05/08/21 14:14 XR chest 1V portable CLINICAL HISTORY: SEPSIS COMPARISON STUDY: 04/15/2021 FINDINGS: The heart remains enlarged. There is a left subclavian bipolar central venous pacemaker. There are persistent but improving bibasilar airspace opacities.[ IMPRESSION: 1. Cardiomegaly and persistent but improving bibasilar opacities ACT 112: Negative or not required by law. Electronically signed by: Stevan Hackett M.D. 05/08/2021 2:[address] 05/08/21 14:[address] DOSE: 537.48 mGy.cm HISTORY: weakness TECHNIQUE: Multiaxial CT images of the head were performed without the use of intravenous contrast. Automated exposure control was utilized for this study. A dose lowering technique was utilized adhering to the principles of ALARA. Comparison: Head CT 04/15/2021. Findings: The paranasal sinuses and mastoid air cells are clear. The calvarium and skull base are intact. There is no mass, hematoma, midline shift, acute infarct. White matter hypodensity is nonspecific but suggestive of microvascular ischemic change. The ventricles and sulci demonstrate mild age-related involutional changes. There is an old punctate lacunar infarcts seen within the right cerebellar hemisphere, unchanged. Impression: No significant change compared to the prior study. No acute intracranial abnormality. ACT 112: Negative or not required by law. Electronically signed by: Troy Guevara M.D. 05/08/2021 3:09 PM ECG Data Attestation: I personally reviewed and interpreted this ECG as follows: Indication: + syncope and + weakness Rate (beats per minute): 81 Rhythm: + other (Ventricular paced rhythm) ECG Intervals/blocks: + IVCD ECG [place]: + Normal ECG ST segments: + Normal ST segments ECG Findings: no PACs and no PVCs Comparison ECG Date: from (04-15-2021. Paced rhythm replaces normal sinus) MDM Narrative This patient comes in as described above. He had [address] weak and fell. He had some dehydration and here. EKG shows a paced rhythm I did order for his pacemaker to be interrogated as well this is pending. No fever or white count suggest infection. He has no focal neurologic deficits at present. He has no significant electrolyte or metabolic abnormalities. I talked to the daughter at length who says that he gets very weak when he gets up and down we did orthostatics and was he was orthostatic by numbers. His Covid test also came back positive. He will be admitted for further treatment and evaluation and hydration. I have consulted the any hospitalist for this. Continuous cardiac monitoring: Orders placed in EMR for continuous cardiac monitoring. The patient noted be in a paced rhythm with a rate of 65. Impression & Plan Weakness, SARS-CoV-2 positive, Type 2 diabetes mellitus, Pacemaker, Orthostatic dizziness, Frequent falls Discharge Plan Visit Data Chief Complaint: Weakness Stated Complaint: WEAKNESS, FALLS ED Provider: Fracisco Croft Discharge Problem: Weakness, SARS-CoV-2 positive, Type 2 diabetes mellitus, Pacemaker, Orthostatic dizziness, Frequent falls Forms Stand Alone Forms: My [facility] Prescriptions Prescriptions: No Action aspirin [Aspirin Low Dose] 81 mg Tablet,Delayed Release (Dr/Ec) 81 mg PO QAM RF: 0 metformin 1,000 mg Tablet 1,000 mg PO BID RF: 0 vitamin B complex Capsule 1 cap PO QAM RF: 0 docusate sodium 100 mg Capsule 100 mg PO QPM RF: 0 donepezil 5 mg tablet 5 mg PO HS RF: 0 tamsulosin [Flomax] 0.4 mg Capsule 0.4 mg PO HS Qty: 0 RF: 0 Novolin 70/30 U-100 Insulin 100 unit/mL (70-30) Suspension 10 unit subcut QAM Qty: 0 RF: 0 Novolin 70/30 U-100 Insulin 100 unit/mL (70-30) Suspension 23 unit subcut QPM Qty: 0 RF: 0 multivitamin Tablet 1 tab PO QAM RF: 0 ferrous sulfate [iron] 325 mg (65 mg iron) Tablet 325 mg PO HS RF: 0 cholecalciferol (vitamin D3) [Vitamin D3] 25 mcg (1,000 unit) Capsule 25 mcg PO HS RF: 0 Probiotic 3 billion cell Capsule 0 mmu cells PO HS RF: 0 omeprazole 20 mg capsule,delayed release(DR/EC) 20 mg PO DAILY PRN (Reason: gerd) RF: 0 atorvastatin 40 mg tablet 40 mg PO DAILY RF: 0 duloxetine 30 mg capsule,delayed release(DR/EC) 30 mg PO DAILY RF: 0 Discharge Problem: Type 2 diabetes mellitus Qualifiers: Diabetes mellitus chcf insulin use: without chcf use Diabetes mellitus complication status: without complication Qualified Code(s): E11.9 - Type 2 diabetes mellitus without complications
[2021-05-08] MEDS ORDERED: ACETAMINOPHEN 325 MG TAB PO PRN (20:13)
[2021-05-08] MEDS ORDERED: CARBOHYDRATES FOR HYPOGLYCEMIA PO PRN (20:13)
[2021-05-08] MEDS ORDERED: ONDANSETRON INJ 2 MG/ML 2 ML VIAL IV PRN (20:13)
[2021-05-08] MEDS ORDERED: GLUCOSE 40% GEL 15 GM TUBE PO PRN (20:13)
[2021-05-08] MEDS ORDERED: DEXTROSE 50% 50 ML SYRINGE IV PRN (20:13)
[2021-05-08] MEDS ORDERED: GLUCAGON FOR INJ 1 MG VIAL SQ PRN (20:13)
[2021-05-08] MEDS ORDERED: GLUCOSE 10 TABS/TUBE PO PRN (20:13)
[2021-05-08] MEDS ORDERED: PANTOprazole 40 MG TAB PO PRN (20:27)
[2021-05-08] MEDS: TAMSULOSIN HCL 0.4 MG CAP PO SCH (21:12)
[2021-05-08] MEDS: FERROUS SULFATE 325 MG TAB PO SCH (21:12)
[2021-05-08] MEDS: ENOXAPARIN INJ 40 MG/0.4 ML SYR SQ SCH (21:12)
[2021-05-08] MEDS: metFORMIN HCL 500 MG TAB PO SCH (21:12)
[2021-05-08] MEDS: CHOLECALCIFEROL 1,000 UNITS 25 MCG TAB PO SCH (21:12)
[2021-05-08] MEDS: DOCUSATE SODIUM 100 MG CAP PO SCH (21:12)
[2021-05-08] MEDS: DONEPEZIL HCL 5 MG TAB PO SCH (21:12)
[2021-05-08] MEDS: SODIUM CHLORIDE 0.9% 1000ML 1,000 ML IV SCH (21:13)
[2021-05-08] MEDS ORDERED: PNEUMOCOCCAL POLYSACCHARIDES 25 MCG/0.5 ML VIAL/SYR IM ONE (22:15)
[2021-05-09 04:08] LABS: Appearance Urine Clear (Clear); Bilirubin Urine Negative (Negative); Blood Urine Negative (Negative); Color Urine Dark Yellow; Glucose Urine UA Trace (Negative); Ketones Urine 1+ (Negative); Leukocyte Esterase Urine Negative (Negative); Nitrite Urine Negative (Negative); Protein Urine Negative (Negative); Urobilinogen Urine Negative (Negative)
[2021-05-09] MEDS ORDERED: INSULIN HUMAN 70% NPH/30% REGULAR SQ SCH ×2 (07:30→16:30)
[2021-05-09] MEDS: DULoxetine HCL 30 MG CAP PO SCH (08:52)
[2021-05-09] MEDS: metFORMIN HCL 500 MG TAB PO SCH ×2 (08:52→17:53)
[2021-05-09] MEDS: MULTIVITAMIN TAB PO SCH (08:52)
[2021-05-09] MEDS: VITAMIN B COMPLEX TAB PO SCH (08:52)
[2021-05-09] MEDS: ATORVASTATIN 40 MG TAB PO SCH (08:52)
[2021-05-09] MEDS: ASPIRIN 81 MG ECTAB PO SCH (08:53)
[2021-05-09 08:56] LABS: Creatinine Clr Calc Pharmacy 103.5 ml/min; Est GFR (African American) 105.2 ml/min; Est GFR (Non-African American) 90.8 ml/min; Magnesium 1.7 mg/dl (1.8-2.4); Potassium 4.7 mmol/L (3.5-5.1)
[2021-05-09] MEDS: SODIUM CHLORIDE 0.9% 1000ML 1,000 ML IV SCH ×2 (09:11→16:59)
--- NOTE | 2021-05-09 09:30 | Hospitalist Progress Note ---
Date of Service May 09, 2021 Assessment & Plan (1) Weakness: Lopez Quiroz is an 80-year-old male with a history of COVID-19 with subsequent malnutrition and failure to thrive, orthostatic dizziness and global weakness, type 2 diabetes mellitus, and history of cardiac pacemaker who presents his third hospital admission for weakness. Disposition planning: Patient is admitted for his third hospitalization related to weakness. At prior hospitalization acute rehab was discussed, but due to patient mood after discussion was discharged home. On discussion with patient he recognizes that he is very weak, and will need additional strengthening before returning home. We will continue with nutrition assessment and supplementation, PT/OT pending. Anticipate patient would benefit from acute rehab. At this time he does not show signs of bacterial superinfection, but likely has residual failure to thrive and weakness following slow recovery from COVID-19 with initial symptoms 04/06/2021. Global weakness, suspect deconditioning and failure to thrive following COVID-19 Patient with COVID-19 04/08, continues to be positive. Patient with hospital admit from 04/11-04/14 and 04/15-04/22. Following risk-benefit discussion previously patient was discharged home after long conversation regarding potential transfer to acute rehab Patient orthostatic on admission, was treated with gentle fluids and observation Blood pressure improved today to 122/67 Patient feels somewhat improved with better energy, repeat orthostatics pending No leukocytosis, afebrile PT/OT pending Boost nutrition supplementation Consider Marinol versus Remeron nightly if appetite/oral intake not improving Continue iron 325 mg p.o. nightly COVID-19 Improved symptoms, residual weakness Residual positive Covid test No steroids or antivirals indicated at this time Chronic dementia Continue home Aricept 5 mg p.o. at bedtime Hypomagnesemia Recheck pending Magnesium 1.4 on admission, improved to 1.7 with repletion Continue magnesium oxide 400 mg twice daily x2 days, then daily Type 2 diabetes mellitus A1c pending [employer] 70/30 insulin 10 units dinner, 23 units daily with breakfast continued Glucose checks 3 times daily BMP daily DVT prophylaxis: Lovenox Diet: Diabetic, boost supplementation CODE STATUS: Full code Disposition: Telemetry isolation (2) COVID-19: (3) Type 2 diabetes mellitus: (4) SARS-CoV-2 positive: (5) Orthostatic dizziness: Admission and Anticipated Discharge Date Admission Date: May 08, 2021 Supervising Physician Co-Signing Physician Notes Patient seen and examined with Dr. Tavares. I agree with his exam findings, review of systems, assessment and plan. I have personally reviewed the lab work and imaging from today. patient feeling a little better, eating better sugars are running low, see below he agrees with plan for rehab Exam: elderly male, frail appearing, alert and oriented to person, place lungs CTA bilaterally, normal effort heart regular, no murmurs abd soft, NT, ND, + BS no focal neurological deficits A/P: deconditioning, weakness due to recent COVID infection PT, OT, plan for rehab, supportive care while here DM type II, having hypoglycemia on his NPH 70/30 and Metformin stop Metformin, hold NPH diabetic diet and place on Novolog SS for time being anticipate him being here all weekend Subjective Daughter seen at the bedside this morning. He is oriented to name and place, but not to date, including year/month/day. He reports that he feels better today, but endorses feeling weak and fatigued "because of the Covid for a while now". He denies chest pain, chest pressure, fever, chills, sweats, nausea, vomiting, diarrhea, constipation, abdominal pain. He denies cough. He denies change in taste and smell. He ate about half his breakfast, reports he is not very hungry. Poor insight and inconsistent historian on what his nutrition and meals have been like leading up to hospitalization. Review of Systems Review of Systems: Sling negative as noted in HPI, although somewhat limited by cognitive status/dementia Physical Exam Physical Exam: General: Alert, oriented to name. Not oriented to date. Appears frail. NAD. Cooperative. HEENT: Atraumatic, normocephalic. Visual acuity and hearing grossly intact. Pulm: Diminished in the bases, no overt rales or crackles. Symmetrical chest rise. No increase work of breathing. No respiratory distress. Cardiac: RRR, -mrg. Radial pulses intact and symmetrical. Abdominal: Nontender, nondistended, soft. BS present. Results & Data Results & Data ([facility]) Vital Signs (Past 12 Hours) Vital Signs Temp Pulse Pulse Resp BP Pulse Ox 05/09/21 07:46 36.6 C 77 18 122/67 93 05/09/21 07:22 68 05/09/21 05:25 36.6 C 83 18 97/61 L 91 05/09/21 00:27 36.5 C 95 H 18 109/66 93 Resident Activity Tracking Resident Involvement: Resident Care Provided Care Provided: Adult Hospital Medicine (1) Type 2 diabetes mellitus Diabetes mellitus complication status: without complication Diabetes mellitus intermediate manager insulin use: without intermediate manager use Qualified Code(s): E11.9 - Type 2 diabetes mellitus without complications
[2021-05-09 09:45] LABS: Basophils # (auto) 0.01 K/uL (0-0.2); Basophils % (auto) 0.1 %; Eosinophils # (auto) 0.08 K/uL (0-0.5); Hematocrit (blood only) 35.2 % (42-52); Immature Granulocytes # (auto) 0.01 K/uL (0.00-0.02); Immature Granulocytes % (auto) 0.1 %; Lymphocytes # (auto) 1.22 K/uL (1.2-3.4); Lymphocytes % (auto) 14.6 %; Mean Corpuscular Hemoglobin 30.5 pg (25-34); Mean Corpuscular Volume 89.3 fL (80-100); Mean Platelet Volume 10.8 fL (7.4-10.4); Neutrophils # (auto) 6.51 K/uL (1.4-6.5); Neutrophils % (auto) 78.2 %; Platelet Count 187 K/uL (130-400); RDW Coefficient of Variation 16.2 % (11.5-14.5); RDW Standard Deviation 52.5 fL (36.4-46.3); Red Blood Count 3.94 M/uL (4.7-6.1); White Blood Count 8.33 K/uL (4.8-10.8)
[2021-05-09 09:46] LABS: Mean Corpuscular Hgb Conc 34.1 g/dL (32-36)
[2021-05-09] MEDS: MAGNESIUM OXIDE 400 MG TAB PO SCH ×2 (10:22→21:04)
[2021-05-09 10:32] LABS: Estimated Average Glucose 163 mg/dl; Hemoglobin A1C 7.3 % (4.5-5.6)
[2021-05-09] MEDS: ENOXAPARIN INJ 40 MG/0.4 ML SYR SQ SCH (21:02)
[2021-05-09] MEDS: DONEPEZIL HCL 5 MG TAB PO SCH (21:04)
[2021-05-09] MEDS: CHOLECALCIFEROL 1,000 UNITS 25 MCG TAB PO SCH (21:04)
[2021-05-09] MEDS: TAMSULOSIN HCL 0.4 MG CAP PO SCH (21:04)
[2021-05-09] MEDS: FERROUS SULFATE 325 MG TAB PO SCH (21:05)
[2021-05-09] MEDS: INSULIN ASPART 100 UNITS/ML 3 ML PEN SC SCH (21:06)
[2021-05-09] MEDS: DOCUSATE SODIUM 100 MG CAP PO SCH (21:06)
--- NOTE | 2021-05-10 07:30 | Electrocardiogram Report ---
Test Reason : Blood Pressure : / mmHG Vent. Rate : 081 BPM Atrial Rate : 081 BPM P-R Int : 256 ms QRS Dur : 184 ms QT Int : 460 ms P-R-T Axes : 050 -69 091 degrees QTc Int : 534 ms Poor data quality, interpretation may be adversely affected Atrial-sensed ventricular-paced rhythm with prolonged AV conduction Abnormal ECG When compared with ECG of 15-APR-2021 15:12, Ventricular pacing is now present Confirmed by Ildefonso Griffin ([id number]) on 05/10/2021 7:30:00 AM Referred By: SELF Confirmed By:Ildefonso Griffin
[2021-05-10] MEDS: MAGNESIUM OXIDE 400 MG TAB PO SCH ×2 (08:13→21:47)
[2021-05-10] MEDS: DULoxetine HCL 30 MG CAP PO SCH (08:15)
[2021-05-10] MEDS: ASPIRIN 81 MG ECTAB PO SCH (08:15)
[2021-05-10] MEDS: VITAMIN B COMPLEX TAB PO SCH (08:15)
[2021-05-10] MEDS: MULTIVITAMIN TAB PO SCH (08:16)
[2021-05-10] MEDS: ATORVASTATIN 40 MG TAB PO SCH (08:16)
[2021-05-10] MEDS: INSULIN ASPART 100 UNITS/ML 3 ML PEN SC SCH ×4 (08:50→21:45)
--- NOTE | 2021-05-10 11:09 | Hospitalist Progress Note ---
Date of Service May 10, 2021 Assessment & Plan (1) Weakness: Lopez Quiroz is an 80-year-old male with a history of COVID-19 with subsequent malnutrition and failure to thrive, orthostatic dizziness and global weakness, type 2 diabetes mellitus, and history of cardiac pacemaker who presents his third hospital admission for weakness. Disposition planning: Patient is admitted for his third hospitalization related to weakness. At prior hospitalization acute rehab was discussed, but due to patient mood after discussion was discharged home. On discussion with patient he recognizes that he is very weak, and will need additional strengthening before returning home. We will continue with nutrition assessment and supplementation, PT/OT pending. Anticipate patient would benefit from acute rehab. At this time he does not show signs of bacterial superinfection, but likely has residual failure to thrive and weakness following slow recovery from COVID-19 with initial symptoms 04/06/2021. Global weakness, suspect deconditioning and failure to thrive following COVID-19 Patient with COVID-19 04/08, continues to be positive. Patient with hospital admit from 04/11-04/14 and 04/15-04/22. - Following risk-benefit discussion previously patient was discharged home after long conversation regarding potential transfer to acute rehab Patient orthostatic on admission, was treated with gentle fluids and observation Blood pressure improved and is currently 142/80 Patient feels somewhat improved with better energy No leukocytosis, afebrile PT/OT pending; currently planning for dispo to rehab Boost nutrition supplementation Consider Marinol versus Remeron nightly if appetite/oral intake not improving Continue iron 325 mg p.o. nightly COVID-19 Improved symptoms, residual weakness Residual positive Covid test No steroids or antivirals indicated at this time Chronic dementia Continue home Aricept 5 mg p.o. at bedtime Hypomagnesemia Magnesium 1.4 on admission, improved to 1.7 with repletion Continue magnesium oxide 400 mg twice daily x2 days, then daily Will recheck BMP and Mag tomorrow AM Type 2 diabetes mellitus HgbA1c 7.3% on 05/09/21 Metformin discontinued; hold NPH due to having hypoglycemia on his NPH 70/[address] on Novolog SS for time being Glucose checks 3 times daily BMP daily DVT prophylaxis: Lovenox Diet: Diabetic, boost supplementation CODE STATUS: Full code Disposition: Telemetry isolation (2) COVID-19: (3) Type 2 diabetes mellitus: (4) SARS-CoV-2 positive: (5) Orthostatic dizziness: Admission and Anticipated Discharge Date Admission Date: May 08, 2021 Supervising Physician Co-Signing Physician Notes Resident Physician Supervision Note: I independently interviewed and examined the patient and verified the [place] history and physical, reviewed labs and image studies and agree with resident Dr. Hollins findings and care plan. Subjective Patient seen and evaluated at bedside this morning. No specific complaints or concerns. Reports persistent weakness that is unchanged but otherwise feels well. States that he is eating well but he is unable to elaborate as to what his meals have been. Sleeping well. Denies CP, SOB, abd pain, nausea, vomiting, headache, or leg pain. Review of Systems Review of Systems: See HPI Physical Exam Physical Exam: GENERAL: No acute distress. VS reviewed. HENT: Moist mucous membranes. RESPIRATORY: Clear to auscultation bilaterally. No wheezing, rales, or rhonchi. Normal effort CARDIOVASCULAR: Regular rate and rhythm. No murmurs. ABDOMEN: Soft, non-tender and non-distended. Normal bowel sounds. EXTREMITIES: No edema. Non-tender. SKIN: Warm, dry. NEUROLOGIC: Alert and oriented to person and place. No focal neurological deficits. PSYCHIATRIC: Cooperative. Appropriate mood and affect. Results & Data Results & Data ([facility]) Vital Signs (Past 12 Hours) Vital Signs Temp Pulse Pulse Resp BP Pulse Ox 05/10/21 07:56 36.8 C 75 18 142/80 H 92 05/10/21 07:40 71 05/10/21 03:51 36.9 C 72 20 154/79 H 95 05/10/21 00:07 36.8 C 67 18 143/71 H 95 05/10/21 00:00 66 Resident Activity Tracking Resident Involvement: Resident Care Provided Care Provided: Adult Hospital Medicine (1) Type 2 diabetes mellitus Diabetes mellitus complication status: without complication Diabetes mellitus fpc insulin use: without fpc use Qualified Code(s): E11.9 - Type 2 diabetes mellitus without complications
[2021-05-10] MEDS: CHOLECALCIFEROL 1,000 UNITS 25 MCG TAB PO SCH (21:47)
[2021-05-10] MEDS: DOCUSATE SODIUM 100 MG CAP PO SCH (21:47)
[2021-05-10] MEDS: DONEPEZIL HCL 5 MG TAB PO SCH (21:47)
[2021-05-10] MEDS: ENOXAPARIN INJ 40 MG/0.4 ML SYR SQ SCH (21:47)
[2021-05-10] MEDS: FERROUS SULFATE 325 MG TAB PO SCH (21:47)
[2021-05-10] MEDS: TAMSULOSIN HCL 0.4 MG CAP PO SCH (21:51)
[2021-05-11 06:04] LABS: Eosinophils # (auto) 0.06 K/uL (0-0.5); Hematocrit (blood only) 36.1 % (42-52); Hemoglobin 12.9 g/dL (14.0-18.0); Immature Granulocytes # (auto) 0.01 K/uL (0.00-0.02); Immature Granulocytes % (auto) 0.2 %; Lymphocytes # (auto) 1.33 K/uL (1.2-3.4); Lymphocytes % (auto) 21.8 %; Mean Corpuscular Hemoglobin 31.5 pg (25-34); Mean Corpuscular Hgb Conc 35.7 g/dL (32-36); Mean Corpuscular Volume 88.3 fL (80-100); Mean Platelet Volume 10.7 fL (7.4-10.4); Monocytes # (auto) 0.63 K/uL (0.11-0.59); Monocytes % (auto) 10.3 %; Neutrophils # (auto) 4.06 K/uL (1.4-6.5); Neutrophils % (auto) 66.7 %; Platelet Count 185 K/uL (130-400); RDW Coefficient of Variation 15.5 % (11.5-14.5); RDW Standard Deviation 50.1 fL (36.4-46.3); Red Blood Count 4.09 M/uL (4.7-6.1); White Blood Count 6.09 K/uL (4.8-10.8)
[2021-05-11 06:32] LABS: BUN Creatinine Ratio 13.2 (10-20); Calcium 9.3 mg/dl (8.5-10.1); Creatinine Clr Calc Pharmacy 121.4 ml/min; Est GFR (African American) 111.6 ml/min; Est GFR (Non-African American) 96.3 ml/min; Potassium 3.8 mmol/L (3.5-5.1)
--- NOTE | 2021-05-11 07:40 | Hospitalist Progress Note ---
Date of Service May 11, 2021 Assessment & Plan (1) Weakness: Lopez Quiroz is an 80-year-old male with a history of COVID-19 with subsequent malnutrition and failure to thrive, orthostatic dizziness and global weakness, type 2 diabetes mellitus, and history of cardiac pacemaker who was admitted to [facility] on 05/08 for the third time in ~one month for weakness. Disposition planning: Patient is admitted for his third hospitalization related to weakness. At prior hospitalization acute rehab was discussed, but due to patient mood after discussion was discharged home. On discussion with patient he recognizes that he is very weak, and will need additional strengthening before returning home. PT recommends SNF after discharge; CM to kindly assist in placement. At this time he does not show signs of bacterial superinfection, but likely has residual failure to thrive and weakness following slow recovery from COVID-19 with initial symptoms 04/06/2021. Global weakness, suspect deconditioning and failure to thrive following COVID-19 Patient with COVID-19 04/08, continues to be positive. Patient with hospital admit from 04/11-04/14 and 04/15-04/22. - Following risk-benefit discussion previously patient was discharged home after long conversation regarding potential transfer to acute rehab Patient orthostatic on admission, was treated with gentle fluids and observation Blood pressure improved and is currently 140s/80s Boost nutrition supplementation Oral intake improving Continue iron 325 mg p.o. nightly COVID-19 Improved symptoms, residual weakness Residual positive Covid test No steroids or antivirals indicated at this time Chronic dementia Continue home Aricept 5 mg p.o. at bedtime Hypomagnesemia - repleted with IV Mag sulfate on two occasions Continue magnesium oxide 400 mg twice daily x2 days, then daily Will recheck BMP and Mag tomorrow AM Type 2 diabetes mellitus HgbA1c 7.3% on 05/09/21 Metformin discontinued; hold NPH due to having hypoglycemia on his NPH 70/[address] on Novolog SS for time being Glucose checks 3 times daily DVT prophylaxis: Lovenox Diet: Diabetic, boost supplementation CODE STATUS: Full code Disposition: Telemetry isolation Admission and Anticipated Discharge Date Admission Date: May 10, 2021 Supervising Physician Co-Signing Physician Notes Resident Physician Supervision Note: I independently interviewed and examined the patient and verified the [place] history and physical, reviewed labs and image studies and agree with resident Dr. Hollins findings and care plan. Subjective No acute events overnight. Patient reports tolerating diet well. Denies fever/chills, chest pain, palpitations, SOB, cough, N/V, abdominal pain, rash. Review of Systems Review of Systems: Pertinent positives and negatives mentioned in HPI. Physical Exam Physical Exam: General: A&Ox3. NAD. Cooperative. HEENT: Atraumatic, normocephalic. Pulm: CTAB A&P. -wheezes, -rales, -rhonchi. Symmetrical chest rise. No increase work of breathing. No respiratory distress. Cardiac: RRR, -mrg. Radial pulses intact and symmetrical. Abdominal: soft, non-tender, non-distended, BS x 4 Skin: warm, dry, no rash Results & Data Results & Data ([facility]) Vital Signs (Past 12 Hours) Vital Signs Temp Pulse Resp BP Pulse Ox 05/10/21 22:50 36.6 C 67 18 146/79 H 95 05/10/21 19:50 36.7 C 80 18 107/62 92 Resident Activity Tracking Resident Involvement: Resident Care Provided Care Provided: Adult Hospital Medicine
[2021-05-11 08:42] LABS: Magnesium 1.6 mg/dl (1.8-2.4)
[2021-05-11] MEDS: MAGNESIUM OXIDE 400 MG TAB PO SCH ×2 (09:14→21:55)
[2021-05-11] MEDS: ATORVASTATIN 40 MG TAB PO SCH (09:14)
[2021-05-11] MEDS: DULoxetine HCL 30 MG CAP PO SCH (09:14)
[2021-05-11] MEDS: ASPIRIN 81 MG ECTAB PO SCH (09:15)
[2021-05-11] MEDS: MULTIVITAMIN TAB PO SCH (09:15)
[2021-05-11] MEDS: VITAMIN B COMPLEX TAB PO SCH (09:15)
[2021-05-11] MEDS: INSULIN ASPART 100 UNITS/ML 3 ML PEN SC SCH ×4 (09:16→21:50)
[2021-05-11] MEDS: MAGNESIUM SULFATE / D5W 1 GM/100 ML BAG IV SCH ×2 (10:31→12:50)
[2021-05-11] MEDS: ENOXAPARIN INJ 40 MG/0.4 ML SYR SQ SCH (21:55)
[2021-05-11] MEDS: FERROUS SULFATE 325 MG TAB PO SCH (21:55)
[2021-05-11] MEDS: TAMSULOSIN HCL 0.4 MG CAP PO SCH (21:55)
[2021-05-11] MEDS: DONEPEZIL HCL 5 MG TAB PO SCH (21:55)
[2021-05-11] MEDS: CHOLECALCIFEROL 1,000 UNITS 25 MCG TAB PO SCH (21:55)
[2021-05-11] MEDS: DOCUSATE SODIUM 100 MG CAP PO SCH (21:56)
[2021-05-12 06:06] LABS: Basophils # (auto) 0.01 K/uL (0-0.2); Basophils % (auto) 0.2 %; Eosinophils # (auto) 0.16 K/uL (0-0.5); Eosinophils % (auto) 3.1 %; Hematocrit (blood only) 38.1 % (42-52); Hemoglobin 13.1 g/dL (14.0-18.0); Lymphocytes # (auto) 1.48 K/uL (1.2-3.4); Lymphocytes % (auto) 28.3 %; Mean Corpuscular Hemoglobin 30.5 pg (25-34); Mean Corpuscular Hgb Conc 34.4 g/dL (32-36); Mean Corpuscular Volume 88.8 fL (80-100); Mean Platelet Volume 10.8 fL (7.4-10.4); Monocytes # (auto) 0.62 K/uL (0.11-0.59); Monocytes % (auto) 11.9 %; Neutrophils # (auto) 2.96 K/uL (1.4-6.5); Neutrophils % (auto) 56.5 %; Platelet Count 251 K/uL (130-400); RDW Coefficient of Variation 15.5 % (11.5-14.5); RDW Standard Deviation 50.4 fL (36.4-46.3); Red Blood Count 4.29 M/uL (4.7-6.1); White Blood Count 5.23 K/uL (4.8-10.8)
[2021-05-12 06:45] LABS: BUN Creatinine Ratio 11.8 (10-20); Calcium 8.9 mg/dl (8.5-10.1); Creatinine Clr Calc Pharmacy 102.1 ml/min; Est GFR (African American) 103.9 ml/min; Est GFR (Non-African American) 89.7 ml/min; Magnesium 2.2 mg/dl (1.8-2.4); Phosphorus 3.2 mg/dl (2.5-4.9)
[2021-05-12] MEDS: INSULIN ASPART 100 UNITS/ML 3 ML PEN SC SCH ×4 (09:19→20:38)
[2021-05-12] MEDS: ATORVASTATIN 40 MG TAB PO SCH (09:24)
[2021-05-12] MEDS: MAGNESIUM OXIDE 400 MG TAB PO SCH ×2 (09:24→20:32)
[2021-05-12] MEDS: ASPIRIN 81 MG ECTAB PO SCH (09:24)
[2021-05-12] MEDS: MULTIVITAMIN TAB PO SCH (09:24)
[2021-05-12] MEDS: VITAMIN B COMPLEX TAB PO SCH (09:24)
[2021-05-12] MEDS: DULoxetine HCL 30 MG CAP PO SCH (09:24)
--- NOTE | 2021-05-12 10:21 | Hospitalist Progress Note ---
Date of Service May 12, 2021 Assessment & Plan (1) Weakness: Lopez Quiroz is an 80-year-old male with a history of COVID-19 with subsequent malnutrition and failure to thrive, orthostatic dizziness and global weakness, type 2 diabetes mellitus, and history of cardiac pacemaker who was re-admitted to [facility] on 05/08 for weakness for the third time in about one month. Disposition planning: patient is admitted for his third hospitalization related to weakness At prior hospitalization acute rehab was discussed, but due to patient mood after discussion was discharged home. On discussion with patient he recognizes that he is very weak, and will need additional strengthening before returning home. PT recommends SNF after discharge; CM to kindly assist in placement At this time he does not show signs of bacterial superinfection, but likely has residual failure to thrive and weakness following slow recovery from COVID-19 (initial symptoms 04/06/21) Global weakness, suspect deconditioning and failure to thrive following COVID-19 Patient with COVID-19 (positive test 04/08/21), continues to be positive; patient with hospital admit from 04/11-04/14 and 04/15-04/22 Patient orthostatic on admission, was treated with gentle fluids and observation Blood pressure improved Boost nutrition supplementation Consider marinol or remeron nightly if appetite/oral intake not improving Continue iron 325mg PO nightly COVID-19 Improved symptoms, residual weakness Residual positive Covid test No treatment indicated at this time Dementia Continue home aricept 5mg PO at bedtime Hypomagnesemia (resolved) Repleted with IV Mag sulfate on two occasions; continue magnesium oxide 400mg daily Recheck magnesium level every other day Type 2 diabetes mellitus HgbA1c 7.3% (05/09) Metformin discontinued; hold NPH due to having hypoglycemia on his NPH 70/[address] on novolog SS for time being Glucose checks 3 times daily BMP daily FEN: diabetic diet with boost supplementation Code status: full code DVT ppx: lovenox Isolation: none Dispo: med/surg tele Admission and Anticipated Discharge Date Admission Date: May 10, 2021 Supervising Physician Co-Signing Physician Notes I also saw the patient and confirmed [place] portions of the history and physical examination. Agree with the impression and plan as noted in the resident documentation. 80-year-old male with history of COVID-19 greater than 30 days prior admitted to the hospital with weakness suspected secondary to deconditioning and failure to thrive following COVID-19. Overall, seems better status post some gentle rehydration and electrolyte repletion. Plan is for SNF based on recommendations of physical therapy. Case management coordinating. Subjective Patient seen and evaluated at bedside this morning. No acute events overnight. Patient feels well today, complaining only of fatigue. Denies CP, SOB, vision change, nausea, vomiting, abdominal pain, dizziness, or other symptoms. Review of Systems Review of Systems: See HPI Physical Exam Physical Exam: Constitutional: well-appearing, no acute distress CV: regular rhythm, no murmur appreciated, extremities well-perfused Resp: CTABL, no wheezes/rales/rhonchi appreciated, no increased work of breathing Skin: warm, dry, no rash appreciated Neuro: AOx4, no focal neurological deficits appreciated Results & Data Results & Data ([facility]) Vital Signs (Past 12 Hours) Vital Signs Temp Pulse Resp BP Pulse Ox 05/12/21 08:41 36.5 C 18 05/12/21 05:41 36.7 C 68 18 132/78 93 Resident Activity Tracking Resident Involvement: Resident Care Provided Care Provided: Adult Hospital Medicine
--- NOTE | 2021-05-12 13:15 | XCELERA ---
[id number]
[2021-05-12] MEDS: CHOLECALCIFEROL 1,000 UNITS 25 MCG TAB PO SCH (20:29)
[2021-05-12] MEDS: ENOXAPARIN INJ 40 MG/0.4 ML SYR SQ SCH (20:31)
[2021-05-12] MEDS: DOCUSATE SODIUM 100 MG CAP PO SCH (20:31)
[2021-05-12] MEDS: DONEPEZIL HCL 5 MG TAB PO SCH (20:31)
[2021-05-12] MEDS: FERROUS SULFATE 325 MG TAB PO SCH (20:32)
[2021-05-12] MEDS: TAMSULOSIN HCL 0.4 MG CAP PO SCH (20:33)
[2021-05-13] MEDS: INSULIN ASPART 100 UNITS/ML 3 ML PEN SC SCH ×3 (08:54→17:58)
[2021-05-13] MEDS: ASPIRIN 81 MG ECTAB PO SCH (08:55)
[2021-05-13] MEDS: VITAMIN B COMPLEX TAB PO SCH (08:56)
[2021-05-13] MEDS: DULoxetine HCL 30 MG CAP PO SCH (08:56)
[2021-05-13] MEDS: MULTIVITAMIN TAB PO SCH (08:56)
[2021-05-13] MEDS: ATORVASTATIN 40 MG TAB PO SCH (08:56)
[2021-05-13] MEDS: MAGNESIUM OXIDE 400 MG TAB PO SCH (08:57)
--- NOTE | 2021-05-13 18:34 | Discharge Summary ---
Date of Service May 13, 2021 Admission HPI Per Admitting Provider This is an 80-year-old male with past medical history of Covid 19, first diagnosed on 04/08 with multiple hospitalizations that presents today with significant weakness. Patient is asleep during the interview, his daughter was at bedside was able to complete history. Patient was hospitalized here on with weakness that was found to be secondary to COVID-19. He was discharged but returned to the hospital 04/15-04/22 with similar issues of weakness and failure to thrive. It appears that Dr. Palomo care for the patient both times, had a long conversation with the daughter regards to possible transfer to acute rehab as the patient was so weak and not doing well. However, there were concerns regarding his mood and therefore the final decision was made to take the patient home. The daughter reports that the patient seem to be doing better at first after his return home. He was eating and drinking and was able to ambulate a bit with his walker. She was trying to push hydration both with water and some Pedialyte. However, over the past 48 hours she seems to have relapsed. He is much more weak and sleeps much of the time. He gets a somewhat dizzy and more confused with any sort of activity. He also had some minor falls at home. She brought him back to the hospital for further evaluation and reconsideration of possible placement. In the ER, he was found to be mildly hypotensive with a BP of 98/50. Pulse was 63. It was reported to me by the ER physician that he was orthostatic as well and the daughter notes his blood pressure dropped into the mid 80s with standing. The daughter is understandably frustrated with hospital policy as well as with the general global epidemic that is COVID-19. Admission Exam Per Admitting Provider Constitutional: + frail appearing; no acute distress Asleep Neck: trachea midline, no thyromegaly Respiratory: normal respiratory effort Auscultation: lungs clear to auscultati on bilaterally; no crackles, no rales, no rhonchi and no wheezes Cardiovascular: Rate/Rhythm: regular rate and regular rhythm Heart Sounds: normal S1 and normal S2; no murmur Gastrointestinal (Abdomen): Inspection/Auscultation: abdomen normal to inspection Percussion/Palpation: abdomen soft; no guarding, abdomen not rigid and no hepatosplenomegaly Skin: no rashes, warm and dry Principal Diagnosis Weakness, deconditioning, failure to thrive Discharge Exam Constitutional: well-appearing, no acute distress CV: regular rhythm, no murmur appreciated, extremities well-perfused Resp: CTABL, no wheezes/rales/rhonchi appreciated, no increased work of breathing Skin: warm, dry, no rash appreciated Neuro: AOx4, no focal neurological deficits appreciated Discharge Data Allergies Allergy/AdvReac Type Severity Reaction Status Date / Time No Known Allergies Allergy Verified 05/08/21 16:20 Consultations 05/08/21 16:27 ED Decision to Admit Stat Ordered Studies 05/08/21 14:16 CT head/brain wo con Stat Hospital Course (1) Weakness: Global weakness, suspect deconditioning and failure to thrive following COVID-19 Patient's history of covid infection (first positive test 04/08/21) was noted on admission, as was his two subsequent admissions (04/11-04/14 and 04/15-04/22). Patient responded well to IVF and improved PO intake with Boost nutrition supplementation. Discharge to [facility] was recommended, but case management found difficulty finding a facility that would accept patient given his recent history of covid infection. Patient and patient's family decided to pursue discharge home with home health. Patient was discharged on hospital day five in stable condition. Orthostasis, hypovolemia Patient was noted to be orthostatic on admission; patient's lowest BP during his stay was 95/60 on hospital day two. Patient was treated with gentle IVF; BP responded well. Patient's BP did not become an issue for the remainder of his hospital stay. PO intake was encouraged during his stay and upon discharge. COVID-19 As above, patient's history of covid infection was noted on exam. Patient was asymptomatic from an upper respiratory standpoint during his hospitalization. No treatment was indicated. Dementia Patient's home dose aricept was continued during his hospitalization. Hypomagnesemia (resolved) Patient was noted to have hypomagnesemia on admission. Patient was treated with IV magnesium sulfate, and magnesium levels normalized. Patient was then transitioned to daily oral magnesium oxide, which was continued upon discharge. DM2 Patient's home DM2 regimen was held on admission. BSG was controlled with sliding-scale insulin. HbA1c was 7.3% (05/09). Continued outpatient management was encouraged. Total Time Total Time Spent Total Time Spent (In Minutes): 25 minutes Discharge Plan Discharge Items Patient Disposition: Home - Home Health Services Reason For Visit: FAILURE TO THRIVE Discharge Diagnosis: Weakness, deconditioning Activity: Per Instructions section Non-emergency contact: Primary Care Provider Call non-emergency contact if: your symptoms worsen Follow-up/Referrals: Melany Olson MD [Primary Care Provider] - Diet: Carb Consistent or DM2 Addtl Attending Provider Instructions: You were admitted to the hospital for weakness and deconditioning. You were treated with physical therapy. We recommend discharge to a rehab facility, but understand it is difficult to find a facility that will accept you due to your recent covid illness, and you have decided to be discharged home with home health services. A discharge summary will be sent to your primary care physician to ensure continuity of care. Please bring this discharge summary with you to your next office appointment so that your provider can review it at that time. Follow-up appointments: Make a follow-up appointment with your PCP within the next week. It is very important that you follow up with them shortly after discharge from the hospital. Keep all your follow-up appointments as already scheduled. If you cannot make an appointment, notify your provider. Medications: Your medication list has been reviewed and reconciled upon discharge to ensure accuracy and continuity of care. An updated list of all your medications is included with your hospital discharge paperwork. Please review this list closely, and make note of any changes. Take your medications as instructed; do not skip a dose of your medicines. Make sure all of your doctors know every medicine you are taking (including jtjk-miq-mzxciiz medicines, vitamins, and supplements). Call your primary care provider before taking any new medicines (including asjf-wjt-gisjmvg medicines, vitamins, and supplements), because some of these may interact with your current medications, or may make your symptoms worse. Tell your primary care provider if you cannot afford your medications. CONTACT YOUR PRIMARY CARE PROVIDER if you experience any of the following: Instability on your feet Lightheadedness, dizziness, or continued weakness Inability to complete activities of daily living like eating, drinking, or using the restroom Difficulty following your treatment plan, or difficulty taking medications CALL 911 OR GO TO THE EMERGENCY DEPARTMENT if you experience any of the following: Falling Sudden, severe abdominal pain or nausea/vomiting Severe chest pain, or chest pain that radiates (moves) to your jaw or arm Sudden, severe shortness of breath or difficulty breathing Thank you for allowing us to participate in your care. Pending Studies at Discharge: No Stand-Alone Forms: [facility] Medications and DC Order Prescriptions: Continued aspirin [Aspirin Low Dose] 81 mg Tablet,Delayed Release (Dr/Ec) 81 mg PO QAM RF: 0 metformin 1,000 mg Tablet 1,000 mg PO BID RF: 0 vitamin B complex Capsule 1 cap PO QAM RF: 0 docusate sodium 100 mg Capsule 100 mg PO QPM RF: 0 donepezil 5 mg tablet 5 mg PO HS RF: 0 tamsulosin [Flomax] 0.4 mg Capsule 0.4 mg PO HS Qty: 0 RF: 0 multivitamin Tablet 1 tab PO QAM RF: 0 ferrous sulfate [iron] 325 mg (65 mg iron) Tablet 325 mg PO HS RF: 0 cholecalciferol (vitamin D3) [Vitamin D3] 25 mcg (1,000 unit) Capsule 25 mcg PO HS RF: 0 Probiotic 3 billion cell Capsule 0 mmu cells PO HS RF: 0 omeprazole 20 mg capsule,delayed release(DR/EC) 20 mg PO DAILY PRN (Reason: gerd) RF: 0 atorvastatin 40 mg tablet 40 mg PO DAILY RF: 0 duloxetine 30 mg capsule,delayed release(DR/EC) 30 mg PO DAILY RF: 0 Novolin 70/30 U-100 Insulin 100 unit/mL (70-30) suspension 23 unit SUBCUT QAM RF: 0 Novolin 70/30 U-100 Insulin 100 unit/mL (70-30) suspension 10 unit SUBCUT QPM RF: 0 Discharge Orders: Discharge Order (Routine); Ordered 05/13/21 Ordered By: Abisai Garcia/Other Patient Handouts: Managing Type 2 Diabetes, A1C Admission Data Admit Date/Time: 05/10/21 15:38 Attending Provider: Ghanshyam Beach Admit Provider: Michi Ramirez Primary Care Provider: Melany Olson Other Providers: [facility] ; Gordo Rodriguez ; Michi Ramirez ; Raymond Lanza [facility] Other Interventions: Discharge Summary Assessment (RN) Last Done: 05/13/21 16:57 Supervising Physician Co-Signing Physician Notes I also saw the patient and confirmed [place] portions of the history and physical examination. Agree with the impression and plan as noted in the resident documentation. 80-year-old male with history of COVID-19 greater than 30 days prior admitted to the hospital with weakness suspected secondary to deconditioning and failure to thrive following COVID-19. Overall, seems better status post some gentle rehydration and electrolyte repletion. Unfortunately he was denied to facilities for admission based on his persistent COVID-19 positive test. I do not believe he is currently infectious it is unusual to see persistent positive test. Nonetheless, patient's family would like to take him home with outpatient physical therapy/Occupational Therapy. Case management coordinating. Resident Activity Tracking Resident Involvement: Resident Care Provided Care Provided: Adult Hospital Medicine
== END 2021-05-13 18:16 | disposition home health service (06) ==
LOC: ED 13:21 → 2S 13:21 → SUATTDRO 18:04 → 2S 19:58 → SUATTDRO 05-10 15:38 → 3E 05-10 17:50